=== PATIENT | female | born 1960 | race Caucasian/White ===

== ENCOUNTER 2023-04-23 10:24 | Outpatient (OUT) | payer OTHER, SELFPAY ==
[2023-04-23 10:41] LABS: Hematocrit 42.2 % (36.0-48.0); Hemoglobin 13.1 g/dL (12.0-16.0); Mean Corpuscular Hemoglobin 29.3 pg (26.7-34.0); Mean Corpuscular Volume 94.4 fL (81.0-99.0); Mean Platelet Volume 10.9 fL (9.5-13.5); Platelet Count 209 10^3/uL (150-450); Red Blood Count 4.47 10^6/uL (4.20-5.40); Red Cell Distribution Width 12.4 % (11.0-15.0); White Blood Count 7.4 10^3/uL (4.0-11.0)
[2023-04-23 10:42] LABS: Bilirubin Urine NEGATIVE (NEGATIVE); Blood Urine NEGATIVE (NEGATIVE); Clarity Urine CLEAR (CLEAR); Color Urine YELLOW (YELLOW); Glucose Urine UA NEGATIVE (NEGATIVE); Ketones Urine NEGATIVE (NEGATIVE); Leukocyte Esterase Urine NEGATIVE (NEGATIVE); Nitrite Urine NEGATIVE (NEGATIVE); Protein Urine NEGATIVE (NEG/TRACE); Urobilinogen Urine 0.2 EU/dL (0.2-1.0); pH Urine 5.5 (5.0-9.0)
[2023-04-23 11:08] LABS: Creatinine Urine Random 138.92 mg/dL (20.00-300.00); Total Protein Urine Random 14.2 mg/dL (<=11.9)
[2023-04-23 11:16] LABS: WBC Urine NONE SEEN #/HPF (NONE SEEN)
[2023-04-23 11:17] LABS: Bacteria Urine MODERATE #/HPF (NONE SEEN); Mucus Urine NONE SEEN (NONE SEEN); RBC Urine NONE SEEN #/HPF (0-2); Squamous Epithelial Cell Urine MODERATE #/LPF (NONE/RARE)
[2023-04-23 12:05] LABS: Albumin Level 3.4 g/dL (3.4-5.0); Anion Gap 10.8; BUN Creatinine Ratio 11.2; Carbon Dioxide 27.8 mmol/L (21.0-32.0); Chloride 103 mmol/L (98-107); Estimated GFR (African America 57 (>=60); Estimated GFR (Non-African Ame 47 (>=60); Glucose 136 mg/dL (74-106); Magnesium 2.2 mg/dL (1.8-2.4); Phosphorus 3.2 mg/dL (2.6-4.7); Potassium 3.6 mmol/L (3.5-5.1); Sodium 138 mmol/L (136-145); Uric Acid 5.6 mg/dL (2.6-6.0)
[2023-04-24 12:09] LABS: PTH, Intact 38 pg/mL (15-65)
== END 2023-04-23 10:25 | disposition home or self-care (01) ==
LOC: LAB 10:24
PROVIDERS: Visit Provider Internal Medicine
DX: I12.9 Hypertensive chronic kidney disease with stage 1 through stage 4 chronic kidney disease, or unspecified chronic kidney disease (principal); N18.30 Chronic kidney disease, stage 3 unspecified; E55.9 Vitamin D deficiency, unspecified; N20.0 Calculus of kidney; R31.29 Other microscopic hematuria
CPT/HCPCS: 36415; 80069; 81001; 82306; 82570; 83735; 83970; 84156; 84550; 85027

== ENCOUNTER 2024-03-26 10:03 | Outpatient (OUT) | payer OTHER, SELFPAY ==
[2024-03-26 10:28] LABS: Hematocrit 42.9 % (36.0-48.0); Hemoglobin 13.5 g/dL (12.0-16.0); Mean Corpuscular HGB Conc 31.5 g/dL (29.9-35.2); Mean Corpuscular Hemoglobin 29.1 pg (26.7-34.0); Mean Corpuscular Volume 92.5 fL (81.0-99.0); Mean Platelet Volume 10.9 fL (9.5-13.5); Platelet Count 226 10^3/uL (150-450); Red Blood Count 4.64 10^6/uL (4.20-5.40); Red Cell Distribution Width 12.6 % (11.0-15.0)
--- OUTSIDE RECORDS SUMMARY | 2024-03-26 10:29 | XMS_ITS | CCD ---
Author Organization [facility] Care Team Providers Care [facility] Service Specialist Name Role Phone Canelo Woodard Unavailable Libby Mcclure Unavailable Louis Stanley Unavailable Angus Carl Unavailable ROB, CANELO Consulting Unavailable ROB, CANELO Admitting Unavailable LIBBY MCCLURE Primary Care Unavailable ROB, CANELO Attending Unavailable ROB, CANELO Admitting Unavailable LIBBY MCCLURE Primary Care Unavailable ROB, CANELO Attending Unavailable ROB, CANELO Consulting Unavailable No Pcp, No Pcp Primary Care Provider Unavailabl e KIM COLLIER Attending Unavailable NO PCP, NO PCP Primary Care Unavailable KIM COLLIER Attending Unavailable KIM COLLIER Referring Unavailable NO PCP, NO PCP Primary Care Unavailable JUWAN STRINGER Referring Unavailable NO PCP, NO PCP Primary Care Unavailable JUAN MANUEL CASTELLANO Referring Unavailable NO PCP, NO PCP Primary Care Unavailable Medications Current Medications Medication Drug Class(es) Dates Sig (Normalized) Sig (Original) amLODIPine 5 mg oral tablet (5 sources) Dihydropyridine Calcium Channel [place] take 1 tablet by mouth every twenty-four hours amLODIPine Besylate 5 MG 1 tablet Orally Once a day for 90 day(s) Active aspirin 81 mg chewable tablet (14 sources) Platelet Aggregation Inhibitor, Nonsteroidal Anti-inflammatory Drug Start: 02-01-2024 aspirin 81 mg chewable tablet Chew 1 tablet (81 mg total) and swallow in the morning. 90 tablet 1 02/01/2024 Active Start: 01-30-2023 aspirin 81 mg chewable tablet Chew 1 tablet (81 mg total) and swallow in the morning. 90 tablet 3 01/30/2023 Active take 1 tablet by araon th once daily Aspirin 81 81 MG 1 tablet Orally Once a day Active atorvastatin 40 mg oral tablet (15 sources) HMG-CoA Reductase Inhibitor Start: 01-18-2024 take 1 tablet by mouth once daily atorvastatin (LIPITOR) 40 mg tablet take 1 tablet by mouth nightly 90 tablet 01/18/2024 Active Start: 01-30-2023 End: 05-03-2023 take 1 tablet by mouth once daily atorvastatin (LIPITOR) 40 mg tablet TAKE 1 TABLET BY MOUTH NIGHTLY 90 tablet 2 05/03/2023 Active take 1 tablet by aaron th every twenty-four hours Atorvastatin Calcium 40 MG 1 tablet Orally Once a day for 90 day(s) Active cetirizine hydrochloride 10 mg oral tablet (19 sources) Histamine-1 Receptor Antagonist Start: 09-26-2019 take 1 tablet by mouth every twenty-four hours Cetirizine HCl 10 MG 1 tablet Orally Once a day for 90 days September, Active Dosoquin 5500-200 UNIT-MCG (8 sources) take 1 tablet by mouth once daily at mealtime Dosoquin 5500-200 UNIT-MCG 1 tablet daily with food Orally 3xweek Active Dosoquin 5500-20 0 UNIT-MCG 1 tablet daily with food Orally every other day for 90 days Active Dosoquin 5500-20 0 UNIT-MCG 1 tablet daily with food Orally every other day Active fluticasone propionate 0.05 mg/actuat metered dose nasal spray (1 source) Corticosteroid Start: 10-19-2021 take 2 spray(s) nasal route once daily Fluticasone Propionate 50 MCG/ACT 2 sprays Nasally Once a day for 14 day(s) Oct, Active Folinic-Plus 4-50-2 MG (14 sources) take 1 tablet by mouth once daily Folinic-Plus 4-50-2 MG 1 tablet Orally qd for 30 days Active take 1 tablet by mouth once sue y Folinic-Plus 4-50-2 MG 1 tablet Orally qd for 90 days Active hydrocortisone 10 mg/ml / neomycin 3.5 mg/ml / polymyxin b [id number] unt/ml otic suspension (1 source) Aminoglycoside Antibacterial, Polymyxin-class Antibacterial, Corticosteroid Start: 10-19-2021 Kpoxulqt-Ignjqbxvl-JR 3.5-88341-3 3 drops right ear Three times a day for 7 days Oct, Active lisinopril 2.5 mg oral tablet (20 sources) Angiotensin Converting Enzyme Inhibitor Start: 02-14-2023 End: 08-06-2023 take 1 tablet by mouth once daily in the morning lisinopriL (PRINIVIL,ZESTRIL) 2.5 mg tablet take 1 tablet by mouth every morning 90 tablet 2 08/06/2023 Active take 1 tablet by aaron th every twenty-four hours Lisinopril 2.5 MG 1 Tablet Orally Once a day Active take 1 tablet by aaron th every twenty-four hours Lisinopril 40 MG 1 Tablet Orally Once a day for 90 day(s) Active 24 hr metoprolol succinate 25 mg extended release oral tablet (14 sources) beta-Adrenergic [place] Start: 01-18-2024 take 1 tablet by mouth once daily in the morning metoprolol succinate XL (TOPROL XL) 25 mg 24 hr tablet take 1 tablet by mouth every morning 90 tablet 1 01/18/2024 Active Start: 01-30-2023 take 1 tablet by aaron th once daily in the morning metoprolol succinate XL (TOPROL XL) 25 mg 24 hr tablet TAKE 1 TABLET BY MOUTH EVERY MORNING 90 tablet 3 01/30/2023 Active take 1 tablet by aaron th every twenty-four hours Metoprolol Succinate ER 25 MG 1 tablet Orally Once a day Active Nitro Sublingual 0.4 0.4mg (9 sources) Nitro Sublingual 0.4 0.4mg 1 Sublingual Every 5min x3 Active nitroglycerin 0.4 mg sublingual tablet (5 sources) Nitrate Vasodilator Start: 05-28-19 nitroglycerin (NITROSTAT) 0.[address] 1 tablet (0.4 mg total) under the tongue every 5 (five) minutes as needed for chest pain. 90 tablet 1 05/28/2021 Active pantoprazole 40 mg delayed release oral tablet (19 sources) Proton Pump Inhibitor Start: 11-23-19 21 take 1 tablet by mouth every twenty-four hours Pantoprazole Sodium 40 MG 1 tablet Orally Once a day for 30 day(s) Nov, Active 24 hr propranolol hydrochloride 80 mg extended release oral capsule (5 sources) beta-Adrenergic [place] Start: 11-07-19 20 take 1 capsule by mouth every twenty-four hours Propranolol HCl ER 80 MG 1 capsule Orally Once a day for 90 days Nov, Active Completed/Discontinued Medications Medication Drug Class(es) Dates Sig (Normalized) Sig (Original) prasugrel (8 sources) P2Y12 Platelet Inhibitor Prasugr el Hcl 10 mg Take as directed Not-Taking Prasugrel Hcl 10 mg Take as directed Active Problems Active Problems Problem Classification Problem Date Documented Date Episodic/Chronic Abdominal pain (15 sources) Epigastric pain; Translations: [Epigastric pain] Episodic Acute myocardial infarction (7 sources) Myocardial infarction; Translations: [ST elevation (STEMI) myocardial infarction of unspecified site] Onset: 05-26-2021 05-26-2021 Chronic Calculus of urinary tract (18 sources) Kidney stone; Translations: [Calculus of kidney] Onset: 08-18-2021 Resolved: 08-18-2021 Episodic Chronic kidney disease (17 sources) Chronic kidney disease; Translations: [Chronic kidney disease, stage III (moderate)] Onset: 08-18-2021 Resolved: 08-18-2021 Coronary atherosclerosis and other heart disease (2 sources) Arteriosclerotic vascular disease; Translations: [Atherosclerotic heart disease of [place] coronary artery without angina pectoris] Onset: 07-23-2023 07-23-2023 Chronic Disorders of lipid metabolism (7 sources) Hyperlipidemia; Translations: [Other hyperlipidemia] Onset: 01-10-2022 01-10-2022 Chronic Essential hypertension (20 sources) Essential hypertension; Translations: [Essential (primary) hypertension] Onset: 06-06-2021 Resolved: 11-29-2021 Chronic Gastroduodenal ulcer (except hemorrhage) (15 sources) Peptic ulcer; Translations: [Peptic ulcer, site unspecified, unspecified as acute or chronic, without hemorrhage or perforation] Chronic Genitourinary symptoms and ill-defined conditions (4 sources) Other microscopic hematuria; Translations: [OTHER MICROSCOPIC HEMATURIA] Onset: 08-18-2021 Resolved: 08-18-2021 Episodic Hypertension with complications and secondary hypertension (20 sources) Chronic kidney disease due to hypertension; Translations: [Hypertensive chronic kidney disease with stage 1 through stage 4 chronic kidney disease, or unspecified chronic kidney disease] Onset: 08-18-2021 Resolved: 08-18-2021 Chronic Nutritional deficiencies (19 sources) Vitamin D deficiency; Translations: [Vitamin D deficiency, unspecified] Onset: 04-06-2021 Resolved: 08-18-2021 Chronic Other aftercare (1 source) Encounter for follow-up examination after completed treatment for conditions other than malignant neoplasm Episodic Other aftercare (1 source) Other mcc (current) drug therapy; Translations: [Other mcc (current) drug therapy] Onset: 01-28-2024 Episodic Other screening for suspected conditions (not mental disorders or infectious disease) (1 source) Encounter for screening for malignant neoplasm of colon Episodic Unclassified (1 source) CHRN KIDNEY DISEASE STG 3 UNSP; Translations: [CHRN KIDNEY DISEASE STG 3 UNSP] Onset: 10-04-2022 Past or Other Problems Problem Classification Problem Date Documented Da te Episodic/Chronic Conditions associated with dizziness or vertigo (2 sources) Dizziness; Translations: [Dizziness and giddiness] Onset: 07-23-2023 07-23-2023 Episodic Residual codes; unclassified (6 sources) Tobacco user; Translations: [Tobacco use] Onset: 01-10-2022 01-10-2022 Episodic Residual codes; unclassified (1 source) Tobacco use; Translations: [Tobacco use] Onset: 01-10-2022 Episodic Results Test Name Value Interpretation Reference Range Facility BASIC METABOLIC PANLon 02-19 Anion gap [Moles/Vol] 11 mmol/L Normal 5-15 [facility] Comment on above: Performed By: #### B MP #### [facility] ([id number]) [address] [place] [address], [address] [place] [address] Calcium [Mass/Vol] 9.3 mg/dL Normal 8.5-10.5 [facility] Comment on above: Performed By: #### B MP #### [facility] ([id number]) [address] [place] [address], [address] [place] [address] Chloride [Moles/Vol] 104 mmol/L Normal 98-109 [facility] Comment on above: Performed By: #### B MP #### [facility] ([id number]) [address] [place] [address], [address] [place] [address] CO2 [Moles/Vol] 25 mmol/L Normal 22-32 [facility] Comment on above: Performed By: #### B MP #### [facility] ([id number]) [address] [address] [place] [address] Creatinine [Mass/Vol] 1.09 mg/dL High 0.40-1.00 [facility] Comment on above: Result Comment: METH OD TRACEABLE TO IDMS STANDARD Performed By: #### B MP #### [facility] ([id number]) [address] [address] [place] [address] GFR/1.73 sq M.predicted among non-blacks MDRD (S/P/Bld) [Vol rate/Area] 56 mL/min/{1.73_m2} Low >59 [facility] Comment on above: Result Comment: Reported eGFR is based on the CKD-EPI 2020 equation that does not use a race coefficient. Performed By: #### B MP #### [facility] ([id number]) [address] [address] [place] [address] Glucose [Mass/Vol] 112 mg/dL High 65-99 [facility] Comment on above: Performed By: #### B MP #### [facility] ([id number]) [address] [address] [place] [address] Potassium [Moles/Vol] 4.0 mmol/L Normal 3.5-5.0 [facility] Comment on above: Performed By: #### B MP #### [facility] ([id number]) [address] [address] [place] [address] Sodium [Moles/Vol] 140 mmol/L Normal 134-146 [facility] Comment on above: Performed By: #### B MP #### [facility] ([id number]) [address] [address] [place] [address] Urea nitrogen [Mass/Vol] 15 mg/dL Normal 5-27 [facility] Comment on above: Performed By: #### B MP #### [facility] ([id number]) [address] [place] [address] BASIC METABOLIC PANLon 01-27 Anion gap [Moles/Vol] 7 mmol/L Normal 5-15 [facility] Comment on above: Performed By: #### 2 4331-1, BMP #### [facility] ([id number]) [address], [address] [place] [address] Calcium [Mass/Vol] 9.5 mg/dL Normal 8.5-10.5 [facility] Comment on above: Performed By: #### 2 4331-1, BMP #### [facility] ([id number]) [address], [address] [place] [address] Chloride [Moles/Vol] 103 mmol/L Normal 98-109 [facility] Comment on above: Performed By: #### 2 4331-1, BMP #### [facility] ([id number]) [address], [address] [place] [address] CO2 [Moles/Vol] 28 mmol/L Normal 22-32 [facility] Comment on above: Performed By: #### 2 4331-1, BMP #### [facility] ([id number]) [address], [address] [place] [address] Creatinine [Mass/Vol] 1.26 mg/dL High 0.40-1.00 [facility] Comment on above: Result Comment: METH OD TRACEABLE TO IDMS STANDARD Performed By: #### 2 4331-1, BMP #### [facility] ([id number]) [address], [address] [place] [address] GFR/1.73 sq M.predicted among non-blacks MDRD (S/P/Bld) [Vol rate/Area] 47 mL/min/{1.73_m2} Low >59 [facility] Comment on above: Result Comment: Reported eGFR is based on the CKD-EPI 2020 equation that does not use a race coefficient. Performed By: #### 2 4331-1, BMP #### [facility] ([id number]) [address], [address] [place] [address] Glucose [Mass/Vol] 102 mg/dL High 65-99 [facility] Comment on above: Performed By: #### 2 4331-1, BMP #### [facility] ([id number]) [address], [address] [place] [address] Potassium [Moles/Vol] 4.2 mmol/L Normal 3.5-5.0 [facility] Comment on above: Performed By: #### 2 4331-1, BMP #### [facility] ([id number]) [address], [address] [place] [address] Sodium [Moles/Vol] 138 mmol/L Normal 134-146 [facility] Comment on above: Performed By: #### 2 4331-1, BMP #### [facility] ([id number]) [address], [address] [place] [address] Urea nitrogen [Mass/Vol] 11 mg/dL Normal 5-27 [facility] Comment on above: Performed By: #### 2 4331-1, BMP #### [facility] ([id number]) [address], [address] [place] [address] Lipid 1996 panelon 4 Cholesterol [Mass/Vol] 149 mg/dL Low 150-200 [facility] Comment on above: Performed By: #### 2 4331-1, BMP #### [facility] ([id number]) [address], [address] [place] [address] Cholesterol in HDL [Mass/Vol] 48 mg/dL Normal >39 [facility] Comment on above: Result Comment: HDL <40 mg/dL - High Risk HDL > or = 40mg/dL- Desirable HDL >60 mg/dL - Negative Risk Performed By: #### 2 4331-1, BMP #### [facility] ([id number]) [address], [address] [place] [address] Cholesterol in LDL [Mass/Vol] 76 mg/dL Normal <130 [facility] Comment on above: Result Comment: LDL <100 mg/dL - Desirable LDL >160 mg/dL - High Risk Performed By: #### 2 4331-1, BMP #### [facility] ([id number]) [address], [address] [place] [address] Cholesterol in VLDL [Mass/Vol] 25 mg/dL Normal 0-30 [facility] Comment on above: Performed By: #### 2 4331-1, BMP #### [facility] ([id number]) [address], [address] [place] [address] CHOLESTEROL:HDL 3.1 Normal 1.0-5.0 [facility] Comment on above: Performed By: #### 2 4331-1, BMP #### [facility] ([id number]) [address], [address] [place] [address] Triglyceride [Mass/Vol] 127 mg/dL Normal 27-150 [facility] Comment on above: Performed By: #### 2 4331-1, BMP #### [facility] ([id number]) [address], [address] [place] [address] PTH INTACTon 09-27-2022 PTH, Intact 44 pg/mL Normal 15-65 [facility] Comment on above: Performed By: #### P THINT #### [facility] [address] [address] [address] Abel Mora HEMOGRAM AND PLATELon 2022 Hematocrit (Bld) [Volume fraction] 41.8 % Normal 36.0-48.0 [facility] Comment on above: Performed By: #### H H #### [facility] [address] [place] [address] Dr. Abel Mora Hemoglobin (Bld) [Mass/Vol] 13.0 g/dL Normal 12.0-16.0 [facility] Comment on above: Performed By: #### H H #### [facility] [address] [place] [address] Dr. Abel Mora MCH (RBC) [Entitic mass] 29.2 pg Normal 26.7-34.0 [facility] Comment on above: Performed By: #### H H #### [facility] [address] [place] [address] Dr. Abel Mora MCHC (RBC) [Mass/Vol] 31.1 g/dL Normal 29.9-35.2 [facility] Comment on above: Performed By: #### H H #### [facility] [address] [place] [address] Dr. Abel Mora MCV (RBC) [Entitic vol] 93.9 fL Normal 81.0-99.0 [facility] Comment on above: Performed By: #### H H #### [facility] [address] [place] [address] Dr. Abel Mora PLT 221 103/ul Normal 150-450 [facility] Comment on above: Performed By: #### H H #### [facility] [address] [place] [address] Dr. Abel Mora RBC 4.45 106/ul Normal 4.20-5.40 [facility] Comment on above: Performed By: #### H H #### [facility] [address] [place] [address] Dr. Abel Mora WBC 7.6 103/ul Normal 4.0-11.0 [facility] Comment on above: Performed By: #### H H #### [facility] [address] [place] [address] Dr. Abel Mora MAGNESIUMon 09-26-2022 Magnesium [Mass/Vol] 2.2 mg/dL Normal 1.8-2.4 [facility] Comment on above: Performed By: #### U CAITY, RENAL, MG #### [facility] [address] [address] [address] Abel Mora RENAL FUNCTION PANELon 09-26 Albumin [Mass/Vol] 3.5 g/dL Normal 3.4-5.0 [facility] Comment on above: Performed By: #### U CAITY, RENAL, MG #### [facility] [address] [address] [address] Abel Mora Calcium [Mass/Vol] 9.0 mg/dL Normal 8.5-10.1 [facility] Comment on above: Performed By: #### U CAITY, RENAL, MG #### [facility] [address] [address] [address] Abel Mora Chloride [Moles/Vol] 104 mmol/L Normal 98-107 [facility] Comment on above: Performed By: #### U CAITY, RENAL, MG #### [facility] [address] [address] [address] Abel Mora CO2 [Moles/Vol] 27.4 mmol/L Normal 21.0-32.0 [facility] Comment on above: Performed By: #### U CAITY, RENAL, MG #### [facility] [address] [address] [address] Abel Mora Creatinine [Mass/Vol] 1.16 mg/dL Critically high 0.55-1.02 [facility] Comment on above: Performed By: #### U CAITY, RENAL, MG #### [facility] [address] [address] [address] Abel Mora EGFR-AF PALESTINIAN 57 mL/min/1.73m2 Critically low >=60 [facility] Comment on above: Performed By: #### U CAITY, RENAL, MG #### [facility] [address] [address] [address] Abel Mora EGFR-NON AF PALESTINIAN 47 mL/min/1.73m2 Critically low >=60 [facility] Comment on above: Performed By: #### U CAITY, RENAL, MG #### [facility] [address] [address] [address] Abel Mora Glucose [Mass/Vol] 99 mg/dL Normal 74-106 [facility] Comment on above: Performed By: #### U CAITY, RENAL, MG #### [facility] [address] [address] [address] Abel Mora Phosphate [Mass/Vol] 3.0 mg/dL Normal 2.6-4.7 [facility] Comment on above: Performed By: #### U CAITY, RENAL, MG #### [facility] [address] [place] [address] Dr. Abel Mora Potassium [Moles/Vol] 4.1 mmol/L Normal 3.5-5.1 [facility] Comment on above: Performed By: #### U CAITY, RENAL, MG #### [facility] [address] [place] [address] Dr. Abel Mora Sodium [Moles/Vol] 142 mmol/L Normal 136-145 [facility] Comment on above: Performed By: #### U CAITY, RENAL, MG #### [facility] [address] [place] [address] Dr. Abel Mora Urea nitrogen [Mass/Vol] 11.0 mg/dL Normal 7.0-18.0 [facility] Comment on above: Performed By: #### U CAITY, RENAL, MG #### [facility] [address] [place] [address] Dr. Abel Mora UA RANDOM W/MICROSCOPICon BACTERIA TRACE Abnormal NONE SEEN [facility] Comment on above: Performed By: #### U AMIC #### [facility] [address] [place] [address] Dr. Abel Mora Bilirubin Ql (U) Negative Normal NEGATIVE [facility] Comment on above: Performed By: #### U AMIC #### [facility] [address] [place] [address] Dr. Abel Mora CAST NONE SEEN Normal NONE SEEN [facility] Comment on above: Performed By: #### U AMIC #### [facility] [address] [address] [address] Abel Mora Clarity (U) CLEAR Normal CLEAR [facility] Comment on above: Performed By: #### U AMIC #### [facility] [address] [address] [address] Abel Mora Color (U) LT. YELLOW Normal YELLOW [facility] Comment on above: Performed By: #### U AMIC #### [facility] [address] [address] [address] Abel Mora Crystals LM Nom (Urine sed) NONE SEEN Normal NONE SEEN [facility] Comment on above: Performed By: #### U AMIC #### [facility] [address] [address] [address] Abel Mora Epithelial cells LM Ql (Urine sed) FEW Abnormal NONE SEEN /RARE [facility] Comment on above: Performed By: #### U AMIC #### [facility] [address] [address] [address] Abel Mora Glucose Ql (U) Negative Normal NEGATIVE [facility] Comment on above: Performed By: #### U AMIC #### [facility] [address] [address] [address] Abel Mora Hemoglobin Ql (U) TRACE-INTACT Abnormal NEGATIVE [facility] Comment on above: Performed By: #### U AMIC #### [facility] [address] [address] [address] Abel Mora Ketones Ql (U) Negative Normal NEGATIVE [facility] Comment on above: Performed By: #### U AMIC #### [facility] [address] [address] [address] Abel Mora LEUKOCYTES Negative Normal NEGATIVE [facility] Comment on above: Performed By: #### U AMIC #### [facility] [address] [address] [address] Abel Mora MUCOUS NONE SEEN Normal NONE SEEN [facility] Comment on above: Performed By: #### U AMIC #### [facility] [facility] [address] [address] [address] Abel Mora Nitrite Ql (U) Negative Normal NEGATIVE The [facility] Comment on above: Performed By: #### U AMIC #### [facility] [address] [place] [address] Dr. Abel Mora pH (U) 5.5 [pH] Normal 5-9 [facility] Comment on above: Performed By: #### U AMIC #### [facility] [address] [address] [address] Abel Mora RBC 0-2 Normal 0-2 [facility] Comment on above: Performed By: #### U AMIC #### [facility] [address] [place] [address] Dr. Abel Mora SPEC GRAVITY 1.025 Normal 1.005-<=1.025 [facility] Comment on above: Performed By: #### U AMIC #### [facility] [address] [place] [address] Dr. Abel Mora UA PROTEIN Negative Normal NEGATIVE/ TRACE [facility] Comment on above: Performed By: #### U AMIC #### [facility] [address] [address] [address] Abel Mora Urobilinogen Qn (U) 0.2 {Rolando'U}/dL Normal 0.2 - 1.0 [facility] Comment on above: Performed By: #### U AMIC #### [facility] [address] [place] [address] Dr. Abel Mora WBC 0-2 Abnormal NONE SEEN [facility] Comment on above: Performed By: #### U AMIC #### [facility] [address] [address] [address] Abel Mora URIC ACID SERUMon 09-26-2022 Urate [Mass/Vol] 5.8 mg/dL Normal 2.6-6.0 [facility] Comment on above: Performed By: #### P THINT #### [facility] [address] [place] [address] Dr. Abel Mora URINE T PROTEIN CREAT RATIOo n 09-26-2022 Protein (U) [Mass/Vol] 18.1 mg/dL Critically high <=12.0 [facility] Comment on above: Performed By: #### U RTPCR #### [facility] [address] [place] [address] Dr. Abel Mora UR PROT CREAT RAT 0.09 Normal [facility] Comment on above: Performed By: #### U RTPCR #### [facility] [address] [place] [address] Dr. Abel Mora URINE CREAT 204.29 mg/dL Normal 20.00-300.00 [facility] Comment on above: Performed By: #### U RTPCR #### [facility] [address] [place] [address] Dr. Abel Mora VITAMIN D 25 OHon 09-26-2022 VIT D 25-OH 54.5 ng/mL Normal [facility] Comment on above: Performed By: #### V ITAD #### [facility] [address] [place] [address] Dr. Abel Mora VIT D RANGES SEE BELOW Normal [facility] Comment on above: Result Comment: <20 ng/mL Vit D deficient 20 - <30 ng/mL Vit D insufficient 30 - 100 ng/mL Vit D sufficient >100 ng/mL Potential Toxicity Performed By: #### V ITAD #### [facility] [address] [place] [address] Dr. Abel Mora PTH INTACTon 03-03-2022 PTH, Intact 23 pg/mL Normal 15-65 [facility] Comment on above: Performed By: #### P THINT #### [facility] [address] [place] [address] Dr. Abel Mora HEMOGRAM AND PLATELon 2021 Hematocrit (Bld) [Volume fraction] 39.1 % Normal 36.0-48.0 [facility] Comment on above: Performed By: #### P THINT #### [facility] [address] [place] [address] Dr. Abel Mora Hemoglobin (Bld) [Mass/Vol] 12.6 g/dL Normal 12.0-16.0 [facility] Comment on above: Performed By: #### P THINT #### [facility] [address] [place] [address] Dr. Abel Mora MCH (RBC) [Entitic mass] 29.8 pg Normal 26.7-34.0 [facility] Comment on above: Performed By: #### P THINT #### [facility] [address] [place] [address] Dr. Abel Mora MCHC (RBC) [Mass/Vol] 32.2 g/dL Normal 29.9-35.2 [facility] Comment on above: Performed By: #### P THINT #### [facility] [address] [place] [address] Dr. Abel Mora MCV (RBC) [Entitic vol] 92.4 fL Normal 81.0-99.0 [facility] Comment on above: Performed By: #### P THINT #### [facility] [address] [place] [address] Dr. Abel Mora PLT 223 103/ul Normal 150-450 [facility] Comment on above: Performed By: #### P THINT #### [facility] [address] [place] [address] Dr. Abel Mora RBC 4.23 106/ul Normal 4.20-5.40 [facility] Comment on above: Performed By: #### P THINT #### [facility] [address] [place] [address] Dr. Abel Mora WBC 7.7 103/ul Normal 4.0-11.0 [facility] Comment on above: Performed By: #### P THINT #### [facility] [address] [place] [address] Dr. Abel Mora MAGNESIUMon 03-02-2022 Magnesium [Mass/Vol] 2.2 mg/dL Normal 1.8-2.4 [facility] Comment on above: Performed By: #### P THINT #### [facility] [address] [place] [address] Dr. Abel Mora RENAL FUNCTION PANELon 03-02 Albumin [Mass/Vol] 3.5 g/dL Normal 3.4-5.0 [facility] Comment on above: Performed By: #### P THINT #### [facility] [address] [address] [address] Abel Mora Calcium [Mass/Vol] 9.1 mg/dL Normal 8.5-10.1 [facility] Comment on above: Performed By: #### P THINT #### [facility] [address] [address] [address] Abel Mora Chloride [Moles/Vol] 104 mmol/L Normal 98-107 [facility] Comment on above: Performed By: #### P THINT #### [facility] [address] [place] [address] Dr. Abel Mora CO2 [Moles/Vol] 29.5 mmol/L Normal 21.0-32.0 [facility] Comment on above: Performed By: #### P THINT #### [facility] [address] [place] [address] Dr. Abel Mora Creatinine [Mass/Vol] 1.13 mg/dL Critically high 0.55-1.02 [facility] Comment on above: Performed By: #### P THINT #### [facility] [address] [place] [address] Dr. Abel Mora EGFR-AF PALESTINIAN 59 mL/min/1.73m2 Critically low >=60 [facility] Comment on above: Performed By: #### P THINT #### [facility] [address] [place] [address] Dr. Abel Mora EGFR-NON AF PALESTINIAN 49 mL/min/1.73m2 Critically low >=60 [facility] Comment on above: Performed By: #### P THINT #### [facility] [address] [place] [address] Dr. Abel Mora Glucose [Mass/Vol] 86 mg/dL Normal 74-106 [facility] Comment on above: Performed By: #### P THINT #### [facility] [address] [place] [address] Dr. Abel Mora Phosphate [Mass/Vol] 4.5 mg/dL Normal 2.6-4.7 [facility] Comment on above: Performed By: #### P THINT #### [facility] [address] [place] [address] Dr. Abel Mora Potassium [Moles/Vol] 3.8 mmol/L Normal 3.5-5.1 [facility] Comment on above: Performed By: #### P THINT #### [facility] [address] [place] [address] Dr. Abel Mora Sodium [Moles/Vol] 140 mmol/L Normal 136-145 [facility] Comment on above: Performed By: #### P THINT #### [facility] [address] [place] [address] Dr. Abel Mora Urea nitrogen [Mass/Vol] 12.0 mg/dL Normal 7.0-18.0 [facility] Comment on above: Performed By: #### P THINT #### [facility] [address] [place] [address] Dr. Abel Mora UA RANDOM W/MICROSCOPICon BACTERIA NONE SEEN Normal NONE SEEN [facility] Comment on above: Performed By: #### U AMIC #### [facility] [address] [place] [address] Dr. Abel Mora Bilirubin Ql (U) Negative Normal NEGATIVE The [facility] Comment on above: Performed By: #### U AMIC #### [facility] [address] [place] [address] Dr. Abel Mora CAST NONE SEEN Normal NONE SEEN [facility] Comment on above: Performed By: #### U AMIC #### [facility] [address] [place] [address] Dr. Abel Mora Clarity (U) CLEAR Normal CLEAR [facility] Comment on above: Performed By: #### U AMIC #### [facility] [address] [place] [address] Dr. Abel Mora Color (U) LT. YELLOW Normal YELLOW [facility] Comment on above: Performed By: #### U AMIC #### [facility] [address] [address] [address] Abel Mora Crystals LM Nom (Urine sed) NONE SEEN Normal NONE SEEN [facility] Comment on above: Performed By: #### U AMIC #### [facility] [address] [address] [address] Abel Mora Epithelial cells LM Ql (Urine sed) FEW Abnormal NONE SEEN /RARE [facility] Comment on above: Performed By: #### U AMIC #### [facility] [address] [address] [address] Abel Mora Glucose Ql (U) Negative Normal NEGATIVE [facility] Comment on above: Performed By: #### U AMIC #### [facility] [address] [address] [address] Abel Mora Hemoglobin Ql (U) Negative Normal NEGATIVE The [facility] Comment on above: Performed By: #### U AMIC #### [facility] [address] [address] [address] Abel Mora Ketones Ql (U) Negative Normal NEGATIVE [facility] Comment on above: Performed By: #### U AMIC #### [facility] [address] [address] [address] bAel Mora LEUKOCYTES Negative Normal NEGATIVE [facility] Comment on above: Performed By: #### U AMIC #### [facility] [address] [address] [address] Abel Mora MUCOUS NONE SEEN Normal NONE SEEN [facility] Comment on above: Performed By: #### U AMIC #### [facility] [address] [address] [address] Abel Mora Nitrite Ql (U) Negative Normal NEGATIVE [facility] Comment on above: Performed By: #### U AMIC #### [facility] [address] [place] [address] Dr. Abel Mora pH (U) 6.0 [pH] Normal 5-9 [facility] Comment on above: Performed By: #### U AMIC #### [facility] [address] [address] [address] Abel Mora RBC NONE SEEN Abnormal 0-2 [facility] Comment on above: Performed By: #### U AMIC #### [facility] [address] [place] [address] Dr. Abel Mora SPEC GRAVITY <=1.005 Abnormal 1.005-<=1.025 [facility] Comment on above: Performed By: #### U AMIC #### [facility] [address] [place] [address] Dr. Abel Mora UA PROTEIN Negative Normal NEGATIVE/ TRACE [facility] Comment on above: Performed By: #### U AMIC #### [facility] [address] [place] [address] Dr. Abel Mora Urobilinogen Qn (U) 0.2 {Rolando'U}/dL Normal 0.2 - 1.0 [facility] Comment on above: Performed By: #### U AMIC #### [facility] [address] [place] [address] Dr. Abel Mora WBC NONE SEEN Normal NONE SEEN [facility] Comment on above: Performed By: #### U AMIC #### [facility] [address] [place] [address] Dr. Abel Mora URIC ACID SERUMon 03-02-2022 Urate [Mass/Vol] 5.9 mg/dL Normal 2.6-6.0 [facility] Comment on above: Performed By: #### P THINT #### [facility] [address] [place] [address] Dr. Abel Mora URINE T PROTEIN CREAT RATIOo n 03-02-2022 Protein (U) [Mass/Vol] 0.5 mg/dL Normal <=12.0 [facility] Comment on above: Performed By: #### U RTPCR #### [facility] [address] [place] [address] Dr. Abel Mora UR PROT CREAT RAT 0.02 Normal [facility] Comment on above: Performed By: #### U RTPCR #### [facility] [address] [place] [address] Dr. Abel Mora URINE CREAT 23.17 mg/dL Normal 20.00-300.00 [facility] Comment on above: Performed By: #### U RTPCR #### [facility] [address] [place] [address] Dr. Abel Mora VITAMIN D 25 OHon 03-02-2022 VIT D 25-OH 68.4 ng/mL Normal [facility] Comment on above: Performed By: #### P THINT #### [facility] [address] [place] [address] Dr. Abel Mora VIT D RANGES SEE BELOW Normal [facility] Comment on above: Result Comment: <20 ng/mL Vit D deficient 20 - <30 ng/mL Vit D insufficient 30 - 100 ng/mL Vit D sufficient >100 ng/mL Potential Toxicity Performed By: #### P THINT #### [facility] [address] [place] [address] Dr. Abel Mora Consent for Procedure/Surger yon 11-18-2020 Consent for Procedure/Surgery [id number] #[id number]:127 Normal [facility] Ambulatory Clinical Summaryo n 11-17-2020 Ambulatory Clinical Summary {[id number]}CD:[id number] Normal [facility] Coding Summary.on 11-17-2020 Coding Summary. CD:[id number] Gh0bWw+PGhlYWQ+PE1FV WIiO25whYBjlN9XC2cIG U8MYPWUJRBQTI6BMZ6ss AW0GCagY8MaziVg JkmorJShIT24HZj7IVM1 cPvbZAoafQ2szFGnF9p6 WuNzYK10tK96LMqfCNOz KfJ9OcNqpfhxlMLf L2jnNrLhjUEuWoo+PHRh YmxlIHdpZHRoPScxMDAl SyLuvLlmIZ5lIi1sRCUq LWNvbGxhcHNlOiBj o0czVGAeDSpvTH4evApx E6YuwRX0XMMsn0o6Is05 dHI+KHRhXGT5tPjcXEeo t196HeCem6mlURU4 aKThDVngAPM4T91zv7Y5 RWWaYRAlYHE5hLU9hY6s yVavqhhcC7TquTMkJjX5 JAZ1kPYnaJ0ljZyx vxflfM6dSjg+F57YLY4L BRPEAK2DTvb4O5RwOovt dHI+TM16FZZoZZ71iCCe pDMim3ctnAp8LkFk HLUtOTR9uHzxZTybq5Km ICMgS68hzNCjx7U9BNZd fZckfDCvZxGrzKR2uO0j WAgbhcsoj5adwpzs Dgygz6kpgj45kH51C36t TZgcUKUoJJF6TUMsJFAe oDfmjl3uwO7iJq4+IDxj b9lji1bfzVl2EqHs FNMxxvJtoYteDDP3d8Zw Xy58B3JgyEnxn9KbAmt7 fk06eILim8X3kTJ8REbq DQLcdT8hYLamKvA8 TVBdCgQogR38lARkAVxr Tc1gxBhpjEzwNV2bOBKe evcrMQMucK5xITFvvUEb vMeoPQ6rPDNqdxvr l477DvOhQFV3XSMycVDr G8EjlL3uHwLuMKEyEHNi I0KqqMKoUCxpM891OLfe ByA6VCZgzyRgX8Pd ADOnsMhkCoP1q2V7Jn0K x3MaywcfMOD3ZEntVLW1 JeM8PqQlXwU1O2WlFry3 VVIlqEnzFX9oE7Nq HCWqwvskrmbfgVA8QAUr JFChsB40pTOfRUveXq7g r0J6i519YBFeXFInkA58 Xr3rfRjkJPNzfDZB nE5taqsyw5ezteurObVr IYJlTIj3SUu3NHQeyKmn NnXlHGF7OmN4ONS2pJNc nI9woDevzsacdJ9t Oyc+Z55kqE4tNXC9ILL1 kxzhVLSnyjHaIQ04KB57 L6GxObvvsANxpLP+PGRp evVanFcdVB2zIlTo q8khq0XoONutX0UtFZQz KBcqXfv1YJAsPMV3uYI9 pY4lRPIdLKazz0C1uPL1 H0FogaGhvh9pw9la WRFkSZhbU66vdJYsu8J8 KORkfPP6NQMqjFdeDlDe mG08Wum+ADQfhLxfs7Ej Hedig1rus5ohgFw3 IjMwJSIgdmFsaWduPSJ0 w1WrNl50P22nKYroBLAx CNSbXQCzYNAehQlnnu6k nV6rYy4+PGNvbCB3 oTA1kG4gUQBvMsO7ULka C297IbVasLAeOuucw2uv h6nwpCy0MeEnPQZxwbDh jVynCAB5p1DxWp06 Z64oLEpgKPRiFOSvLPZq HBSulCfktb3brZ5gCp3+ IC2kw3syho81qB73mLM+ HXHgSHQ5eFypOGqq ZOJesU4iDVohHuG6TKOi YoVgzN43yWHwPZnmXs0g mFkcuQpoYH4fCGFauliu i845RhAtz6dvWRTu wBShEZyzJQW7H09ls9N2 UQVlTKLkEUG8wUE7aQ0j bGlnbjogbGVmdDsgdmVy uMazONjxXCumM984 IHRvcDsnPlBhdGllbnQg ZpHnEMe8S1HrNqn5TCEr gLkdYH4uePCnPTsvPf9k jEsqaPhgAF8hAQTi sxhzs824DkXlc3enJZMu lQTdVLvuPIK5K46yn3L7 XLQrZYBlHCM1gNJ7sM6z bGlnbjogbGVmdDsg qcDdlYuhCHayPImvZ788 IHRvcDsnPkJpcnRoIERh pLC8SO82VQ98uQRlo3K9 sIQ2X2UgRDWvrcqq sgratYO4MAGpTSOadJ56 Pc4dvYfzJg9nMKKmOCM8 EPSzrLYgG8NzkM9qCuLl ADYbPKLoP0ItoQSb QArzT250ZOzfPaI2BXIu gfKzV2KkIZKpzRniBtH1 n7U0Fn4IU3W3BV08WB25 sFVod8F1wRK4G3Zx GFPmhpbfacxznZZ8GXAz DHEniK83Xd3wnLteUw9l POPqIFK3TRZwpFNoW7Mn eN0yNdYvCDGoPBJs W1KywHYyKLibK739MTyv SlP9UWUuokNxZ2YjHURh dLmmZkD0h2E0Xc9HPBo7 HU05OG85bTLaw7L2 gGL2T4NeJVBclstgvmeq oUS0SLXjQCFdeC40Da6k dDpjMl5hHNOtNBT7OFJq lQTpQ7WgqK2qKlKa KMLiMUBhE9HysSUbNInc N240JJfmExD6NBBplzMy J0AiSKRkgFqrLfA8y2R4 Dj9SLZBuLU22ANY9 lGJ2MK72WR92V4TkPilb dGFibGU+PHRhYmxlIHdp ZHRoPScxMDAlJyBzdHls KO1gAm9mYKNrOPDa eJsyfVTlEhDrt5dyLWXr QKtxOE2jzAquM2McaHC9 BUYve1r3Hv48Z18pO1El dXA+VNArvEQ6oEC6 cL1lIpQuTlR0RYmmM434 EsNnyCKoRkwaq7jlc0ce bOt4XzA4RRZyasLkzHum DQD8l9AbLn92K05e IHdpZHRoPSIxNSUiIHZh uMenkc3ulX7dYq6+PGNv zMM4cXN5pK1tAiCjMdC4 IMwkM080JvDteGCb Mdufd6brl8lcfLp1JtSm CCPutvNoqCclXSG5c8Gj Br50Z1DskYtxb9LeOuk7 yc59jVEbt1O0dXH9 F5QgAGGxdgpcdCMvvByn AP2oFWRpovotJNPynS7f DGInE8x1HpTtVmX8QVor Y2RparD1HVZuxYDb ZBepOSW9W43ex6E5UZSa UDEjZPO6aWP9rP8jaCln bjogbGVmdDsgdmVydGlj ESfqNEkjA915SSDf wYfsDWQvlO4aJZWqeDTe fTaoSC1vLLEfpgsxJzOV HAORAEGWOz9BUCBUXX22 Y1EuKfo8HCJtuKll DM9kvRXdETeyKm5hzPim oBfmHM0hXGFqrrceFTVm bQ8uCWQljZZqmHuzJU6r TCRaeubfz170JzKq ZYG3UZWxySJaL8FyrG8e IiYbTTJlTAShD3EhiARn GSzeD855KBhlZpR7TGFg roYaZ0NpDNHehPtz YyF5l0G1Wa7nHN4fIm7a GBH7JS81EU67qZExf0S6 pHF7Z0UkCZHonlvahtzs mIJ2RCHdLDOzxW68 fUSfTRgkWy2tv2I0i855 CROlHHOiyG47Cn5pzZej DIIavPVMkM5gzyjtw5os cjogIzAwMDAwMDt0 MJh4OAAtrCrnDfUoCKN4 FsU5RHC2mOZlaZ5enHiu zqygkK8zAqq+NjIgWWVh edY0D8McLwf8ZAKe eSdcZG3ubKCjXCcfEc1d zPbrwAelTP3bFYErvmyp MDHvpD3bXJUmjURmnIpu VJ8xLQQbqyzgy168 KmTcOUH7NESyiCKuS2Su hH9aRaLmIFBbAEPbO7Ud iSIuKRlvF575RNisWbP6 QTBwjdJeF9WdQRPv jWojFwL8k6T8Nu7VEM2w oCN1K6XdAed7XLSeaFnp UA5rhQCzERvmZe1naLpv gJtgDP4tIKLmhzsi UXPeoV7aBWThjQRidRrh JZ7xMEOpqgcmu968CyRi KKC9PSSihJCgH6YkwR4e VaEtIGFzMDQzG6Vx gYDhKUjvF073ISpjJwT3 ZOUitqYfZ5YtNOMkrWqm CrV4i4U1Tn2MORUpGSAn oNCdJmA7M3WbKmro dHI+DM62LWEuAZ94wVEa eOKar7mlwCu6ExDbVLTf ITY3xUeaDJyez3EeUDWw Y56duXGhl8L8BEMn oHdiuPIgIfXpaYW0iE2f XXgfkiopt2bfcqanAjzk l5qepg87uQ81R67eKXan ZHRoPSIzMCUiIHZh aTelyc8bnP6kRu7+PGNv hEO0zDQ3oN2sOtIgQuO1 JTrbO764QeOwxLGiSiqw m7qgs8vyuQd8FoMo GESopzBmsAwsIQV7a2Gc Yc22F34aMFwrOUTiWXTp FBScVFUxzIsmrx0nnO7b Ii8+LH3cn0wiel77 kP48nLJ+FYHlCEW4fHam LNokMYIhuE1zNUszJeB9 FSKgNgQwlI52iYTuNQre Hz4emZvdyYrjFP0d PJDzslsce609LeZdf1ok RQVbcIAoYKcdZNJ3P10j d8S5MCQkPPBlKII2aYC4 bJ6uxMurtzlqcCXi dDsgdmVydGljYWwtYWxp F191TTZnjRxqCbDdiUBt P6jfswGSNB5xGbvxiEQ+ YVVcBMG1aXvzYGfd GFCptD2uZHChW5j8NyQh MbQ9XFsoI6BacqI1AGDc bJIpZMGifARVpE7sdawk i4lexpvyXbMoEYCh SNw7HWc0FNZtvCylFmZb CYF9ZsL1DGR4xDHrxD5h vHlxubcffD4vNkl+RklO OjwvdGQ+PHRkIHN0 qLtjCFqvLDJnvL2qUXFp G5f3SfPxZuK5JJayK3Lx tyM9KNSwtXZwGVEvnXUV bT0oopnzy7lnqzbx HiCzAEFqEGr6PTl5OTOi hImeEqPuPGA0VeH4KJP2 yZJxtM7iiYctckjjdL4c Oyc+TVJOOjwvdGQ+ EXDuBMH1oVioONjtLXXz lK6hTRQhY3s4SwMeZgL2 ZQrdS2TsygK5GLTzxSZz OCOhjASWgP8kdabp m5rmhavtAnSmXCRfGDk0 JGz0KVLttDowUbDzWFP3 TjO3GAV2iMDsjG3axKvg yllbqL6fBmh+UGF5 HRV5AU40TK39T6OpZmhw dGFibGU+PHRhYmxlIHdp ZHRoPScxMDAlJyBzdHls JH4cDb9oQBTqLWXq bGxh (more content not included)... Normal [facility] Pathology Noteon 11-17-2020 Pathology Note [id number]#[id number]:127 Normal [facility] Reference Lab Reporton 11-17 Reference Lab Report [id number] 7#[id number]:127 Normal [facility] Patient Educationon 11-17-19 Patient Education Urology Hematuria, Adult Hematuria is blood in the urine. Blood may be visible in the urine, or it may be identified with a test. This condition can be caused by infections of the bladder, urethra, kidney, or prostate. Other possible causes include: ? Kidney stones. ? Cancer of the urinary tract. ? Too much calcium in the urine. ? Conditions that are passed from parent to child (inherited conditions). ? Exercise that requires a lot of energy. Infections can usually be treated with medicine, and a kidney stone usually will pass through your urine. If neither of these is the cause of your hematuria, more tests may be needed to identify the cause of your symptoms. It is very important to tell your health care provider about any blood in your urine, even if it is painless or the blood stops without treatment. Blood in the urine, when it happens and then stops and then happens again, can be a symptom of a very serious condition, including cancer. There is no pain in the initial stages of many urinary cancers. Follow these instructions at home: Medicines ? Take xooq-cdm-erryqqc and prescription medicines only as told by your health care provider. ? If you were prescribed an antibiotic medicine, take it as told by your health care provider. Do not stop taking the antibiotic even if you start to feel better. Eating and drinking ? Drink enough fluid to keep your urine clear or pale yellow. It is recommended that you drink 3?4 quarts (2.8?3.8 L) a day. If you have been diagnosed with an infection, it is recommended that you drink cranberry juice in addition to large amounts of water. ? Avoid caffeine, tea, and carbonated beverages. These tend to irritate the bladder. ? Avoid alcohol because it may irritate the prostate (men). General instructions ? If you have been diagnosed with a kidney stone, follow your health care provider's instructions about straining your urine to catch the stone. ? Empty your bladder often. Avoid holding urine for long periods of time. ? If you are female: ? After a bowel movement, wipe from front to back and use each piece of toilet paper only once. ? Empty your bladder before and after sex. ? Pay attention to any changes in your symptoms. Tell your health care provider about any changes or any new symptoms. ? It is your responsibility to get your test results. Ask your health care provider, or the department performing the test, when your results will be ready. ? Keep all follow-up visits as told by your health care provider. This is important. Contact a health care provider if: ? You develop back pain. ? You have a fever. ? You have nausea or vomiting. ? Your symptoms do not improve after 3 days. ? Your symptoms get worse. Get help right away if: ? You develop severe vomiting and are unable take medicine without vomiting. ? You develop severe pain in your back or abdomen even though you are taking medicine. ? You pass a large amount of blood in your urine. ? You pass blood clots in your urine. ? You feel very weak or like you might faint. ? You faint. Summary ? Hematuria is blood in the urine. It has many possible causes. ? It is very important that you tell your health care provider about any blood in your urine, even if it is painless or the blood stops without treatment. ? Take [id number] and prescription medicines only as told by your health care provider. ? Drink enough fluid to keep your urine clear or pale yellow. This information is not intended to replace advice given to you by your health care provider. Make sure you discuss any questions you have with your health care provider. Document Released: 04/23/2006 Document Revised: 09/17/2019 Document Reviewed: 05/26/2017 [employer] Patient Education ? 2019 [employer]. [facility]rology Office/Clinic Noteon 11-16-2020 Urology Office/Clinic Note Chief Complaint This is a 60 year old female here for a Cysto/cytology done HPI Staff Scope # ABX started. History of Present Illness I have reviewed and verified the staff HPI to be accurate for this encounter. Review of Systems ROS - Provider Constitutional: denies weight loss, denies hot flashes. Eyes: denies eye problems. Gastrointestinal: denies nausea, denies vomiting. Cardiovascular: denies chest pain or angina. Integumentary: no dryness Musculoskeletal: denies musculoskeletal symptoms. ENMT: denies otolaryngeal symptoms. Respiratory: no shortness of breath. Heme/Lymph: denies easy bleeding tendency, denies easy bruising tendency. Psychiatric: no confusion, no anxiety. Genitourinary: denies vaginal discharge, denies incontinence, denies dysuria, denies hematuria, denies urinary frequency, denies amenorrhea, denies menorrhagia, denies abnormal bleeding, denies pelvic pain, denies genital sores, and denies decreased libido. Physical Exam Vitals & Measurements HT: 163.0 cm HT: 163 cm WT: 65.0 kg WT: 65 kg BMI: 24.46 General Appearance: alert , no acute distress, well nourished, well developed female. Genitourinary: bladder nonpalpable, no flank pain. Procedure Operative Information Anesthesia Type: Local Procedure: Local Cystoscopy Complications: None Surgical risks, benefits, details of the procedure have been explained to the patient. Full informed consent has been obtained. Intraoperative Information Prepped: Patient is brought back to the endoscopy suite. Patient is placed in modified dorso/lithotomy position. Patient prepped in the usual fashion with Betadine solution. 2% Xylocaine Jelly is placed per Urethra. After waiting several minutes, the Cystoscope is introduced. The Urethra is: Normal The Bladder: no tumors or stones, no dolly, no prolapse, mild a.v. The Ureteral orifices: Show efflux of clear urine Removal: Cystoscope is removed. The patient tolerated it well. Postoperative Information Patient is discharged home with antibiotic coverage. Follow up arranged. Assessment/Plan 1. Microscopic hematuria (R31.29: Other microscopic hematuria) Cysto done IO today w/ no complications. Negative UroVysion done 10/26/20. No concerns on CT done 10/30/20 or renal us 11/12/20. All questions/concerns were discussed. Pt. to call the office if sheencounters any issues prior. Pt. acknowledges understanding. 2. History of kidney stones (Z87.442: Personal history of urinary calculi) Lithotripsy done in the past. 3. CKD (chronic kidney disease), stage III (N18.30: Chronic kidney disease, stage 3 unspecified) Managed by Dr. Woodard. I have reviewed the previous health record information and history for this pt. from Dr. Fu. Follow-up With When Contact Information ERIK BLAKE, Ilya Chance, [address] [place] [address]- [phone] Additional Instructions: f/u prn Patient Education Hematuria, Adult I, Allie Casey , personally scribed for Dr. Fu on 11/16/2020 16:10:35. . Documentation recorded by the scribe, Allie Casey, accurately reflects the services(s) I performed and decisions made by me. Authenticated by Dr. Fu on 11/16/2020 16:16:29. Problem List/Past Medical History Ongoing CKD (chronic kidney disease) Epigastric pain Essential hypertension GERD (gastroesophageal reflux disease) Hypertension Kidney stone Peptic ulcer disease Smoker Vitamin D deficiency Historical No qualifying data Procedure/Surgical History Cystoscope (11/16/2020), CE - Cataract extraction, Colonoscopy, Lumpectomy of left breast. Medications amLODIPine 5 mg Tab, Oral, Daily cetirizine 10 mg oral capsule, 10 mg= 1 cap(s), Oral, Daily, PRN Dosoquin Folinic-Plus, Oral, Daily lisinopril 40 mg Tab, Oral, Daily melatonin 3 mg oral tablet, extended release, 3 mg= 1 tab(s), Oral, Once a day (at bedtime), PRN Pantoprazole [address] Tab, Oral, Daily propranolol 80 mg Cap-ER, Oral, Daily Allergies No Known Allergies Social History Alcohol - Low Risk, 10/22/2020 Tobacco Smoker, current status unknown Tobacco Use:. Cigarettes, Yes, 11/16/2020 Family History Diabetes clinic: Father. Emphysema: Father. Heart disease: Father. Immunizations Vaccine Date Status SARS-CoV-2 (COVID-19) mRNA-1273 vaccine 09/01/2020 Recorded SARS-CoV-2 (COVID-19) mRNA-1273 vaccine 08/04/2020 Recorded influenza virus vaccine, inactivated 02/23/2020 Recorded Normal [facility] Comment on above: Result Comment: Elec tronically Signed By: Ilya FU MD\.br\Date and Time Signed: 11/16/20 16:16 EDT\.br\Electronically Co-Signed By: Allie Casey MA\.br\Date and Time Co-Signed: 11/16/20 16:11 EDT RAD - Ultrasound Reporton RAD - Ultrasound Report [id number] #1.00CD:127 Normal [facility] Lab Reportson 11-09-2020 Lab Reports [id number] #1.00CD:127 Normal [facility] Reminderson 11-05-2020 Reminders - From: Jessi Jones To: EU - Clinical; Sent: 10/22/2020 11:37:30 EDT Show up: 11/05/2020 11:37:00 EDT Subject: urine cytology Reminder/Recall urine cytology The first urine specimen was taken by the wood and hardware outfitter on Sunday the and left in a bag so it was no good for Cytology. Pt is resubmitting a specimen today the and it will be sent for FISH and Cytology. fish and cytology were negative. Normal [facility] Lab Miscellaneous-LCon 11-04 Lab Miscellaneous COMMENT Invalid Interpretation Code [facility] Comment on above: Result Comment: Test Ordered: [id number] Bladder Cancer FISH, Review Bladder Cancer FISH Findings: Comment 4_ Negative UroVysion Result Fluorescence in situ hybridization (FISH) of cells recovered from urine was performed using the [employer] UroVysion Kit. A minimum of twenty-five cells was examined, and an abnormal signal pattern was not detected, indicating a NEGATIVE result. The performance characteristics of this test have been validated by [employer]. A positive result is the detection of four or more cells with greater than two signals for at least two chromosomes (3, and/or 7, and/or 17) and/or twelve or more cells with no signal for chromosome 9. Probes: 3cen(D3Z1), 7cen(D7Z1), 9p21(p16), 17cen(D17Z1) Specimen Type: Comment 4_ Unspecified Collection Method Specimen Description: Comment 4_ Received is 75ml of yellow, cloudy, preserved urine. Electronically signed: Comment 4_ Luis Eduardo Claudio M.D. Clinical Data: Comment 4_ No clinical data specified CPT Codes: Comment 4_ 35000 Performed at: [address], [place] [id number] PhD Pranav Hall Performed By: #### 1 [id number] ####[facility] [address] [facility]fl[facility] [place] [address] RAD - CT Reporton 11-03-[address] RAD - CT Report [id number] #1.00CD:127 Normal [facility] RAD - CT Report [id number] #1.00CD:127 Normal [facility] Coding Summary.on 11-02-2020 Coding Summary. CD:[id number] Gh0bWw+PGhlYWQ+PE1FV RObL21yoADwmX6ZL8cQW B6QNGJMKVLQSP8CCW4is EV8VWukJ4UnddPi WajbaYQuPB50GOu5ORV7 qSzdFRieaL1slAPwV2p2 SqHrIW62yK90YAfaQOGs LpJ9CaEgxigfuIUy B2rtCgXnrHEcUmf+PHRh YmxlIHdpZHRoPScxMDAl JcTmaKdrGW0aDm1cIIHm LWNvbGxhcHNlOiBj t8wvAXDlZTdiBY3ihFqk B4GhaHI5KVDnd2u7Mq94 dHI+OYGuODS5nOlwOJbr t526RsTdk1juBHK8 tUVpCKjqGWK8D71az4O2 IQKwSRJaMYW8uAO0vW3h mXdeodqiT9XluQSsNmI8 NIA1rHOmgC1bbQdf dxainC1eScd+X99LEN9V GTSNBE7SBrb8D0FcBkzl dHI+NV76AMPnEK34oCKi aTIya8pwuDw0RiWy OORpTEB3dXorKRovz8Ep CSUtN64eyAYrb9I9YEZc aXxeaFHoVjQttCO6hD9i WAdubzjhx3bghxeh Kgatp5hdtg51iB22Q31p QRvnKGUaZFN4ZLJoOCMy uAveyy9fcA0yYm8+IDxj s6slv9ivaZe4SdWf FQPgnyAxhVblUNG3p4Yc Lx91A9UjvNnkw6UgRuq4 ic57yMAkk2D2cFJ0XFxa WMKalW3hHMagVxN8 LLTwOpAgtR29gICnLBoy Up2yvBmzlVzzZT2hZLDz nqugBWXlqB5wWOYgbYTg rRppNS2fKWAtnulv h702IwGaQMA2PUGhzMZg P0LxkY5yCdLpTGIhBLJs I1YleHUfGYkwK347VBdy SvA1LQMybdAiM7Cl AQYtdYsoFzC6p6X5Sq5V i6FzjhqaNJL7NYztFYD6 MbH2FfFjAbZ6U7HvDvs0 SMAhkIgxUP0cE2Sv RPIidhfwmcxotEJ1EJUn WWHrdA72oHWuXBghZv0l f6M9r078UHRmJGJzaP05 Bd6ycUweLTEjoEYV mO9eushhr3tcplvsCpPx HXZeWZb8PEr7IUZlnTzw WnCpVLM0QrH1YTU6zQJl rZ6jaNvxpqqgoJ3q Oyc+F59giB4nKHF5LXW1 otcqUIGltyTkNB08SQ07 I1NxMxvljIEglAC+PGRp qkVxuZbrNO8tFlSd y9slv4UrIZlfV6SaHOMs SEucCrm8VSVlRVK0nCP7 fN9hAIVmIVnby4J1yPX9 D6KjsuXzki1wd4ca OGNfXAygV32cqSUco9Q2 OVQcxIY1FRFcqUhdKnQn xZ54Fsg+IWUxaXyvm7Tk Rssxd1woy2xptRd9 IjMwJSIgdmFsaWduPSJ0 b0VrHv57Q35uCBtaEXIh HMSaORDaYKHiiZucaf0z zE3tBl5+PGNvbCB3 nGR2fF1eUUAsGtE5MBdo C883IzJlyKJsVvlph3tz i8pwdXe7ClJhEHEwavEw oLxlJFK9r8SnVf75 M96eDDvwIZOxGFLaIPZc JALhgSemsp4pnB8nSt2+ DA9qd7yshj57lL82qEW+ KWInBKV5dFbvAErm BERxcN6qSIbgSnE2ZIOy EkLxiA48oIZsVNipLt6b kCpxdWycYW4dNWVbsvhz u896CrZjq4goFOQm kGUpUUovDWU3A06lu4T0 EPUsWHZkROL1aWH3dD4h bGlnbjogbGVmdDsgdmVy jBtaPVigMAgaJ863 IHRvcDsnPlBhdGllbnQg AaBoFVs9S0RaBdc4BINg kWjrKD4arQSySKnxRw6a nVuoxXavBB1oQKKf nuepq696WlZte2bkOXUg kUXiCFgoDSE5B68cz7R6 AZEcPMCsHVA4sJG5dJ2k bGlnbjogbGVmdDsg ecCimMrnRMbdVNtnZ578 IHRvcDsnPkJpcnRoIERh wWB4AS97RV87sCVyl5B4 tST9O0AeVBBlysua onlktTA7ZRDoWEXntX13 Wz2dyAhkAr5gRCVqBEE3 BFXzjNFxZ3MvnZ1mVwRd JEPwMMVkL9IkdCCw DFneP318FAhkAuE2ASSg tcTeK4PxCJJccRxsQnT8 u3K7Ej0JL9F2GV28DL54 pTOrj4N3lWY0J8Wn QTRolsboxsqmwKO7PHMj JEAmaU24Bc2cvGtgYn8e HELoVQI2YMSelQAoC3Mx nT2nWpSrYIAmHUIw B2EjjDCfBFolN601QIvz DuR5YXGrpuZlN6UjWOVj zUfeEvQ1u5V5Up2DPDx9 MA64FS32tCEhb2T3 yTG4B1IvKYLaaphjkqmh sCC4UJVxIZXycC08Ad5g uOjgGm0hASRhANF1MVTs tKCeR4XxqH9jNsHi HXFtKNUkO8BmxALzNYbi G855GHwwPeG2CYQvbcEf A5VlLNPvbEdwIoG8c0K2 Um1NJENsUE94JZC6 qOK8FH97JP18Y6XeUprd dGFibGU+PHRhYmxlIHdp ZHRoPScxMDAlJyBzdHls BX7eZl2iKPEgBDJi jPwijZVpAkLnx5rcBAIv ZQkzQP1jaHnfH9QxlAQ1 VRCfd5w0Gc39M54yO0Zx dXA+RMCenWV9wRZ9 rG9qAzYlYbQ3OCklB090 YnUamDOqQbzjy5dlw2zx aQm8RzI2YZTwmjArnVbm HFW7w6NlTc37G37z IHdpZHRoPSIxNSUiIHZh aArhtx1faX3yVx1+PGNv eSR4aIY1lR8cOaIpGcE1 AYwmX547SsQslRQo Xxloj7yoz5dcyKp0SoJe CQRcdvPhoNarCZN8b3Su Zh29N9FsrRtyj5QjKle7 mo25aLTrk1J2iSW9 Q5ScMAMievjtjSNunBih WC4sSFOflojyWZFbfP8i OGVfG7m6MpPyFbS0CYkm J1VvdrV1CQPmzDOo OIbfZCT5C77aw3Z6EHRd JNVhTDT8dYK4bZ4jpQkj bjogbGVmdDsgdmVydGlj HJltSCbmL259QAYo lHamSRYfsL1aPFWttOIr bXrqYT8hWTVfzyypSdPC CULADQNRRl5KAJMEAQ73 Q8JrGgo9KKMkpNwq AS3cbHAeIGfgUv1doNun tUhuSO6lEHHlictvEVQp rA0kBJGkkGOyqFuzSA9c CPFovljio610ZeIb YIA4IMTcuJEiX7EvtK6p LfRqWBBmDEXrW2EgdBDo CJcwP930MLzuAaG8DRHe wiDyU7EaKVPdhVgv FjU5s2I2Wa6cCD0eOs7r CSQ4BH30BY24hWGcr6Q7 dUR5F6CwFBCligdgguvh aXL9RCAgKBTsmT38 hOFqPOezIh8wi3E4u901 ZMQiFBZnuD98Dt7geBzz XQGfkFRWiD2wgkukl8jz cjogIzAwMDAwMDt0 CIk1EATkhTjwNnStNNN8 WnB1TGO1iNZizP0orZpo eobfsC9uFet+NjIgWWVh xzA0J7KdKou3HCNj nOvaFC2pbZQsJSzjYs9n eGcfdPaiFQ7sSSMflhiv OQXpdY6qSAGqgMFkqVho YB1eESBkoeasi973 MrNoQGE6AEUxgDHuL3Hn nL8eBgUkEDBjWEVhJ4Me fHMkXVodH626FBfoYyS4 LOVqpeWfF8NyODEd xCsjMzB2j6L1Kz9JMS5x gDO5G8HrFwi6PMLgjLme YN8aiMTeZMfuYq3duZgu pVuzKD4yDBAkwprd MHYzmY4lEUCyzHDxkXmm AI9zFQYhkdzuu700TcSb RTO1ADGdmQSvA7LwpO9u EvJtPADkWRHfN3Lj eVScKRayC651NVmtFqO9 GZKepsVoX8RjOLEhaGyq OcI9r3B5Hj9KMYYmXVNw fTDpIgK7S0BcMnxh dHI+CV78ZDZrGR96tBMd zOTar3eheBw4IlUdGTRb RWY8vCbbXRwjk9UiVZKh O19jkTHdu8F2JCGc gWbkvNQdUiRtpXO1hF0k PBmoguuke6oekwnyPfsw v7qrbm34yO62A21zMJja ZHRoPSIzMCUiIHZh yVwabm6arM6dCs0+PGNv uXH8mWV7vB5cFeDfXiS4 JEpeK587IsLgvSNnWwep e1ifp3kvsMt2ExWd CWZabtYegQzuCSL4k0Gg Wm46P37sKGlaBKLdKFOh DXQaFFVgrLsclt9goQ1y Ii8+CM1gv4kxcb30 tO75hYY+WRJnDRF5gZka ETcbYCJvxI2pKMefVaB6 WKNdXvHszY94uKBrKMfq Rf8dtGfdoSjvQQ2p VQNkskrbz744ThCbt9ey OYEycIVmJNfoWGO4L10b n1L6QTIfBDOfWBB2wEX8 gO7lwIucssziiGZd dDsgdmVydGljYWwtYWxp G495BACoaCqeWhGrkGEm E4weidRLZV4rCghqiXW+ GUWbVWT8oIlbGUua KZUilD9iKGGtB2b9XeWb BeJ4OEgoR2YqjjW6PXEz oXBtQHNwgHKZiU7jvslx d7wvcvryPaRqYXQu DFd2AFn9LKIawRpmAxNo NEB3KfJ7BNQ2tPUrmQ3n jIzstfggyG8dEoy+RklO OjwvdGQ+PHRkIHN0 mTdwYZshSZFcgQ0oFBVg R2n5PpVwEgZ9UPgvU3Gl ldQ6ZPNgaFHgNVSvcSTS pG2aazrpn4sfcqiz YdLcFDOkAEq2DHo9KGMm fUqfAaOsOKN2SiB2BQG9 qSEnkW9dvKgolwhlcH5p Oyc+TVJOOjwvdGQ+ IJQsANL7iEztKNqpXBNv mZ8zJUSbW9r5ZxRfVvA4 MMdxM7XthzF7RETptPXk LPEfgRCCgC5udskn e6gdhvjyWjSiXCDlHSn1 PVk1NGPnkSniNuKpKCQ9 FzR7CTY1gFBqfA3oiRqf fzgnxZ0vNmo+UGF5 JRE0QL56EC76L5RkHihi dGFibGU+PHRhYmxlIHdp ZHRoPScxMDAlJyBzdHls GI1lUz2yIBCnFCZu bGxh (more content not included)... Normal [facility] Reminderson 11-01-2020 Reminders - From: Andreea Prado To: EU - Clinical; Sent: 10/22/2020 11:41:48 EDT Show up: 10/29/2020 11:41:00 EDT Subject: ct scan Due Date/Time: 11/09/2020 11:41:00 EDT Reminder/Recall Order faxed to Vangie Bullock for Ct scan to be scheduled after auth approval Pt sched for 11/16/20 for Cysto, will review results at this appt Pt scheduled for CT @ [facility] on 10/30/20. CT [facility] and scanned into patient's chart. Normal [facility] Reminderson 10-28-2020 Reminders - From: Jessi Jones To: EU - Clinical; Sent: 10/22/2020 11:43:37 EDT Show up: 10/25/2020 11:43:00 EDT Subject: Urine culture Reminder/Recall Urine culture C&S is not finalized, still in prelims. Will check at the end of the day today. Urine culture positive. Message sent to PRW to review [facility] C Urineon 10-27-2020 Bacteria identified Cx Nom (U) Microbiology PROCEDURE: Urine Culture [R1] SOURCE: U Random BODY SITE: COLLECTED DATE/TIME: 10/22/2020 11:40 EDT RECEIVED DATE/TIME: 10/25/2020 14:20 EDT START DATE/TIME: 10/25/2020 14:20 EDT FREE TEXT SOURCE: ERIK BLAKE, Ilya FU MD, Ilya Chance FINAL REPORTS Final Report [] Verified Date/Time: 10/27/2020 13:22 EDT >100,000 cfu/ml Enterococcus faecalis SUSCEPTIBILITY RESULTS LEGEND: S=Susceptible, N/R=Not Reported, Blank=Data not available, or drug not advisable or tested, I=Intermediate, ESBL=Extended spectrum beta-lactamase, R=Resistant, TFG=Thymidine-depend ent strain, MARC=Beta-lactamase positive, JUN=mcg/m;(mg/L), S*=Predicted susceptible interp, R*=Predicted resistant interp [employer] Antibiotic JUN Dilutn JUN Interp Ampicillin <=2 S Ciprofloxacin <=1 S Daptomycin 4 S Levofloxacin <=1 S Linezolid <=2 S Nitrofurantoin <=32 S Penicillin 2 S Rifampin <=1 S Tetracycline >8 R Vancomycin 2 S Performing Locations R1: This test was performed at: [facility], [address] [place] [address], [address] , [place], Normal [facility] Comment on above: Performed By: #### 2 [id number] ####[address] [address] Ambulatory Clinical Summaryo 10-26-2020 Ambulatory Clinical Summary {[id number]}CD:[id number] Normal [facility] Lab Miscellaneous-LCon 10-26 Test Code 039300 Invalid Interpretation Code [facility] Comment on above: Performed By: #### 1 [id number] ####[address] [address] Test Name Fish Invalid Interpretation Code [facility] Comment on above: Performed By: #### 1 [id number] ####[address] [address] Reminderson 10-26-2020 Reminders - From: Amina Gifford MA To: EU - Clinical; Sent: 10/26/2020 11:32:36 EDT Show up: 11/05/2020 11:32:00 EDT Subject: FISH/CYtology Reminder/Recall FISH/CYTOLOGY Normal [facility] Ambulatory Clinical Summaryo n 10-22-2020 Ambulatory Clinical Summary {[id number]}CD:[id number] Normal [facility] Patient Educationon 10-23-19 21 Patient Education Urology Hematuria, Adult Hematuria is blood in the urine. Blood may be visible in the urine, or it may be identified with a test. This condition can be caused by infections of the bladder, urethra, kidney, or prostate. Other possible causes include: ? Kidney stones. ? Cancer of the urinary tract. ? Too much calcium in the urine. ? Conditions that are passed from parent to child (inherited conditions). ? Exercise that requires a lot of energy. Infections can usually be treated with medicine, and a kidney stone usually will pass through your urine. If neither of these is the cause of your hematuria, more tests may be needed to identify the cause of your symptoms. It is very important to tell your health care provider about any blood in your urine, even if it is painless or the blood stops without treatment. Blood in the urine, when it happens and then stops and then happens again, can be a symptom of a very serious condition, including cancer. There is no pain in the initial stages of many urinary cancers. Follow these instructions at home: Medicines ? Take wqxo-bng-djhfmul and prescription medicines only as told by your health care provider. ? If you were prescribed an antibiotic medicine, take it as told by your health care provider. Do not stop taking the antibiotic even if you start to feel better. Eating and drinking ? Drink enough fluid to keep your urine clear or pale yellow. It is recommended that you drink 3?4 quarts (2.8?3.8 L) a day. If you have been diagnosed with an infection, it is recommended that you drink cranberry juice in addition to large amounts of water. ? Avoid caffeine, tea, and carbonated beverages. These tend to irritate the bladder. ? Avoid alcohol because it may irritate the prostate (men). General instructions ? If you have been diagnosed with a kidney stone, follow your health care provider's instructions about straining your urine to catch the stone. ? Empty your bladder often. Avoid holding urine for long periods of time. ? If you are female: ? After a bowel movement, wipe from front to back and use each piece of toilet paper only once. ? Empty your bladder before and after sex. ? Pay attention to any changes in your symptoms. Tell your health care provider about any changes or any new symptoms. ? It is your responsibility to get your test results. Ask your health care provider, or the department performing the test, when your results will be ready. ? Keep all follow-up visits as told by your health care provider. This is important. Contact a health care provider if: ? You develop back pain. ? You have a fever. ? You have nausea or vomiting. ? Your symptoms do not improve after 3 days. ? Your symptoms get worse. Get help right away if: ? You develop severe vomiting and are unable take medicine without vomiting. ? You develop severe pain in your back or abdomen even though you are taking medicine. ? You pass a large amount of blood in your urine. ? You pass blood clots in your urine. ? You feel very weak or like you might faint. ? You faint. Summary ? Hematuria is blood in the urine. It has many possible causes. ? It is very important that you tell your health care provider about any blood in your urine, even if it is painless or the blood stops without treatment. ? Take dmzr-cfl-uggjgng and prescription medicines only as told by your health care provider. ? Drink enough fluid to keep your urine clear or pale yellow. This information is not intended to replace advice given to you by your health care provider. Make sure you discuss any questions you have with your health care provider. Document Released: 04/23/2006 Document Revised: 09/17/2019 Document Reviewed: 05/26/2017 [employer] Patient Education ? 2019 [employer]. Normal [facility] Physician Referralon 021 Physician Referral [id number]# 1.00CD:127 Normal [facility] US renal BIon 07-28-2020 US renal BI [place] [address] Ultrasound Report Signed Patient: Sury Shoemaker MR#: [id number] : 1960 Acct:[id number] Age/Sex: 59 / F ADM Date: 07/28/20 Loc: [facility] Room: Type: [facility] Attending Dr: Canelo Woodard MD Ordering Provider: Canelo Woodard MD Date of Service: 07/28/20 US/US renal BI: Chronic kidney disease, stage III (moderate);Christian teixeira w cr Copies to: Canelo Woodard MD Bilateral renal ultrasound HISTORY: Chronic kidney disease COMPARISON:None RIGHT kidney measures 8.2 x 4.2 x 5.2 cm. LEFT kidney measures 8.6 x 5.3 x 4.9 cm. No hydronephrosis identified. No shadowing renal calculus is seen. No renal lesion identified. The volume of urinary bladder is 311 cc. Post residual is 5 mL. US/US renal BI IMPRESSION: No hydronephrosis. Impression dictated by: Kaushal Clemente M.D.07/28/2020 2:00 PM Dictation Location: [place] [address] Tech: Eveilna Jose Alfredo Transcribed By: [facility] 07/28/20 1400 Dictated By: Kaushal Clemente DO 07/28/20 1359 Signed By: 07/28/20 1400 [facility] Vital Signs Date Time Vital Sign Value Performing Clinician Facility 07-23-2023 10:48-0400 Body height 162.6 cm Kim LOPEZ Work Phone: [facility] [employer] 07-23-2023 10:48-0400 Body mass index (BMI) [Ratio] 26.78 kg/m2 Kim LOPEZ Work Phone: [facility] [employer] 07-23-2023 10:48-0400 Body weight 70.76 kg [facility] 07-23-2023 10:48-0400 Diastolic blood pressure 64 mm[Hg] Kim LOPEZ Work Phone: [facility] [employer] 07-23-2023 10:48-0400 Heart rate 78 /min Kim LOPEZ Work Phone: [facility] [employer] 07-23-2023 10:48-0400 SaO2% (BldA) [Mass fraction] 97 % [facility] 07-23-2023 10:48-0400 Systolic blood pressure 120 mm[Hg] [facility]Z [facility] 10-05-2022 11:00-0400 Body height 162.56 cm Canelo Rob Other [employer] Other 10-05-2022 11:00-0400 Body mass index (BMI) [Ratio] 27.39 kg/m2 Canelo Rob Other [employer] Other 10-05-2022 11:00-0400 Body temperature 98 [degF] Canelo Rob Other [employer] Other 10-05-2022 11:00-0400 Body weight 72.39 kg Canelo Rob Other [employer] Other 10-05-2022 11:00-0400 Diastolic blood pressure 80 mm[Hg] Canelo Rob Other [employer] Other 10-05-2022 11:00-0400 Respiratory rate 18 /min Canelo Rob Other [employer] Other 10-05-2022 11:00-0400 SaO2% (BldA) [Mass fraction] 97 % Canelo Rob Other [facility] Other 10-05-2022 11:00-0400 Systolic blood pressure 137 mm[Hg] Canelo Rob Other [facility] Other 08-22-2022 15:15-0400 Body height 162.56 cm Angus Carl Other [facility] Other 08-22-2022 15:15-0400 Body mass index (BMI) [Ratio] 27.29 kg/m2 Angus Carl Other [facility] Other 08-22-2022 15:15-0400 Body weight 72.12 kg Angus Carl Other [facility] Other 08-22-2022 15:15-0400 Diastolic blood pressure 83 mm[Hg] Angus Siddhartha Other [facility] Other 08-22-2022 15:15-0400 Systolic blood pressure 130 mm[Hg] Angus Ambrosioormack Other [facility] Other 06-08-2022 14:00-0500 Body height 162.56 cm Libby Highault Other [facility] Other 06-08-2022 14:00-0500 Body mass index (BMI) [Ratio] 27.46 kg/m2 Libby Jose Other [facility] Other 06-08-2022 14:00-0500 Body temperature 98.3 [degF] Libby Jose Other [facility] Other 06-08-2022 14:00-0500 Body weight 72.58 kg Libby Highault Other [facility] Other 06-08-2022 14:00-0500 Diastolic blood pressure 77 mm[Hg] Libby Jose Other [facility] Other 06-08-2022 14:00-0500 Respiratory rate 18 /min Libby Jose Other [facility] Other 06-08-2022 14:00-0500 SaO2% (BldA) [Mass fraction] 98 % Libby Jose Other [facility] Other 06-08-2022 14:00-0500 Systolic blood pressure 147 mm[Hg] Libby Mcclure Other [facility] Other 03-16-2022 14:20-0500 Body height 162.56 cm Canelo Rob Other [facility] Other 03-16-2022 14:20-0500 Body mass index (BMI) [Ratio] 27.63 kg/m2 Canelo Rob Other [facility] Other 03-16-2022 14:20-0500 Body temperature 96.8 [degF] Canelo Rob Other [facility] Other 03-16-2022 14:20-0500 Body weight 73.03 kg Canelo Rob Other [facility] Other 03-16-2022 14:20-0500 Diastolic blood pressure 72 mm[Hg] Canelo Rob Other [facility] Other 03-16-2022 14:20-0500 Respiratory rate 16 /min Canelo Rob Other [facility] Other 03-16-2022 14:20-0500 SaO2% (BldA) [Mass fraction] 97 % Canelo Rbo Other [facility] Other 03-16-2022 14:20-0500 Systolic blood pressure 138 mm[Hg] Canelo Rob Other [facility] Other 08-18-2021 14:20-0400 Body height 162.56 cm Canelo Rob Other [facility] Other 08-18-2021 14:20-0400 Body mass index (BMI) [Ratio] 25.81 kg/m2 Canelo Rob Other [facility] Other 08-18-2021 14:20-0400 Body temperature 97.7 [degF] Canelo Rob Other [facility] Other 08-18-2021 14:20-0400 Body weight 68.22 kg Canelo Rob Other [facility] Other 08-18-2021 14:20-0400 Diastolic blood pressure 80 mm[Hg] Canelo Rob Other [facility] Other 08-18-2021 14:20-0400 Respiratory rate 18 /min Canelo Rob Other [facility] Other 08-18-2021 14:20-0400 SaO2% (BldA) [Mass fraction] 98 % Canelo Rob Other [facility] Other 08-18-2021 14:20-0400 Systolic blood pressure 139 mm[Hg] Canelo Rob Other [facility] Other Encounters Encounter Date Encounter Type Care Provider Facility Start: 03-11-2024 End: 03-11-2024 Orders Only Jovita Castillo MD Work Phone: [facility] Start: 02-20-2024 End: 02-20-2024 ambulatory JUAN MANUEL CASTELLANO [facility] Start: 01-28-2024 End: 01-28-2024 ambulatory JUWAN STRINGER [facility] Start: 08-02-2023 End: 08-06-2023 ambulatory KIM COLLIER [facility] Start: 08-01-2023 Refill Mischell Schlo sser OUTCOMES ANALYST-SHALLOT CLEANER [facility] Comment on above: Med Refill Start: 07-23-2023 End: 07-23-2023 Office outpatient visit 15 minutes Kim Collier OUTCOMES ANALYST-SHALLOT CLEANER Work Phone: [facility] Comment on above: Essential hypertensi on (Primary Dx); ST elevation myocardial infarction involving right coronary artery (CMS-HCC); Other hyperlipidemia; Tobacco abuse; ASCVD (arteriosclerotic cardiovascular disease); Dizziness Start: 07-23-2023 End: 07-23-2023 ambulatory [facility] Start: 07-20-2023 Telephone encounter Jessi Huffman CMA [facility] Start: 05-02-2023 Refill Mischell Schlo sser OUTCOMES ANALYST-SHALLOT CLEANER Work Phone: [facility] Comment on above: Med Refill Start: 10-05-2022 End: 10-05-2022 ambulatory Canelo Rob Other [facility] Other Start: 10-05-2022 Office outpatient vi sit 25 minutes Canelo Rob [facility] Start: 09-26-2022 End: 09-27-2022 ambulatory CANELO ROB Facility: Start: 08-22-2022 End: 08-22-2022 ambulatory Angus Carl Other [facility] Other Start: 08-22-2022 Office outpatient vi sit 25 minutes Angus Carl [facility] Start: 06-26-2022 End: 06-26-2022 ambulatory Libby Mcclure Other [facility] Other Start: 06-26-2022 Telephone encounter Libby paul [facility] Start: 06-08-2022 End: 06-08-2022 ambulatory Libby Mcclure Other [facility] Other Start: 06-08-2022 Office outpatient vi sit 25 minutes Libby Jose [facility] Start: 06-02-2022 End: 06-02-2022 ambulatory Libby Jose Other [facility] Other Start: 06-02-2022 Telephone encounter Libby Brenikky t [facility] Start: 05-17-2022 End: 05-17-2022 ambulatory Angus Siddhartha Other [facility] Other Start: 05-17-2022 Telephone encounter Angus Canas ck [facility] Start: 03-16-2022 End: 03-16-2022 ambulatory Canelo Rob Other [facility] Other Start: 03-16-2022 Office outpatient vi sit 15 minutes Canelo Rob [facility] Start: 03-02-2022 End: 03-03-2022 ambulatory CANELO ROB Facility: Start: 11-29-2021 End: 11-29-2021 ambulatory Libby Highault Other [facility] Other Start: 11-29-2021 Telephone encounter Libbyramona Burrelll t [facility] Start: 08-18-2021 End: 08-18-2021 ambulatory Canelo Rob Other [facility] Other Start: 08-18-2021 Office outpatient vi sit 25 minutes Canelo Rob [facility] Start: 06-06-2021 End: 06-06-2021 ambulatory Libby Jose Other [facility] Other Start: 06-06-2021 Telephone encounter Libby Bremohitl t [facility] Start: 05-20-2021 End: 05-20-2021 ambulatory Louis Hykes Other [facility] Other Start: 05-20-2021 Telephone encounter Louis Stanley [facility] Start: 04-06-2021 End: 04-06-2021 ambulatory Libby Mcclure Other [facility] Other Start: 04-06-2021 Telephone encounter Libby paul [facility] Start: 02-22-2021 Telephone encounter Libby paul [facility] Start: 02-13-2021 Telephone encounter Canelo Woodard [facility] Procedures Date Procedure Procedure Detail Performing Clinician Start: 07-23-2023 Follow-up visit Follow-up KIM COLLIER Plan of Treatment Date Care Activity Detail Author Start: 07-22-2024 Adult [facility] Start: 07-22-2024 Tobacco Screening Tobacco Screening [facility] [employer] [facility] Start: 01-25-2024 Adult BMI Screening [facility] Start: 01-25-2024 Tobacco Screening [facility]ening [facility] Start: 01-06-2024 Influenza vaccination [facility]e [facility] Start: 08-08-2023 Fall Risk Screening Fall [facility] Start: 08-02-2023 End: 08-02-2023 Patient encounter procedure [facility] Start: 07-23-2023 End: 07-22-2024 NM Heart Perfusion W adenosine and W radionuclide IV Nuc stress Lexiscan/Exercise Cardiac Services Routine ST elevation myocardial infarction involving right coronary artery ([facility]) ASCVD (arteriosclerotic cardiovascular disease) Dizziness Expected: 07/23/2023, Expires: 07/22/2024 [employer] Work Phone: Comment on above: Expected: 07/23/2023 , Expires: 07/22/2024 Start: 07-23-2023 End: 07-23-2023 Patient encounter procedure 07/23/2023 11:00 AM EDT Office Visit [facility] [address] [place] [address] Kim Collier, OUTCOMES ANALYST-SHALLOT CLEANER [address] [place] [address] [facility] Start: 01-05-2023 COVID-19 Vaccine ( season) COVID-19 Vaccine ( season) [facility] Start: 2008 Administration of varicella zoster vaccine Zoster (Shingles) Vaccine (1 of 2) [facility] Start: 08-08-1979 Screening for malign ant neoplasm of cervix Pap Smear [facility] Start: 1977 DTaP,Tdap and Td Vaccines (1 - Tdap) DTaP,Tdap and Td Vaccines (1 - Tdap) [facility] Start: 1976 Adult BMI Follow Up Plan Adult BMI F ollow Up Plan [facility] Start: 1970 Depression Screening Depression Scre ening [facility] Immunizations Immunization Date Immunization Notes Care Provider Fa cility 02-06-2023 influenza virus vaccine, unspecified formulation Mischell Lety OUTCOMES ANALYST-SHALLOT CLEANER Work Phone: [facility] 02-11-2021 influenza, injectabl e, quadrivalent, preservative free Mischell Lety OUTCOMES ANALYST-SHALLOT CLEANER Work Phone: [facility] 01-23-2020 influenza, seasonal, injectable Canelo Rob Other [facility] Other 02-04-2019 influenza, injectabl e, quadrivalent, preservative free Canelo Rob Other [facility] Other Payers Date Payer Category Payer Medicare MEDICARE [id number] 2023 Medicare [id number] 2023 () FOR [facility] [id number] 2017 [employer] ( and others) [facility] [id number] 2017-Present [phone] [address] [place] [address] [id number] 2017 [employer] ( and others) [id number] 1959 [employer] ( and others) [id number] 1960 Unknown [id number] 1958 Unknown [id number] 1958 Unknown [id number] 1958 Unknown [id number] 1958 Unknown [id number] 1958 Unknown [id number] 1958 Unknown [id number] 1960 Unknown [id number] 1960 Unknown [id number] [employer] ( and others) [id number] Social History Date Type Detail Facility Unknown if ever smoked [facility] Other Start: 06-10-2020 End: 01-24-2023 Sex Assigned At [employer] Other Start: 01-24-2023 Tobacco smoking stat [facility]sm[facility] Start: 05-29-1991 End: 05-29-2021 History of tobacco use Current smoker [facility] Start: 05-29-1991 End: 05-29-2021 History of tobacco use Cigarette Smoker [facility] Start: 06-10-2020 End: 01-24-2023 Cigarettes smoked current (pack per day) - Reported 1 [facility] Start: 01-24-2023 Tobacco use and exposure Smokeless tobacco non-user [facility] Start: 01-24-2023 End: 07-23-2023 Alcohol intake Current drinker of alcohol (finding) [facility] Housing Instability Unknown [facility] Start: 06-21-2021 Alcohol Comment once in a while [facility] Start: 1960 Sex Assigned At Not on file P [facility] Start: 12-10-2014 Sex Female (finding) [facility] Medical Equipment Procedure Code Equipment Code Equipment Origin al Text Equipment Identifier Dates System Cor Stnt 3.5mm X 23mm 145cm Xience [employer] Luis A - [id number] [facility] Start: 05-26-2021 Clinical Notes 10-22-2020 to 07-23-2023 Kim K , OUTCOMES ANALYST-SHALLOT CLEANER - 07/23/2023 11:00 AM EDTPatient InstructionsTelephone Encounter - Jessi Armida, LAMP MECHANIC - 07/20/2023 12:47 PM EDT Note Date & Type Note Facility 07-23-2023 History of Presen t illness Narrative Sury Shoemaker Date of visit: 07/23/2023 Date of : 1960 Age: 62 y.o. Patient Active Problem List Diagnosis ST elevation myocardial infarction (STEMI) ([facility]) Other hyperlipidemia Essential hypertension Tobacco abuse No Known Allergies Current Outpatient Medications Medication Sig Dispense Refill aspirin 81 mg chewable tablet Chew 1 tablet (81 mg total) and swallow in the morning. 90 tablet 3 atorvastatin (LIPITOR) 40 mg tablet TAKE 1 TABLET BY MOUTH NIGHTLY 90 tablet 2 cetirizine (ZyrTEC) 10 mg tablet Take 1 tablet (10 mg total) by mouth in the morning. lisinopriL (PRINIVIL,ZESTRIL) 2.5 mg tablet TAKE 1 TABLET BY MOUTH EVERY MORNING 90 tablet 0 metoprolol succinate XL (TOPROL XL) 25 mg 24 hr tablet TAKE 1 TABLET BY MOUTH EVERY MORNING 90 tablet 3 nitroglycerin (NITROSTAT) 0.[address] 1 tablet (0.4 mg total) under the tongue every 5 (five) minutes as needed for chest pain. 90 tablet 1 pantoprazole (PROTONIX) 40 mg EC tablet Take 1 tablet (40 mg total) by mouth in the morning. No current facility-administered medications for this visit. Chief Complaint Patient presents with Follow-up EST PT F/U 6 MS L/S MAS LABS Junior T GARY History of Present Illness is a 62 yo F who presents to the office today for her 6 month follow up. She has a hx of CAD s/p stenting, HTN, HLD, and former tobacco use. In 2021, share presented as an acute inferior STEMI, resulting in RCA stenting. Her TTE in 2021 showed preserved LV function. She has been successful in smoking cessation. Lipid panel from 5 months prior has LDL 78, HDL 42. Today, she denies syncope, shortness of breath, chest pain. She has been having episodes of dizziness/vertigo the past few weeks. She had similar symptoms prior to her STEMI in 2021. Patient was seen when Dr. Hamilton was readily available in office. Past Medical History: Diagnosis Date Atherosclerotic heart disease of [place] coronary artery without angina pectoris Bradycardia Breast cancer ([facility]) Chronic kidney disease Chronic kidney disease, stage 3 ([facility]) Hypertension Other cardiomyopathies ([facility]) Other hyperlipidemia SOB (shortness of breath) STEMI (ST elevation myocardial infarction) ([facility]) 05/26/2021 STEMI (ST elevation myocardial infarction) ([facility]) Ventricular premature depolarization No data recorded No data recorded No data recorded Past Surgical History: Procedure Laterality Date . N/A 05/26/2021 Performed by Gustavo Sanchez MD at [facility] CARDIAC CATH LABS CARDIAC CATHETERIZATION 05/26/2021 Coronary angiogram and left ventricular gram/pressure N/A 05/26/2021 Performed by Gustavo Sanchez MD at [facility] CARDIAC CATH LABS ELBOW SURGERY LAMINECTOMY Revascularization occlusion with myocardial infarction drug eluting stent right coronary artery N/A 05/26/2021 Performed by Gustavo Sanchez MD at [facility] CARDIAC CATH LABS SHOULDER SURGERY TUBAL LIGATION Family History Problem Relation Age of Onset Cancer Mother Heart disease Father Social History Socioeconomic History Marital status: Spouse name: Not on file Number of children: Not on file Years of education: Not on file Highest education level: Not on file Occupational History Not on file Tobacco Use Smoking status: Former Packs/day: 1.00 Years: 30.00 Additional pack years: 0.00 Total pack years: 30.00 Types: Cigarettes Quit date: 05/29/2021 Years since quittin.1 Smokeless tobacco: Never Vaping Use Vaping Use: Never used Substance and Sexual Activity Alcohol use: Yes Comment: once in a while Drug use: Never Sexual activity: Defer Other Topics Concern Caffeine Use Yes Social History Narrative Not on file Social Determinants of Health Financial Resource Strain: Not on file Food Insecurity: No Food Insecurity (01/24/2023) Hunger Screening Food Insecurity - Worry: Never True Food Insecurity - Inability: Never True Transportation Needs: Not on file Physical Activity: Not on file Stress: Not on file Social Connections: Not on file Interpersonal Safety: Not on file Housing Instability: Not on file Review of Systems Review of Systems Constitutional: Positive for malaise/fatigue. Respiratory: Negative for cough, shortness of breath and wheezing. Hematologic/Lymphatic: Does not bruise/bleed easily. Musculoskeletal: Negative for joint pain, joint swelling, muscle cramps and muscle weakness. Gastrointestinal: Positive for heartburn. Negative for nausea and vomiting. Genitourinary: Negative for hematuria. Neurological: Positive for dizziness. Negative for headaches and light-headedness. Psychiatric/Behavioral: Negative for depression. The patient is not nervous/anxious. CARDIOVASCULAR: Please review HPI. Physical Examination General appearance: Alert, oriented and cooperative. In no acute distress. Skin: Warm and dry to touch. Head: Normocephalic, without obvious abnormality, atraumatic. Ears, Nose, Mouth, Throat: Throat clear without erythema or exudate. Dentition intact. Eyes: Conjunctivae unremarkable, EOM intact. Neck: No JVD, No carotid bruit. Neck supple, trachea midline. Respiratory: Clear to auscultation bilaterally, no use of accessory muscles. Cardiovascular: RRR with normal S1 and S2 with no murmurs. Gastrointestinal: Soft, non-tender. Bowel sounds normal. Musculoskeletal: No peripheral edema. Neurologic: Oriented to time, person and place, affect appropriate. No focal/major motor defects noted. Psychiatric: Appropriate mood, memory and judgement. VITAL SIGNS: BP 120/64 Pulse 78 Ht 162.6 cm (5' 4 ) Wt 70.8 kg (156 lb) SpO2 97% BMI 26.78 kg/m No orders of the defined types were placed in this encounter. There are no discontinued medications. IMPRESSIONS/PLAN 1. Essential hypertension 2. ST elevation myocardial infarction involving right coronary artery (CMS-HCC) - Nuc stress Lexiscan/Exercise; Future 3. Other hyperlipidemia 4. Tobacco abuse 5. ASCVD (arteriosclerotic cardiovascular disease) - Nuc stress Lexiscan/Exercise; Future 6. Dizziness - Nuc stress Lexiscan/Exercise; Future PLAN Complete stress test. She has done a great job controlling her risk factors and remains tobacco free. BP and HR are well controlled. Lipid panel is in great range. She appears euvolemic. Continue cardiac medications. Recommend follow-up in 1 year. TODAYS ORDERS Orders Placed This Encounter Procedures Nuc stress Lexiscan/Exercise FOLLOW UP Return in about 1 year (around 07/22/2024). PCP: NO PCP, NO PCP Referring Physician: No referring provider defined for this encounter. JOHN Robles 07/23/23 [id number] documented in this encounter [employer] 07-23-2023 Instructions JOHN Robles - 07/23/2023 11:00 AM EDT PLAN Complete stress test. BP and HR are well controlled. Lipid panel is in great range. Continue cardiac medications. Recommend follow-up in 1 year. Please call the office if you develop new or worsening symptoms and we will see you sooner. documented in this encounter [facility] 07-20-2023 Miscellaneous Notes Called patient to remind them to bring their most current copy of their medication list with them to their appt. Patient verbalizes understanding. documented in this encounter [facility] 07-20-2023 Telephone encounter Note Called patient to remind them to bring their most current copy of their medication list with them to their appt. Patient verbalizes understanding. [facility] 05-02-2023 Miscellaneous Notes Last ov 01/24/23 Lipid 02/01/23 documented in this encounter [facility] 05-02-2023 Telephone encounter Note Last ov 01/24/23 Lipid 02/01/23 [facility] 10-05-2022 Evaluation note Encounter Date Diagnosis Assessment Notes Oct, Chronic kidney disease, stage III (moderate) (ICD-10 - N18.30) She has CKD due to HTN with baseline serum creatinine 1.1 mg/dL. Her renal US showed unremarkable kidneys. I discussed with the importance of good HTN control to slow down the progression of CKD. Oct, Christian hy kid w cr kid I-IV (ICD-10 - I12.9) Her blood pressure is Controlled . She appears to be euvolemic. Continue current dose of the metoprolol and lisinopril Oct, Vitamin D deficiency (ICD-10 - E55.9) Calcium is within normal limit. Continue oral vitamin D Oct, Kidney stone (ICD-10 - N20.0) She has a history of kidney stones but denies any recent passage of it. I have advised her adequately hydrate herself. Oct, Microscopic hematuria (ICD-10 - R31.29) She has microscopic hematuria and was seen by Urologist . She had Cystoscopy which she reported that was unremarkable [facility] Other 04-18-2023 Evaluation note* Encounter Date Diagnosis Assessment Notes Treatment Notes Treatment Clinical Notes Aug, Peptic ulcer disease (ICD-10 - K27.9) DOING WELL ON PANTOPRAZOLE Aug, Epigastric pain (ICD-10 - R10.13) Aug, Screen for colon cancer (ICD-10 - Z12.11) [facility] Other 02-20-2023 Evaluation note* Encounter Date Diagnosis Assessment Notes Treatment Notes Treatment Clinical Notes Jun, Essential hypertension (ICD-10 - I10) [facility] Other 02-02-2023 Evaluation note* Encounter Date Diagnosis Assessment Notes Treatment Notes Treatment Clinical Notes Jun, Follow-up exam (ICD-10 - Z09) Discussed all test results in office today and what further steps are needed. Patient states understanding. Jun, Essential hypertension (ICD-10 - I10) Medications refills [facility] Other 01-27-2023 Evaluation note* Encounter Date Diagnosis Assessment Notes Treatment Notes Treatment Clinical Notes May, Essential hypertension (ICD-10 - I10) [facility] Other 11-10-2022 Evaluation note* Encounter Date Diagnosis Assessment Notes Treatment Notes Treatment Clinical Notes Mar, Chronic kidney disease, stage III (moderate) (ICD-10 - N18.30) She has CKD due to HTN with baseline serum creatinine 1.1 mg/dL. Her renal US showed unremarkable kidneys. I discussed with the importance of good HTN control to slow down the progression of CKD. Mar, Christian teixeira w cr kid I-IV (ICD-10 - I12.9) Her blood pressure is Controlled . She appears to be euvolemic. Continue current dose of the metoprolol and lisinopril Mar, Vitamin D deficiency (ICD-10 - E55.9) Calcium is within normal limit. Continue oral vitamin D Mar, Kidney stone (ICD-10 - N20.0) She has a history of kidney stones but denies any recent passage of it. I have advised her adequately hydrate herself. Mar, Microscopic hematuria (ICD-10 - R31.29) She has microscopic hematuria and was seen by Urologist . She had Cystoscopy which she reported that was unremarkable [facility] Other 07-26-2022 Evaluation note* Encounter Date Diagnosis Assessment Notes Treatment Notes Treatment Clinical Notes Nov, Essential hypertension (ICD-10 - I10) [facility] Other 04-14-2022 Evaluation note* Encounter Date Diagnosis Assessment Notes Treatment Notes Treatment Clinical Notes Aug, Chronic kidney disease, stage III (moderate) (ICD-10 - N18.30) She has CKD due to HTN with baseline serum creatinine 1.1 mg/dL. Her renal US showed unremarkable kidneys. I discussed with the importance of good HTN control to slow down the progression of CKD. Aug, Christian teixeira w cr kid I-IV (ICD-10 - I12.9) Her blood pressure is Controlled . She appears to be euvolemic. Continue current dose of the metoprolol and lisinopril Aug, Vitamin D deficiency (ICD-10 - E55.9) Calcium is within normal limit. I have advised her to change the dosoquin 3x week due to the high normal vitamin D Aug, Kidney stone (ICD-10 - N20.0) She has a history of kidney stones but denies any recent passage of it. I have advised her adequately hydrate herself. Aug, Microscopic hematuria (ICD-10 - R31.29) She has microscopic hematuria and was seen by Urologist . She had Cystoscopy which she reported that was unremarkable [facility] Other 01-31-2022 Evaluation note* Encounter Date Diagnosis Assessment Notes Treatment Notes Treatment Clinical Notes May, Essential hypertension (ICD-10 - I10) [facility] Other 01-20-2022 History general Narrative - Reported* Type Description Date Medical History Kidney stones Medical History HTN Medical History GERD (gastroesophageal reflux di sease) Medical History Anxiety Medical History HEART ATTACK 05/26/2021 Surgical History lumpectomy, left breast x2 Surgical History colonoscopy Surgical History HEART STENT 05/2021 Hospitalization History HEART ATTACK 05/2021 [facility] Other 01-20-2022 History general Narrative - Reported* Type Description Date Medical History Kidney stones Medical History HTN Medical History GERD (gastroesophageal reflux di sease) Medical History Anxiety Medical History HEART ATTACK 05/26/2021 Surgical History lumpectomy, left breast x2 Surgical History colonoscopy Surgical History HEART STENT 05/2021 Hospitalization History HEART ATTACK 05/2021 Hospitalization History NO [facility] IN THE LAST YEAR (SINCE HEART ATTACK IN 2021) 08/2022 [facility] Other 12-01-2021 Evaluation note* Encounter Date Diagnosis Assessment Notes Treatment Notes Treatment Clinical Notes Apr, Vitamin D deficiency (ICD-10 - E55.9) [facility] Other 06-18-2021 NoteChief Complaint Referral for hematuria HPI Staff Referral by Dr. Woodard for microhematuria. Pt only states that she has a slight burning when she voids sometimes but no other symptoms at this time. Dysuria: pt states that she is having a slight burn when she voids Incomplete bladder emptying: no Hematuria: no gross hematuria but UA today is trace intact Frequency: no Urgency: no Nocturia: pt does not always have to get up but states it is only 1x if at all Stream: pt states strong without hesitancy or straining Leaking: no Post void dripping: no Wearing pads/ Depends: no Urge incontinence: no Stress incontinence: no Incontinence without Sensory Awareness: no Abdominal pain: not at this time Flank pain: pt states a few days ago she was having some lower back pain but is unsure if it was muscular Sexual complaints: no History of Present Illness Reviewed UA, referral, and new pt. forms. There have been no associated fever or chills. Review of Systems PHQ Score Initial Depression Screen Score: 0 ROS - Provider Constitutional: denies weight loss, denies hot flashes. Eyes: denies eye problems. Gastrointestinal: denies nausea, denies vomiting. Cardiovascular: denies chest pain or angina. Integumentary: no dryness Musculoskeletal: denies musculoskeletal symptoms. ENMT: denies otolaryngeal symptoms. Respiratory: no shortness of breath. Heme/Lymph: denies easy bleeding tendency, denies easy bruising tendency. Psychiatric: no confusion, no anxiety. Genitourinary: denies vaginal discharge, denies incontinence, denies dysuria, mild hematuria, denies urinary frequency, denies amenorrhea, denies menorrhagia, denies abnormal bleeding, denies pelvic pain, denies genital sores, and denies decreased libido. Physical Exam Vitals & Measurements HR: 82(Peripheral) RR: 16 BP: 109/75 HT: 163.0 cm HT: 163 cm WT: 65.0 kg WT: 65 kg BMI: 24.46 General Appearance: alert , no acute distress, well nourished, well developed female. Head: normocephalic . Eyes: normal orbit and globe. ENMT: normal examination of external ears. Chest: Lungs CTA, respirations non labored . Cardiovascular: regular rate and rhythm. Abdomen: soft, non distended, no tenderness, no mass or organomegaly, no hernia. Genitourinary: bladder nonpalpable, no flank tenderness. Lymph Nodes: unremarkable palpation of the cervical area. Skin: warm, dry, no bruising. Psychiatric: cooperative, affect appropriate for age, normal judgement, euthymic mood. Assessment/Plan 1. Microscopic hematuria (R31.29: Other microscopic hematuria) UA today - trace. Pt. denies gross hematuria. Will send UA for culture and cytology. Ordering CT w/o contrast and will schedule Cystoscopy. The risks and benefits for this procedure have been discussed. The risks include bleeding, infection, and irritation of the bladder and urinary channel, among others. The patient, after being informed of procedural details and after questions have been answered, wishes to proceed. Full informed consent has been obtained. Will order Local anesthesia. ABX sent to [facility] in [place]. 2. Dysuria (R30.0: Dysuria) Intermittent. 3. History of kidney stones (Z87.442: Personal history of urinary calculi) Lithotripsy done in the past. Ordering CT. 4. CKD (chronic kidney disease), stage III (N18.30: Chronic kidney disease, stage 3 unspecified) Managed by Dr. Woodard. I have reviewed the previous health record information and history for this pt. from Dr. Fu. Follow-up With When Contact Information ERIK BLAKE, Ilya Chance, URL [address] [place] [address]- [phone] Additional Instructions: Patient Education Hematuria, Adult I, Allie Casey , personally scribed for Dr. Fu on 10/22/2020 11:25:14. . Documentation recorded by the scribe, Allie Casey, accurately reflects the services(s) I performed and decisions made by me. Authenticated by Dr. Fu on 10/22/2020 11:26:23. Problem List/Past Medical History Ongoing CKD (chronic kidney disease) Epigastric pain Essential hypertension GERD (gastroesophageal reflux disease) Hypertension Kidney stone Peptic ulcer disease Smoker Vitamin D deficiency Historical No qualifying data Procedure/Surgical History CE - Cataract extraction, Colonoscopy, Lumpectomy of left breast. Medications amLODIPine 5 mg Tab, Oral, Daily cetirizine 10 mg oral capsule, 10 mg= 1 cap(s), Oral, Daily, PRN Dosoquin Folinic-Plus, Oral, Daily lisinopril 40 mg Tab, Oral, Daily melatonin 3 mg oral tablet, extended release, 3 mg= 1 tab(s), Oral, Once a day (at bedtime), PRN Pantoprazole [address] Tab, Oral, Daily propranolol 80 mg Cap-ER, Oral, Daily Allergies No Known Allergies Social History Alcohol - Low Risk, 10/22/2020 Tobacco Smoker, current status unknown Tobacco Use:. Cigarettes, Yes, 10/22/2020 Family History Diabetes (more content not included)...[facility]:Result Comment: Electronically Signed By: Ilya FU MD\.br\Date and Time Signed: 10/22/20 11:26 EDT\.br\Electronically Co-Signed By: Allie Casey MA\.br\Date and Time Co-Signed: 10/22/2110:25 EDTEvaluation noteNo [facility] Other Evaluation note* Diagnosis Essential hypertension- Primary Unspecified essential hypertension ST elevation myocardial infarction involving right coronary artery (CMS-HCC) Other hyperlipidemia Tobacco abuse Tobacco use disorder ASCVD (arteriosclerotic cardiovascular disease) Unspecified cardiovascular disease Dizziness Dizziness and giddiness documented in this encounter [facility] N[facility]ative - Reported* Type Description Date Medical History Kidney stones Medical History HTN Medical History GERD (gastroesophageal reflux di sease) Medical History Anxiety Surgical History lumpectomy, left breast x2 Surgical History colonoscopy Hospitalization History No Hospitalization histo ry information [facility] Other InstructionsNot on filedocumented in this encounter [facility] SystemInstructionsNot on filedocumented in this encounter [facility] [employer] SystemInstructionsNot on filedocumented in this encounter [facility] [employer] SystemInstructionsNot on filedocumented in this encounter [facility] Summary Purpose Family History No Family History Records FoundNo Family History Records FoundNo Family History Records FoundNo Family History Records Found Advance Directives No Advanced Directives Records FoundNo Advanced Directives Records FoundNo Advanced Directives Records FoundNo Advanced Directives Records Found Reason for Referral Specialty Diagnoses / Procedures Referred By Contac t Referred To Contact Diagnoses ST elevation myocardial infarction involving right coronary artery (CMS-HCC) ASCVD (arteriosclerotic cardiovascular disease) Dizziness Procedures Nuc stress Lexiscan/Exercise Kim Collier, OUTCOMES ANALYST-SHALLOT CLEANER [address] [place] [address] [facility] [address] [place] [address] Phone: [phone] Referral ID Status Reason Start Date Expiration Date V isits Requested Visits Authorized [id number] Pending Review 07/23/2023 07/22/2024 5 5 Additional Source Comments INFORMATION SOURCE (unrecogn ized section and content) DATE CREATED AUTHOR 11/19/2020 Fermin Ryan [facility] DATE CREATED AUTHOR AUTHOR'S ORGANIZ ATION 06/24/[address] [facility] DATE CREATED AUTHOR AUTHOR'S ORGANIZ ATION 10/13/2022 [facility] DATE CREATED AUTHOR AUTHOR'S ORGANIZ ATION 02/22/2024 [facility] REASON FOR VISIT (unrecogniz ed section and content) Reason Comments Follow-up EST PT F/U 6 MS L/S [facility] A T [facility] Reason Comments Med Refill PATIENT HERE FOR 1 YEAR FOLLOW UPFOLLOW UP HTN, MED REFILLS, Simone Lab/Test Follow upClinical AcuteMedicineCKD and HTNCKDREFILL Care Teams (unrecognized sec tion and content) [employer] Extension Service Specialist Relationship Specialty Start Date End Date No Pcp, [place] [address] PCP - General Family Medicine 01/24/23 Regional Extension Service Specialist Relationship Specialty Start Date End Date No Pcp, [place] [address] PCP - General Family Medicine 01/24/23 Regional Extension Service Specialist Relationship Specialty Start Date End Date No Pcp, [place] [address] PCP - General Family Medicine 01/24/23 Regional Extension Service Specialist Relationship Specialty Start Date End Date No Pcp, [place] [address] PCP - General Family Medicine 01/24/23 Regional Extension Service Specialist Relationship Specialty Start Date End Date No Pcp, [place] [address] PCP - General Family Medicine 01/24/23 FOR RECORDS PERTAINING TO PATIENTS WHO ARE OR HAVE BEEN ENROLLED IN A CHEMICAL DEPENDENCY/SUBSTANCEABUSE PROGRAM, SOME INFORMATION MAY BE OMITTED. This clinical summary was aggregated from multiple sources. Caution should be exercised in using it in the provision of clinical care. This summary normalizes information from multiple sources, and as a consequence, information in this document may materially change the coding, format and clinical context of patient data. In addition, data may be omitted in some cases. CLINICAL DECISIONS SHOULD BE BASED ON THE PRIMARY CLINICAL RECORDS. [employer] MD. provides no warranty or guarantee of the accuracy or completeness of information in this document.
[2024-03-26 10:37] LABS: Bilirubin Urine NEGATIVE (NEGATIVE); Blood Urine NEGATIVE (NEGATIVE); Clarity Urine CLEAR (CLEAR); Color Urine YELLOW (YELLOW); Glucose Urine UA NEGATIVE (NEGATIVE); Ketones Urine NEGATIVE (NEGATIVE); Leukocyte Esterase Urine NEGATIVE (NEGATIVE); Nitrite Urine NEGATIVE (NEGATIVE); Protein Urine TRACE mg/dL (NEG/TRACE); Specific Gravity Urine 1.025 (1.005-1.025)
[2024-03-26 10:44] LABS: Creatinine Urine Random 318.29 mg/dL (20.00-300.00); Protein Creatinine Ratio Urine 0.08; Total Protein Urine Random 25.1 mg/dL (<=11.9)
[2024-03-26 10:46] LABS: Bacteria Urine TRACE #/HPF (NONE SEEN); Cast Seen? NONE SEEN #/LPF (NONE SEEN); Crystals Seen? None Seen #/HPF (None Seen); Mucus Urine SMALL (NONE SEEN); RBC Urine 0-2 #/HPF (0-2); Squamous Epithelial Cell Urine MANY #/LPF (NONE/RARE); WBC Urine NONE SEEN #/HPF (NONE SEEN)
[2024-03-26 10:50] LABS: Albumin Level 3.6 g/dL (3.4-5.0); Anion Gap 16.2; BUN Creatinine Ratio 8.5; Calcium 9.1 mg/dL (8.5-10.1); Carbon Dioxide 25.7 mmol/L (21.0-32.0); Chloride 106 mmol/L (98-107); Estimated GFR (African America 50 (>=60 mL/min/1.73m^2); Estimated GFR (Non-African Ame 41 (>=60 mL/min/1.73m^2); Glucose 100 mg/dL (74-106); Magnesium 2.4 mg/dL (1.8-2.4); Phosphorus 3.3 mg/dL (2.6-4.7); Potassium 3.9 mmol/L (3.5-5.1); Sodium 144 mmol/L (136-145); Uric Acid 6.7 mg/dL (2.6-6.0)
[2024-03-27 10:09] LABS: PTH, Intact 48 pg/mL (15-65)
== END 2024-03-26 10:04 | disposition home or self-care (01) ==
LOC: LAB 10:09
PROVIDERS: Visit Provider Internal Medicine
DX: I12.9 Hypertensive chronic kidney disease with stage 1 through stage 4 chronic kidney disease, or unspecified chronic kidney disease (principal); N18.30 Chronic kidney disease, stage 3 unspecified; E55.9 Vitamin D deficiency, unspecified; N20.0 Calculus of kidney; R31.29 Other microscopic hematuria
CPT/HCPCS: 36415; 80069; 81001; 82306; 82570; 83735; 83970; 84156; 84550; 85027

== ENCOUNTER 2025-03-02 09:58 | Outpatient (OUT) | payer MEDICARE, OTHER, SELFPAY ==
--- OUTSIDE RECORDS SUMMARY | 2025-03-02 10:07 | XMS_ITS | Clinical Summary ---
Author Organization [email or web address] tem Address [id number] [address] [place] [address] Care Team Providers Care Pairer Substandard Name Role Phone Monika Lyosn MD Primary Care Provider [phone] Allergies No known active allergies Medications MedicationSigDispense QuantityRefillsLast FilledStart DateEnd DateStatus cetirizine (ZyrTEC) 10 mg tablet Take 1 tablet (10 mg total) by mouth in the morning.Active pantoprazole (PROTONIX) 40 mg EC tablet Take 1 tablet (40 mg total) by mouth in the morning.Active nitroglycerin (NITROSTAT) 0.[address] 1 tablet (0.4 mg total) under the tongue every 5 (five) minutes as needed for chest pain. 90 tablet 2Active aspirin 81 mg chewable tablet Chew 1 tablet (81 mg total) and swallow in the morning. 90 tablet 4Active fluticasone propionate (FLONASE) 50 mcg/actuation nasal spray Administer 1 spray into each nostril in the morning. 16 g 5Active Additional Information Patient not taking.Reported on 08/22/2024 metoprolol succinate XL (TOPROL XL) 50 mg 24 hr tablet Indications:Essential hypertensionTake 1 tablet (50 mg total) by mouth in the morning. 90 tablet 5Active atorvastatin (LIPITOR) 40 mg tablet TAKE 1 TABLET BY MOUTH NIGHTLY 90 tablet 5Active lisinopriL (PRINIVIL,ZESTRIL) 5 mg tablet Indications:Essential hypertensionTake 1 tablet (5 mg total) by mouth in the morning. 90 tablet 5Active Active Problems ProblemNoted DateDiagnosed DateOther hpaujvpsidsnzh41/06/2022Essential xzagjyyshebd06/06/2022Tobacco abuse01/10/2022T elevation myocardial infarction (STEMI)05/26/2021 Encounters DateTypeDepartmentCare NpjgHwsljzblupt94/15/2025Refill [facility] [address] [place] [address] Humera Calvin LPN Med Refillfrom Last 3 Months Immunizations ImmunizationAdministration DatesNext DueInfluenza, Injectable, quadrivalent (PF) 02/11/2021 Family History Medical HistoryRelationNameCommentsHeart diseaseFatherCancerMotherBreast cancer Neg HxRelationNameStatusCommentsFatherDeceasedMotherDeceased Social History Tobacco UseTypesPacks/DayYears UsedDateSmoking Tobacco: QewudeKyrrtemvil876 05/29/1991 - 05/29/2021mokeless Tobacco: Never Tobacco Cessation:Counseling Given: Not Answered Alcohol UseStandard Drinks/WeekCommentsYes0 (1 standard drink = 0.6 oz pure alcohol)once in a whileChildcareAnswerDate ZawexqlcXfvqheqpiUqckdjb41/04/2021 EmploymentAnswerDate RhfflaisRlbfnzgtiuUusrtyr94/04/2021Hunger ScreeningAnswer Date RecordedWithin the past 12 months we worried whether our food would run out before we got money to buy more.Never True08/22/2024Within the past 12 months the food we bought just didn't last and we didn't have money to get more.Never True08/22/2024Purpose - LifeAnswerDate RecordedPurpose and direction in life Rjifxtm6106/10/2020CommentsNoSex and Gender InformationValueDate Recorded Sex Assigned at BirthNot on fileLegal QhlGwalpt73/06/2015 11:31 AM EDTGender IdentityNot on fileSexual OrientationNot on file Last Filed Vital Signs Vital SignReadingTime TakenCommentsBlood Utsekulc101/8604 10:44 AM EDT Wyrto7954 10:44 AM UXZChbumgguhlz71.3 ??C (99.1 ??F)06/04/2024 10:08 AM ESTRespiratory Ahgl216106/04/2024 10:08 AM ESTOxygen Hwctjushhi46%08/22/2024 10:44 AM EDTInhaled Oxygen Concentration--Dotobx56.1 kg (159 lb)09/24/2024 1:28 PM EDT Fjwvhw887.6 cm (5' 4 )09/24/2024 1:28 PM EDTBody Mass Index27.29009/24/2024 1:28 PM EDT Plan of Treatment DateTypeDepartmentCare Team (Latest Contact Info)Dxfzvxckccj02/11/2025 12:00 PM ESTOffice Visit [facility] [address] [place] [address] Sivan Ortega MD [address] [place] [address] Romelia Weeks, PACampbellC [address] [place], [place] [id number] Health MaintenanceDue DateLast DoneCommentsDepression Nhgfedxgn50/03/1971Adult BMI Follow Up Plan1976Zoster (Shingles) Vaccine (1 of 2)2008Fall Risk Kwqiacksy45/03/2024OVID-19 Vaccine ( season)2025 02/17/2024, 03/16/2021, 09/01/2020, Additional history existsInfluenza Vaccine /05/2023, 02/06/2023, 02/08/2022, Additional history existsTobacco Sqwyhtoad41dult BMI Zscarpoih81Statin Use: Bhxnxkylskjtny82DTaP,Tdap and Td Vaccines (2 - Td or Tdap) Medical Devices ImplantedTypeAreaManufacturerDevice IdentifierShelf Expiration DateModel / Serial / LotSystem Cor Stnt 3.5mm X 23mm 145cm [employer] Mtlnk Luis A - [id number] Implanted:Qty: 1 on 05/26/2021 by [facility]: ArterialABBOTT [id number] / / [id number] Insurance Care Teams Team MemberRelationshipSpecialtyStart DateEnd Date Monika Lyons MD [address] [place] [address] PCP - GeneralInternal Medicine08/22/24
[2025-03-02 10:27] LABS: Hematocrit 43.9 % (36.0-48.0); Hemoglobin 14.2 g/dL (12.0-16.0); Mean Corpuscular HGB Conc 32.3 g/dL (29.9-35.2); Mean Corpuscular Hemoglobin 29.8 pg (26.7-34.0); Mean Corpuscular Volume 92.2 fL (81.0-99.0); Platelet Count 233 10^3/uL (150-450); Red Blood Count 4.76 10^6/uL (4.20-5.40); White Blood Count 9.5 10^3/uL (4.0-11.0)
--- OUTSIDE RECORDS SUMMARY | 2025-03-02 10:30 | XMS_ITS | CCD ---
Author Organization [facility] Care Team Providers Care Market Gardener Name Role Phone Mauricio Woodardul Unavailable Libby Garcia Unavailable Louis Stanley Unavailable Angus Carl Unavailable ROB, CANELO Consulting Unavailable ROB, CANELO Admitting Unavailable JOSE, LIBBY Primary Care Unavailable ROB, CANELO Attending Unavailable ROB, CANELO Admitting Unavailable JOSE, LIBBY Primary Care Unavailable ROB, CANELO Attending Unavailable ROB, CANELO Consulting Unavailable No Pcp, No Pcp Primary Care Provider Unavailabl e No Pcp, No Pcp Primary Care Provider Unavailabl e No Pcp, No Pcp Primary Care Provider Unavailabl e Monika Lyons MD Primary Care Provider JUWAN STRINGER Referring Unavailable NO PCP, NO PCP Primary Care Unavailable JUAN MANUEL CASTELLANO Referring Unavailable NO PCP, NO PCP Primary Care Unavailable NO PCP, NO PCP Primary Care Unavailable BESSY GARDUNO Attending Unavailable BOUMEGOUAS, MANEL Attending Unavailable RACHEL, MONIKA Primary Care Unavailable BOUMEGOUAS, MANEL Referring Unavailable RACHEL, MONIKA Primary Care Unavailable BOUMEGOUAS, MANEL Attending Unavailable BOUMEGOUAS, MANEL Referring Unavailable RACHEL, MONIKA Primary Care Unavailable ROSEY, COLLETTE C Referring Unavailable RACHEL, MONIKA Primary Care Unavailable ROSEY, COLLETTE C Referring Unavailable RACHEL, MONIKA Primary Care Unavailable Medications Current Medications MedicationDrug Class(es)DatesSig (Normalized)Sig (Original)amLODIPine 5 mg oral tablet (5 sources)Dihydropyridine Calcium Channel Blockertake 1 tablet by mouth every twenty-four hoursamLODIPine Besylate 5 MG 1 tablet Orally Once a day for 90 day(s) Activeaspirin 81 mg chewable tablet (20 sources)Platelet Aggregation Inhibitor, Nonsteroidal Anti-inflammatory Drug Start: 01-30-2023 End: 74-53-6043bqdzfwn 81 mg chewable tablet Chew 1 tablet (81 mg total) and swallow in the morning. 90 tablet 1 04/28/2024 Activetake 1 tablet by mouth once dailyAspirin 81 81 MG 1 tablet Orally Once a day Activeatorvastatin 40 mg oral tablet (20 sources)HMG-CoA Reductase InhibitorStart: 01-30-2023 End: 51-02-2958mvdd 1 tablet by mouth once dailyatorvastatin (LIPITOR) 40 mg tablet TAKE 1 TABLET BY MOUTH NIGHTLY 90 tablet 2 10/23/2024 Activetake 1 tablet by mouth every twenty-four hoursAtorvastatin Calcium 40 MG 1 tablet Orally Once a day for 90 day(s) Activecetirizine hydrochloride 10 mg oral tablet (20 sources)Histamine-1 Receptor AntagonistStart: 03-74-8459sigr 1 tablet by mouth every twenty-four hoursCetirizine HCl 10 MG 1 tablet Orally Once a day for 90 days September, ActiveDosoquin 5500-200 UNIT-MCG (8 sources)take 1 tablet by mouth once daily at mealtimeDosoquin 5500-200 UNIT- MCG 1 tablet daily with food Orally 3xweek ActiveDosoquin 5500-200 UNIT-MCG 1 tablet daily with food Orally every other day for 90 days ActiveDosoquin 5500- 200 UNIT-MCG 1 tablet daily with food Orally every other day Activefluticasone propionate 0.05 mg/actuat metered dose nasal spray (7 sources)CorticosteroidStart: 54-59-7070pacs 1 spray(s) nasal route in the morningfluticasone propionate (FLONASE) 50 mcg/actuation nasal spray Administer 1 spray into each nostril in the morning. 16 g 06/04/2024 ActiveStart: 74-19-8375wjtl 2 spray(s) nasal route once dailyFluticasone Propionate 50 MCG/ACT 2 sprays Nasally Once a day for 14 day(s) Oct, ActiveFolinic- Plus 4-50-2 MG (14 sources)take 1 tablet by mouth once dailyFolinic-Plus 4-50-2 MG 1 tablet Orally qd for 30 days Activetake 1 tablet by mouth once dailyFolinic-Plus 4-50-2 MG 1 tablet Orally qd for 90 days Activehydrocortisone 10 mg/ml / neomycin 3.5 mg/ml / polymyxin b 36342 unt/ml otic suspension (1 source)Aminoglycoside Antibacterial, Polymyxin-class Antibacterial, CorticosteroidStart: 93-06-3897Mfnuujym-Polymyxin-HC 3.5-27410-5 3 drops right ear Three times a day for 7 days Oct, Activelisinopril 5 mg oral tablet (20 sources)Angiotensin Converting Enzyme InhibitorStart: 08-22-2024 End: 79-43-5534uocl 1 tablet by mouth in the morninglisinopriL (PRINIVIL,ZESTRIL) 5 mg tablet Indications: Essential hypertension Take 1 tablet (5 mg total) by mouth in the morning. 90 tablet 2 01/19/2025 ActiveStart: 04-22-2024 End: 23-63-4609aohf 1 tablet by mouth once daily in the morninglisinopriL (PRINIVIL,ZESTRIL) 2.5 mg tablet TAKE 1 TABLET BY MOUTH EVERY MORNING 90 tablet 1 04/22/2024 08/22/2024 Discontinued (Reorder)Start: 02-14-2023 End: 80-38-7571gaqo 1 tablet by mouth once daily in the morninglisinopriL (PRINIVIL,ZESTRIL) 2.5 mg tablet take 1 tablet by mouth every morning 90 tablet 2 08/06/2023 Activetake 1 tablet by mouth every twenty-four hoursLisinopril 2.5 MG 1 Tablet Orally Once a day Activetake 1 tablet by mouth every twenty-four hoursLisinopril 40 MG 1 Tablet Orally Once a day for 90 day(s) Wgnffz96 hr metoprolol succinate 50 mg extended release oral tablet (20 sources)beta-Adrenergic BlockerStart: 08-22-2024 End: 46-86-3337jdmj 1 tablet by mouth every twenty-four hours in the morning metoprolol succinate XL (TOPROL XL) 50 mg 24 hr tablet Indications: Essential hypertension Take 1 tablet (50 mg total) by mouth in the morning. 90 tablet 2 10/01/2024 ActiveStart: 07-28-2024 End: 06-81-3642xjla 1 tablet by mouth every twenty-four hours in the morning metoprolol succinate XL (TOPROL XL) 25 mg 24 hr tablet TAKE 1 TABLET BY MOUTH IN THE MORNING 90 tablet 07/28/2024 08/22/2024 Discontinued (Reorder)Start: 01-30-2023 End: 37-57-0931zifj 1 tablet by mouth once daily in the morningmetoprolol succinate XL (TOPROL XL) 25 mg 24 hr tablet take 1 tablet by mouth every morning 90 tablet 1 01/18/2024 07/28/2024 Discontinuedtake 1 tablet by mouth every twenty-four hoursMetoprolol Succinate ER 25 MG 1 tablet Orally Once a day Active Nitro Sublingual 0.4 0.4mg (9 sources)Nitro Sublingual 0.4 0.4mg 1 Sublingual Every 5min x3 Active nitroglycerin 0.4 mg sublingual tablet (16 sources)Nitrate VasodilatorStart: 41-61-8884tsmdgwuhzfioi (NITROSTAT) 0.[address] 1 tablet (0.4 mg total) under the tongue every 5 (five) minutes as needed for chest pain. 90 tablet 1 05/28/2021 Activepantoprazole 40 mg delayed release oral tablet (20 sources)Proton Pump InhibitorStart: 98-04-4884bikw 1 tablet by mouth every twenty-four hoursPantoprazole Sodium 40 MG 1 tablet Orally Once a day for 30 day(s) Nov, Hvbaem53 hr propranolol hydrochloride 80 mg extended release oral capsule (5 sources)beta-Adrenergic BlockerStart: 92-76-4219qlmo 1 capsule by mouth every twenty-four hoursPropranolol HCl ER 80 MG 1 capsule Orally Once a day for 90 days Nov, Active Completed/Discontinued Medications MedicationDrug Class(es)DatesSig (Normalized)Sig (Original)prasugrel (8 sources)P2Y12 Platelet InhibitorPrasugrel Hcl 10 mg Take as directed Not-TakingPrasugrel Hcl 10 mg Take as directed Active Problems Active Problems Problem ClassificationProblemDateDocumented DateEpisodic/ChronicAbdominal pain (16 sources)Epigastric pain; Translations: [Epigastric pain]Onset: 09-08-2024 EpisodicAcute myocardial infarction (19 sources)Myocardial infarction; Translations: [ST elevation (STEMI) myocardial infarction of unspecified site]Onset: 172920-43-7881Vqgsvkj Calculus of urinary tract (18 sources)Kidney stone; Translations: [Calculus of kidney]Onset: 08-18-2021 Resolved: 33-38-1116IfofuxsoViexuui dysrhythmias (3 sources)Palpitations; Translations: [Palpitations]Onset: 470265-91-9672 EpisodicChronic kidney disease (1 source)Chronic kidney disease stage 3A ; Translations: [Stage 3a chronic kidney disease (CMS-HCC)]45-26-2617TdmweixFaaeino kidney disease (18 sources)Chronic kidney disease; Translations: [Chronic kidney disease, stage III (moderate)]Onset: 08-18-2021 Resolved: 75-27-4899Ycnzlsac atherosclerosis and other heart disease (3 sources)Arteriosclerotic vascular disease; Translations: [Atherosclerotic heart disease of chicken [place] coronary artery without angina pectoris]Onset: 378163-57-1768XnauywvQzjqgiagd of lipid metabolism (19 sources)Hyperlipidemia; Translations: [Other hyperlipidemia]Onset: 638834-42-6082CpamojyMkglbbubg hypertension (20 sources)Essential hypertension; Translations: [Essential (primary) hypertension]Onset: 06-06-2021 Resolved: 92-46-4913CcrunlsVjfvjbeblxseqe ulcer (except hemorrhage) (15 sources)Peptic ulcer; Translations: [Peptic ulcer, site unspecified, unspecified as acute or chronic, without hemorrhage or perforation]Chronic Genitourinary symptoms and ill-defined conditions (4 sources)Other microscopic hematuria; Translations: [OTHER MICROSCOPIC HEMATURIA]Onset: 08-18-2021 Resolved: 86-35-6210JhlolarhEwfpdakvbwbz with complications and secondary hypertension (20 sources)Chronic kidney disease due to hypertension; Translations: [Hypertensive chronic kidney disease withstage 1 through stage 4 chronic kidney disease, or unspecified chronic kidney disease]Onset: 08-18-2021 Resolved: 60-30-4614XuyincqKljewpetmvosw and screening for infectious disease (1 source)Encounter for screening for human immunodeficiency virus [HIV]; Translations: [Encounter for screening for human immunodeficiency virus (HIV)] Onset: 64-95-6078MsvrcfgoInoqnvpsa (1 source)InfluenzaOnset: 99-97-4436Njntrhknwdt deficiencies (19 sources)Vitamin D deficiency; Translations: [Vitamin D deficiency, unspecified]Onset: 04-06-2021 Resolved: 89-88-7323XyiusgySzftqbkqbczi (1 source)Age-related osteoporosis without current pathological fracture; Translations: [Age-related osteoporosis without current pathological fracture] Onset: 51-11-0090MlqevjsVwqus aftercare (1 source)Encounter for follow-up examination after completed treatment for conditions other than malignant neoplasmEpisodicOther screening for suspected conditions (not mental disorders or infectious disease) (3 sources)Encounter for screening for malignant neoplasm of colon; Translations: [Encounter for screening mammogram for malignant neoplasm of breast]Onset: 33-32-4727BbesswcxLjawwfosrxsb (1 source)CHRN KIDNEY DISEASE STG 3 UNSP; Translations: [CHRN KIDNEY DISEASE STG 3 UNSP]Onset: 73-85-8968Czebqylijnvg (1 source)Cough; FatigueOnset: 06-04-2024 Past or Other Problems Problem ClassificationProblemDateDocumented DateEpisodic/ChronicConditions associated with dizziness or vertigo (1 source)Dizziness; Translations: [Dizziness and giddiness]97-52-0682Jkivbwes Other aftercare (1 source)Patient encounter status; Translations: [Other fci (current) drug therapy]79-02-0490AthjohoaGuhda aftercare (1 source)Other intermediate designer (current) drug therapy; Translations: [Other fci (current) drug therapy]Onset: 16-43-0628DetprhefZsbmr upper respiratory infections (1 source)Acute upper respiratory infection, unspecified; Translations: [Acute upper respiratory infection, unspecified]Onset: 05-50-2150UpyzubwcKzjvktej codes; unclassified (18 sources)Tobacco user; Translations: [Tobacco use]Onset: 583595-50-9013 EpisodicResidual codes; unclassified (1 source)Tobacco use; Translations: [Tobacco use]Onset: 36-99-4578Wxbtpnym Results Test NameValueInterpretationReference RangeFacilityDEXA SCAN CENTRAL SKELETALon 23-06-4403IGCN SCAN CENTRAL SKELETALDEXA SCAN CENTRAL SKELETAL DEXA SCAN CENTRAL SKELETAL: 09/24/2024 1:24 PM CLINICAL: Post menopausal. Exam/Technique: DEXA Scan (Dual Energy X-ray Absorptiometry) Findings: PA Lumbar Spine: BMD: 1.149 g/cm2. T-score: -0.4 Left Femoral neck: BMD 0.717 g/cm2. T-score: -2.3 Right Femoral neck: BMD 0.773 g/cm2. T-score: -1.9 Fracture Risk: According to FRAX, 10 year probability of any major osteoporosis-related fracture is 12.5%, 10 yearprobability of hip fracture is 2.4 % IMPRESSION: * Osteopenia. PLEASE NOTE * T-score compares patient BMD to a reference of young normal controls. World Health Organization Classification: Osteoporosis: T-score=-2.5 or below. Osteopenia (low bone mass): T-score between -1.0 and -2.5. Normal: T-score -1.0 or above. Secondary causes of bone loss should be evaluated if clinically indicated since the etiology of lowBMD cannot be determined by BMD measurement alone. The current national osteoporosis Foundation guide recommends treating patient's with FRAX10 year risk score of greater than or equal to 3% for hip fracture or greater than or equal to 20% for major osteoporotic fracture, to reduce their fracture risk. Finalized by Lg Matthews MD on 09/25/2024 6:24 [facility] SCREENING BILATERAL W CADon 84-98-7744NROG SCREENING BILATERAL W CAD[facility] W CAD [employer]OEMAKER 1960 [id number] EXAM: MAMM SCREENING BILATERAL W CAD, 09/24/2024 1:24 PM CLINICAL INDICATIONS: Screening, Encounter for screening mammogram for breast cancer COMPARISON: No prior studies currently available for comparison. TECHNIQUE: Bilateral digital tomosynthesis MLO and CC views of the breasts were obtained, with creation of synthetic 2D views. Computer aided detection was utilized. FINDINGS: There are scattered areas of fibroglandular density. There are no suspicious masses, calcifications, or areas of architectural distortion. IMPRESSION: No mammographic evidence of malignancy. BI-RADS: BI-RADS 1 - Negative RECOMMENDATION: Routine screening mammogram in 1 year. RISK ASSESSMENT: Unavailable due to history of breast cancer Finalized by Louis Garcia MD on 09/25/2024 9:15 AM 1 b [facility] WITH AUTO DIFFERENTIALon 09-08-2024 BASOPHILS ABSOLUTE COUNT (10*3/UL) BY AUTOMATED COUNT0.0 10*3/uLMercy Health St. Rita's Medical CenterComment on above:Performed By: #### CBCA #### [facility] ([facility]) [address] [place] [address] VIRBASOPHILS RELATIVE PERCENT BY AUTOMATED COUNT0.4 %Normal [facility] Medical CenterComment on above:Performed By: #### CBCA #### [facility] ([facility]) [address] [place] [address] VIRCELLAVISION DIFFERENTIAL TYPEAUTOMATED DIFFERENTIALSaint John'S Saint Francis Hospitalal [facility]ike Medical CenterComment on above:Performed By: #### CBCA #### [facility] ([facility]) [address] [place] [address] VIREosinophils (Bld) [#/Vol]0.2 10*3/uLMercy Health St. Rita's Medical CenterComment on above:Performed By: #### CBCA #### [facility] ([facility]) [address] [place] [address] VIREOSINOPHILS RELATIVE PERCENT BY AUTOMATED COUNT3.2 %Normal [facility] Medical CenterComment on above:Performed By: #### CBCA #### [facility] ([facility]) [address] [place] [address] VIRErythrocyte distribution width (RBC) [Ratio]13.4 %Normal 11.5-15A[facility] Medical CenterComment on above:Performed By: #### CBCA #### [facility] ([facility]) [address] [place] [address] VIRHematocrit (Bld) [Volume fraction]39.3 %Vdngdb48-67QgpKylrtzAdena Pike Medical CenterComment on above:Performed By: #### CBCA #### [facility] ([facility]) [address] [place] [address] VIRHemoglobin (Bld) [Mass/Vol]13.0 g/vQEtjnyn81.7-15.5ProMedCottage Children's HospitalComment on above:Performed By: #### CBCA #### [facility] ([facility]) [address] [place] [address] VIRLYMPHOCYTES ABSOLUTE COUNT (10*3/UL) BY AUTOMATED COUNT1.5 10*3/uLNoBarberton Citizens HospitalComment on above:Performed By: #### CBCA #### [facility] ([facility]) [address] [place] [address] VIRLYMPHOCYTES RELATIVE PERCENT BY AUTOMATED COUNT27.3 %Normal [facility] Medical CenterComment on above:Performed By: #### CBCA #### [facility] ([facility]) [address] [place] [address] VIRMCH (RBC) [Entitic mass]29.1 lzSolrpz73-57XajThoroeHarlingen Medical CenterComment on above:Performed By: #### CBCA #### [facility] ([facility]) [address] [place] [address] VIRMCHC (RBC) [Mass/Vol]33.1 g/uWQiovrx53-29YydQzoiomAdena Pike Medical CenterComment on above:Performed By: #### CBCA #### [facility] ([facility]) [address] [place] [address] VIRMCV (RBC) [Entitic vol]88 jOIrjxpd35-131MxjSicuhw [facility] HospitalComment on above:Performed By: #### CBCA #### [facility] ([facility]) [address] [place] [address] VIRMONOCYTES ABSOLUTE COUNT (10*3/UL) BY AUTOMATED COUNT0.4 10*3/uLNormalProCleveland Clinic Fairview Hospital HospitalComment on above:Performed By: #### CBCA #### [facility] ([facility]) [address] [place] [address] VIRMONOCYTES RELATIVE PERCENT BY AUTOMATED COUNT6.8 %Normal [facility] Medical CenterComment on above:Performed By: #### CBCA #### [facility] ([facility]) [address] [place] [address] VIRNEUTROPHILS ABSOLUTE COUNT BY AUTOMATED COUNT3.5 10*3/uL NormalAdena Pike Medical CenterComment on above:Performed By: #### CBCA #### [facility] ([facility]) [address] [place] [address] VIRNEUTROPHILS RELATIVE PERCENT BY AUTOMATED COUNT62.3 %Normal [facility] Medical CenterComment on above:Performed By: #### CBCA #### [facility] ([facility]) [address] [place] [address] VIRPlatelet mean volume (Bld) [Entitic vol]10.2 fLNormal7-12 [facility] Medical CenterComment on above:Performed By: #### CBCA #### [facility] ([facility]) [address] [place] [address] VIRPlatelets (Bld) [#/Vol]195 10*3/uKVpmgke668-072TetWjvxde [facility] HospitalComment on above:Performed By: #### CBCA #### [facility] ([facility]) [address] [place] [address] VIRRBC COUNT4.47 X10E12/LNormal3.8-5.2ProMedica [facility] Tracy Community HospitalComment on above:Performed By: #### CBCA #### [facility] ([facility]) [address] [place] [address] VIRWBC (Bld) [#/Vol]5.6 10*3/uLNormal4-11A[facility]ike Medical CenterComment on above:Performed By: #### CBCA #### [facility] ([facility]) [address] [place] [address] VIRCOMPREHENSIVE METABOLIC PANELon 86-30-6816Ossxtdf [Mass/Vol] 4.1 g/dLNormal3.2-5.3PWilson Memorial HospitalComment on above:Performed By: #### CMP #### [facility] ([facility]) [address] [place] [address] VIRALP [Catalytic activity/Vol]92 U/RVxrvyo42-118UxpJgruwoHarlingen Medical CenterComment on above:Performed By: #### CMP #### [facility] ([facility]) [address] [place] [address] VIRALT [Catalytic activity/Vol]16 U/LNormal<=31PWilson Memorial HospitalComment on above:Performed By: #### CMP #### [facility] ([facility]) [address] [place] [address] VIRAnion gap [Moles/Vol]11 mmol/LNormal5-15ProHarlingen Medical CenterComment on above:Performed By: #### CMP #### [facility] ([facility]) [address] [place] [address] VIRAST [Catalytic activity/Vol]14 U/LNormal<=41ProHarlingen Medical CenterComment on above:Performed By: #### CMP #### [facility] ([facility]) [address] [place] [address] VIRBilirubin [Mass/Vol]0.6 mg/dLNormal0.3-1.2PWilson Memorial HospitalComment on above:Performed By: #### CMP #### [facility] ([facility]) [address] [place] [address] VIRCalcium [Mass/Vol]9.3 mg/dLNormal8.5-10.5PWilson Memorial HospitalComment on above:Performed By: #### CMP #### [facility] ([facility]) [address] [place] [address] VIRChloride [Moles/Vol]107 mmol/AEdivli10-738PlpJglmppHarlingen Medical CenterComment on above:Performed By: #### CMP #### [facility] ([facility]) [address] [place] [address] VIRCO2 [Moles/Vol]26 mmol/QLrbrfi95-21NpeVgloipWilson Memorial HospitalComment on above:Performed By: #### CMP #### [facility] ([facility]) [address] [place] [address] VIRCreatinine [Mass/Vol]0.94 mg/dLNormal0.40-1.00ProHarlingen Medical CenterComment on above:Result Comment: METHOD TRACEABLE TO IDMS STANDARDPerformed By: #### CMP #### [facility] ([facility]) [address] [place] [address] VIRGFR/1.73 sq M.predicted among non-blacks MDRD (S/P/Bld) [Vol rate/Area]67 mL/min/{1.73_m2}Normal>=60ProHarlingen Medical CenterComment on above:Result Comment: Reported eGFR is based on the CKD-EPI 2020 equation that does not use a race coefficient.Performed By: #### CMP #### [facility] ([facility]) [address] [place] [address] VIRGlucose [Mass/Vol]94 mg/iNPvlbut40-59AivKamqowHarlingen Medical CenterComment on above:Performed By: #### CMP #### [facility] ([facility]) [address] [place] [address] VIRPotassium [Moles/Vol]4.2 mmol/LNormal3.5-5.0ProHarlingen Medical CenterComment on above:Performed By: #### CMP #### [facility] ([facility]) [address] [place] [address] VIRProtein [Mass/Vol]6.9 g/dLNormal6.0-8.0Adena Pike Medical CenterComment on above:Performed By: #### CMP #### [facility] ([facility]) [address] [place] [address] VIRSodium [Moles/Vol]144 mmol/NAmwspv063-295AucUdkzmq [facility] HospitalComment on above:Performed By: #### CMP #### [facility] ([facility]) [address] [place] [address] VIRUrea nitrogen [Mass/Vol]15 mg/dLNormal5-27ProHarlingen Medical CenterComment on above:Performed By: #### CMP #### [facility] ([facility]) [address] [place] [address] VIRHEPATITIS C(HCV) ANTIBODY W/REFLEX TO PCRon 41-10-0884EDXC HCV W/PCR MAWCSHnu-QdglwgpcFtppdqDte-YdwvyxruRaeSryime [facility] HospitalComment on above:Result Comment: If recent infection suspected, recommend repeat testing (>2 months). Zpucnr-qq-cshxkh ratio is <1.0.Performed By: #### HCV #### [facility] ([facility]) [address] [place] [address] VIRHIV 1 AND 2 AB/AG SCREEN (P24 AG)on 77-81-9847PFR 1 AND 2 AB/AG DPYFVSUnh-XpskbkxzFlvfnkNog-MiveqgkdTzlKjbuok [facility] HospitalComdetroit receiving hospital on above:Order Comment: This information has been disclosed to you from confidential records protected from disclosure by state law. You shall make no further disclosure of this information without the specific, written and informed release of the individual to whom it pertains, or as otherwise permitted bystate law. A general authorization for the release of medical or other information is not sufficient for the purpose of the release of HIV test results or diagnoses.Performed By: #### HIV4 #### [facility] [facility]) [address] [place] [address] VIRLIPID PROFILEon 67-65-1115Untjoiovqat [Mass/Vol]144 mg/dLLow 150-200ProHarlingen Medical CenterComment on above:Performed By: #### LIPR #### [facility] ([facility]) [address] [place] [address] VIRCholesterol in HDL [Mass/Vol]42 mg/dLNormal>39ProHarlingen Medical CenterComment on above:Result Comment: HDL <40 mg/dL - High Risk HDL > or = 40mg/dL- Desirable HDL >60 mg/dL - Negative RiskPerformed By: #### LIPR #### [facility] ([facility]) [address] [place] [address] VIRCholesterol in LDL [Mass/Vol]73 mg/dLNormal<130ProHarlingen Medical CenterComment on above:Result Comment: LDL <100 mg/dL - Desirable LDL >160 mg/dL - High RiskPerformed By: #### LIPR #### [facility] ([facility]) [address] [place] [address] VIRCHOLESTEROL:HDL3.6Wdgman9.0-5.0[facility] Comment on above:Performed By: #### LIPR #### [facility] ([facility]) [address] [place] [address] VIRTriglyceride [Mass/Vol]147 mg/sPPensok08-853FpuCdrwpw [facility]ont HospitalComment on above:Performed By: #### LIPR #### [facility] ([facility]) [address] [place] [address] VIRVERY LOW VTHHOZAVDBK96 mg/dLNormal0-30ProHarlingen Medical CenterComment on above:Performed By: #### LIPR #### [facility] ([facility]) [address] [place] [address] VIRBASIC METABOLIC PANLon 53-39-6735Zifch gap [Moles/Vol]10 mmol/LNormal5-15A[facility]ike Medical CenterComment on above:Performed By: #### BMP #### [facility] ([id number]) [address] [address] [place], [place] [address]Dnmbdvp [Mass/Vol]9.3 mg/dLNormal8.5-10.5PWilson Memorial HospitalComment on above:Performed By: #### BMP #### [facility] ([id number]) [address] [place], [place] [address]Naadmfvn [Moles/Vol]107 mmol/KXwyffw92-061KraVzunuxHarlingen Medical CenterComment on above:Performed By: #### BMP #### [facility] ([id number]) [address] [address] [place], [place] [address]UV5 [Moles/Vol]26 mmol/CPjebon27-58DdbLympxnWilson Memorial Hospital Comment on above:Performed By: #### BMP #### [facility] ([id number]) [address] [place], [place] [address]Kdnfuwidmm [Mass/Vol]0.95 mg/dLNormal0.40-1.00ProHarlingen Medical CenterComment on above:Result Comment: METHOD TRACEABLE TO IDMS STANDARD Performed By: #### BMP #### [facility] ([id number]) [address] [address] [place], [place] [address]MMX/1.73 sq M.predicted among non-blacks MDRD (S/P/Bld) [Vol rate/Area]66 mL/min/{1.73_m2}Normal>59ProHarlingen Medical CenterComment on above:Result Comment: Reported eGFR is based on the CKD-EPI 2020 equation that does not use a race coefficient.Performed By: #### BMP #### [facility] ([id number]) [address] [place], [place] [address]Fedjcpv [Mass/Vol]95 mg/bUXxciip43-80HgsXyvfdtAdena Pike Medical Center Comment on above:Performed By: #### BMP #### [facility] ([id number]) [address], [address] [place], [place] [address]Qsmzuctev [Moles/Vol]4.0 mmol/LNormal3.5-5.0ProHarlingen Medical CenterComment on above:Performed By: #### BMP #### [facility] ([id number]) [address] [place], [place] [address]Mxqdhm [Moles/Vol]143 mmol/MQclrdq947-515XlbZpzvca [facility]ont HospitalComment on above:Performed By: #### BMP #### [facility] ([id number]) [address], [address] [place], [place] [address]Uaqh nitrogen [Mass/Vol]13 mg/dLNormal5-27ProHarlingen Medical CenterComment on above:Performed By: #### BMP #### [facility] ([id number]) [address], [address] [place] [address]YDQY EKGon 50-53-5272LmzNmjzyzFirstHealthARS/FLU A+B/RSV by NAAT/Molecularon 81-78-7522TSZD/FLU A+B/RSV by NAAT/MolecularFLU A PCR Positive (qualifier value) FLU B PCR Negative (qualifier value) RSV by PCR Negative (qualifier value) SARS CoV 2 Not detected (qualifier value) NOTE The Xpert Xpress SARS-CoV-2/Flu/RSV Plus test is a rapid, multiplexed real-time RT-PCR test intended for the simultaneous qualitative detection and differentiation of SARS-CoV-2, influenza A, influenza B and respiratory syncytial virus (RSV) viral RNA from individuals suspected of respiratory viral infection consistent with COVID-19 by their healthcare provider. This test has not been validated in asymptomatic patients. The Xpert Xpress SARS-CoV-2 test is intended for use by qualified and trained operators who are performing tests using either GeneXpert DX or GeneXpert Grabhouse systems and is limited to laboratories that meet the CLIA requirements to perform high and moderate complexity tests. The Xpert Xpress SARS-CoV-2/Flu/RSV Plus is only for use under the Food and Drug Administration's Emergency Use Authorization. Results are for the simultaneous detection and differentiation of SARS-CoV-2, influenza A, influenza B and RSV nucleic acids in clinical specimens. SARS-CoV-2, influenza A, influenza B and RSV RNA identified by this test are generally detectable in upper respiratory samples during the acute phase of infection. Positive results are indicative of the presence of the identified virus, but do not rule out bacterial infection or co-infection with other pathogens not detected by this test. Clinical correlation with patient history and other diagnostic information is necessary to determine patient infection status. The agent detected may not be the definite cause of disease. Negative results do not preclude SARS-CoV-2, influenza A, influenza B and RSV infection and should not be used as the sole basis for treatment or other patient management decisions. Negative results must be combined with clinical observations, patient history and epidemiological information. An Invalid result may occur with specimen-associated inhibition unable to be resolved with specimen repeat. Fact Sheet for Healthcare Providers: https://www.fda.gov/media/509545/download Fact Sheet for Patients: https://www.fda.gov/media/337238/downloadNormalProHarlingen Medical CenterComment on above:Performed By: #### COVFLR #### [facility] ([id number]) [address] [place] [address], FIRST FLOOR [place], [place] [address]BOCDK METABOLIC PANLon 99-42-9960Qewyd gap [Moles/Vol]11 mmol/L Normal5-15ProHarlingen Medical CenterComment on above:Performed By: #### BMP #### [facility] ([id number]) [address] [place] [address], [address] [place], [place] [address]Phvcqch [Mass/Vol]9.3 mg/dLNormal8.5-10.5ProMedica Sutter Tracy Community HospitalComment on above:Performed By: #### BMP #### [facility] ([id number]) [address], [address] [place], [place] [address]Aaakspkl [Moles/Vol]104 mmol/UNjpfab31-737FwcXnrczeHarlingen Medical CenterComment on above:Performed By: #### BMP #### [facility] ([id number]) [address], [address] [place], [place] [address]CY8 [Moles/Vol]25 mmol/VIkpkgl18-60DomTcnttoWilson Memorial Hospital Comment on above:Performed By: #### BMP #### [facility] ([id number]) [address] [place], [place] [address]Eotaapmphz [Mass/Vol]1.09 mg/dLHigh0.40-1.00A[facility]ike Medical CenterComment on above:Result Comment: METHOD TRACEABLE TO IDMS STANDARD Performed By: #### BMP #### [facility] ([id number]) [address] [place], [place] [address]KCF/1.73 sq M.predicted among non-blacks MDRD (S/P/Bld) [Vol rate/Area]56 mL/min/{1.73_m2}Low>59ProHarlingen Medical CenterComment on above: Result Comment: Reported eGFR is based on the CKD-EPI 1 equation that does not use a race coefficient.Performed By: #### BMP #### [facility] ([id number]) [address] [place], [place] [address]Khnrdzd [Mass/Vol]112 mg/fTJybl48-08CpsPkrhndAdena Pike Medical Center Comment on above:Performed By: #### BMP #### [facility] ([id number]) [address] [address] [place], [place] [address]Wwndswztn [Moles/Vol]4.0 mmol/LNormal3.5-5.0A[facility]ike Medical CenterComment on above:Performed By: #### BMP #### [facility] ([id number]) [address] [place], [place] [address]Zwwjnu [Moles/Vol]140 mmol/JGjrtmt167-620IluJzbxwl [facility] HospitalComment on above:Performed By: #### BMP #### [facility] ([id number]) [address] [place], [place] [address]Tdlk nitrogen [Mass/Vol]15 mg/dLNormal5-27ProHarlingen Medical CenterComment on above:Performed By: #### BMP #### [facility] ([id number]) [address] [place], [place] [address]CWKGU METABOLIC PANLon 10-14-3524Bcxwe gap [Moles/Vol]7 mmol/L Normal5-15ProHarlingen Medical CenterComment on above:Performed By: #### 00906-9, BMP #### [facility] ([id number]) [address] [place], [place] [address]Hdinbhb [Mass/Vol]9.5 mg/dLNormal8.5-10.5PWilson Memorial HospitalComment on above:Performed By: #### 68563-5, BMP #### [facility] ([id number]) [address] [place], [place] [address]Xchwvpjp [Moles/Vol]103 mmol/LIhcktp49-351GcvUrsdqzHarlingen Medical CenterComment on above:Performed By: #### 58509-4, BMP #### [facility] ([id number]) [address] [place], [place] [address]EM0 [Moles/Vol]28 mmol/WMvytxe88-84XzlDsozqlWilson Memorial Hospital Comment on above:Performed By: #### 88391-2, BMP #### [facility] ([id number]) [address] [place], [place] [address]Zaptmqrkap [Mass/Vol]1.26 mg/dLHigh0.40-1.00A[facility] Pike Medical CenterComment on above:Result Comment: METHOD TRACEABLE TO IDMS STANDARD Performed By: #### 30868-6, BMP #### [facility] ([id number]) [address] [place], [place] [address]XHJ/1.73 sq M.predicted among non-blacks MDRD (S/P/Bld) [Vol rate/Area]47 mL/min/{1.73_m2}Low>59ProHarlingen Medical CenterComment on above: Result Comment: Reported eGFR is based on the CKD-EPI 2020 equation that does not use a race coefficient.Performed By: #### 30095-7, BMP #### [facility] ([id number]) [address] [place], [place] [address]Hrwlxxp [Mass/Vol]102 mg/eFYegr55-02RjhVbibylHarlingen Medical Center Comment on above:Performed By: #### 27469-3, BMP #### [facility] ([id number]) [address] [place], [place] [address]Mejmmvfbs [Moles/Vol]4.2 mmol/LNormal3.5-5.0ProHarlingen Medical CenterComment on above:Performed By: #### 60788-6, BMP #### [facility] ([id number]) [address] [place], [place] [address]Riakkp [Moles/Vol]138 mmol/HLhpzsa286-213UfnXbwqsy [facility] HospitalComment on above:Performed By: #### 12258-3, BMP #### [facility] ([id number]) [address] [place], [place] [address]Ckwt nitrogen [Mass/Vol]11 mg/dLNormal5-27ProHarlingen Medical CenterComment on above:Performed By: #### 69084-6, BMP #### [facility] ([id number]) [address] [place], [place] [address]Vdquv 1996 panelon 20-53-0513Onndbzzjzux [Mass/Vol]149 mg/dLLow 150-200ProHarlingen Medical CenterComment on above:Performed By: #### 79260-6, BMP #### [facility] ([id number]) [address], [address] [place] [address]Zkkufwulena in HDL [Mass/Vol]48 mg/dLNormal>39ProHarlingen Medical CenterComment on above:Result Comment: HDL <40 mg/dL - High Risk HDL > or = 40mg/dL- Desirable HDL >60 mg/dL - Negative Risk Performed By: #### 28465-0, BMP #### [facility] ([id number]) [address] [place], [place] [address]Mndwarngakf in LDL [Mass/Vol]76 mg/dLNormal<130ProHarlingen Medical CenterComment on above:Result Comment: LDL <100 mg/dL - Desirable LDL >160 mg/dL - High Risk Performed By: #### 47972-9, BMP #### [facility] ([id number]) [address] [place], [place] [address]Ifdrxzwspzh in VLDL [Mass/Vol]25 mg/dLNormal0-30ProHarlingen Medical CenterComment on above:Performed By: #### 55728-9, BMP #### [facility] ([id number]) [address] [place], [place] [address]ATHSNOZEQAT:HDL3.0Lqazzb2.0-5.0ProHarlingen Medical CenterComment on above:Performed By: #### 18003-0, BMP #### [facility] ([id number]) [address] [place], [place] [address]Zamcbvsjvgca [Mass/Vol]127 mg/jHXvarcw25-447LvtSfvdpg [facility] HospitalComment on above:Performed By: #### 47947-7, BMP #### [facility] ([id number]) [address] [facility] [place], [place] [address]HSM INTACTon 71-73-7734PWD, Oryodp75 pg/cSZkihvo78-18Zae [facility] HospitalComment on above:Performed By: #### PTHINT #### [facility] [address] [place] [address] Dr. Abel MoraHEMOGRAM AND PLATELon 20-77-3698Kdeddqvnbe (Bld) [Volume fraction]41.8 %Vcecrj73.0-48.0The [facility] HospitalComment on above:Performed By: #### HH #### [facility] [address] [place] [address] Dr. Abel MoraHemoglobin (Bld) [Mass/Vol]13.0 g/yEIilhmu85.0-16.0The [facility] HospitalComment on above:Performed By: #### HH #### [facility] [address] [place] [address] Dr. Abel Reed (RBC) [Entitic mass]29.2 ryDapjch76.7-34.0The [facility] HospitalComment on above:Performed By: #### HH #### [facility] [address] [place] [address] Dr. [facility] (RBC) [Mass/Vol]31.1 g/nBJbozrw24.9-35.2The [facility] HospitalComment on above:Performed By: #### HH #### [facility] [address] [place] [address] Dr. Abel ReedV (RBC) [Entitic vol]93.9 fGQkevns76.0-99.0The [facility] HospitalComment on above:Performed By: #### HH #### [facility] [address] [place] [address] Dr. Abel MoraPLT221 103/pbHptwhk734-547Omv [facility] HospitalComment on above: Performed By: #### HH #### [facility] [address] [place] [address] Dr. Abel MoraRBC4.45 106/ulNormal4.20-5.40The [facility] HospitalComment on above:Performed By: #### HH #### [facility] [address] [place] [address] Dr. Abel MoraWBC7.6 103/ulNormal4.0-11.0The [facility] HospitalComment on above: Performed By: #### HH #### [facility] [address] [place] [address] Dr. Abel MoraMAGNESIUMon 13-99-7585Xkcjmsefj [Mass/Vol]2.2 mg/dLNormal1.8-2.4 The [facility] HospitalComment on above:Performed By: #### URIC, RENAL, MG #### [facility] [address] [place] [address] Dr. Abel KruegerAL FUNCTION PANELon 85-90-8904Azbyvkv [Mass/Vol]3.5 g/dLNormal 3.4-5.0The [facility] HospitalComment on above:Performed By: #### URIC, RENAL, MG #### [facility] [address] [place] [address] Dr. Abel MoraCalcium [Mass/Vol]9.0 mg/dLNormal8.5-10.1The [facility] Comment on above:Performed By: #### URIC, RENAL, MG #### [facility] [address] [place] [address] Dr. Abel MoraChloride [Moles/Vol]104 mmol/KMrkldk31-506TfwLakehealth Tripoint Medical Center Comment on above:Performed By: #### URIC, RENAL, MG #### [facility] [address] [place] [address] Dr. Abel MoraCO2 [Moles/Vol]27.4 mmol/VPklksb73.0-32.0[facility] Comment on above:Performed By: #### URIC, RENAL, MG #### [facility] [address] [address] [address] Abel MoarCreatinine [Mass/Vol]1.16 mg/dLCritically high0.55-1.02L[facility] Medical CenterComment on above:Performed By: #### URIC, RENAL, MG #### [facility] [address] [place] [address] Dr. Roman ChangEGFR-AF UQIAAEKH91 mL/min/1.11t4Prtywckccv low>=60The [facility] HospitalComment on above:Performed By: #### URIC, RENAL, MG #### [facility] [address] [place] [address] Dr. Abel GutierrezGFR-NON AF EHXFLGGZ91 mL/min/1.34f7Ckrwwvsgsy low>=60The [facility] HospitalComment on above:Performed By: #### URIC, RENAL, MG #### [facility] [address] [place] [address] Dr. Abel MoraGlucose [Mass/Vol]99 mg/tDMypdez52-853YapLakehealth Tripoint Medical Center Comment on above:Performed By: #### URIC, RENAL, MG #### [facility] [address] [place] [address] Dr. Abel MoraPhosphate [Mass/Vol]3.0 mg/dLNormal2.6-4.7The [facility] Comment on above:Performed By: #### URIC, RENAL, MG #### [facility] [address] [place] [address] Dr. Abel MoraPotassium [Moles/Vol]4.1 mmol/LNormal3.5-5.1The [facility] Comment on above:Performed By: #### URIC, RENAL, MG #### [facility] [address] [address] [address] Abel MoraSodium [Moles/Vol]142 mmol/RXnepis960-154Qve [facility] Comment on above:Performed By: #### URIC, RENAL, MG #### [facility] [address] [address] [address] Abel Stacy nitrogen [Mass/Vol]11.0 mg/dLNormal7.0-18.0The [facility] Hospitalment on above:Performed By: #### URIC, RENAL, MG #### [facility] [address] [address] [address] Abel Mbary RANDOM W/MICROSCOPICon 15-27-9788NEJELKIVFZUXXUenrhyouJGXG SEENThe [facility] HospitalComment on above:Performed By: #### UAMIC #### [facility] [address] [address] [address] Abel Sheth Ql (U)NegativeNormalNEGATIVEThe [facility] Comment on above:Performed By: #### UAMIC #### [facility] [address] [place] [address] Dr. Abel ElizabethE SEENNormalNONE SEENThe [facility] on above:Performed By: #### UAMIC #### [facility] [address] [address] [address] Abel Kuarity (U)CLEARNormalCLEARThe [facility] HospitalComdetroit receiving hospital on above: Performed By: #### UAMIC #### [facility] [address] [address] [address] Abel Bojorquez (U)LT. YELLOWNormalYELLOWThe [facility] HospitalComment on above:Performed By: #### UAMIC #### [facility] [address] [address] [address] Abel Goodwinystals LM Nom (Urine sed)NONE SEENNormalNONE SEENProMedica Memorial Hospital on above:Performed By: #### UAMIC #### [facility] [address] [address] [address] Roman ChangEpithelial cells LM Ql (Urine sed)FEWAbnormalNONE SEEN /RAREThe [facility] HospitalComdetroit receiving hospital on above:Performed By: #### UAMIC #### [facility] [address] [address] [address] Abel MoraGlucose Ql (U)NegativeNormalNEGATIVETrihealth Bethesda Butler Hospital HospitalComment on above:Performed By: #### UAMIC #### [facility] [address] [place] [address] Dr. Abel MoraHemoglobin Ql (U)TRACE-INTACTAbnormalNEGATIVETrihealth Bethesda [facility] Hospital HospitalComment on above:Performed By: #### UAMIC #### [facility] [address] [place] [address] Dr. Abel MoraKetones Ql (U)NegativeNormalNEGATIVETrihealth Bethesda [facility] Hospital HospitalComment on above:Performed By: #### UAMIC #### [facility] [address] [place] [address] Dr. Abel MoraLEUKOCYTESNegativeNormalNEGATIVELakehealth Tripoint Medical CenterComment on above:Performed By: #### UAMIC #### [facility] [address] [place] [address] Dr. Abel MoraMUCOUSNONE SEENNormalNONE SEENLakehealth Tripoint Medical CenterComment on above:Performed By: #### UAMIC #### [facility] [address] [place] [address] Dr. Abel MoraNitrite Ql (U)NegativeNormalNEGATIVETrihealth Bethes[facility] Hospital HospitalComment on above:Performed By: #### UAMIC #### [facility] [address] [place] [address] Dr. Abel MorapH (U)5.5 [pH]Normal5-9The [facility] HospitalComment on above: Performed By: #### UAMIC #### [facility] [address] [place] [address] Dr. Abel MoraQbpejOPV6-4Pruhwo6-2The [facility] HospitalComment on above:Performed By: #### UAMIC #### [facility] [address] [place] [address] Dr. Abel MoraSPEC GRAVITY1.668Ctdqec6.005-<=1.025The [facility] HospitalComment on above:Performed By: #### UAMIC #### [facility] [address] [place] [address] Dr. Abel Mabry PROTEINNegativeNormalNEGATIVE/ TRACEThe [facility] Comment on above:Performed By: #### UAMIC #### [facility] [address] [place] [address] Dr. Abel Monroebilmarlingen Qn (U)0.2 {Rolando'U}/dLNormal0.2 - 1.0The [facility] HospitalComment on above:Performed By: #### UAMIC #### [facility] [address] [place] [address] Dr. Abel MoraWBC0-2AbnormalNONE SEENThe [facility] HospitalComment on above: Performed By: #### UAMIC #### [facility] [address] [place] [address] Dr. Abel MoraURIC ACID SERUMon 75-76-7071Xnthe [Mass/Vol]5.8 mg/dLNormal 2.6-6.0The [facility] HospitalComment on above:Performed By: #### PTHINT #### [facility] [address] [place] [address] Dr. Abel Mckeon T PROTEIN CREAT RATIOon 23-90-4614Unjozsq (U) [Mass/Vol] 18.1 mg/dLCritically high<=12.0The [facility] HospitalComment on above:Performed By: #### URTPCR #### [facility] [address] [place] [address] Dr. Abel Wilkins PROT CREAT RAT0.09NormalThe [facility] HospitalComment on above: Performed By: #### URTPCR #### [facility] [address] [place] [address] Dr. Abel Mckeon EWIHE407.29 mg/pWBcqcvy59.00-300.00The [facility] Comment on above:Performed By: #### URTPCR #### [facility] [address] [place] [address] Dr. Abel MoraVITAMIN D 25 OHon 64-23-8108DUG D 25-OH54.5 ng/mLNormalThe [facility] HospitalComment on above:Performed By: #### VITAD #### [facility] [address] [place] [address] Dr. Abel JAQUEZ [facility]Comdet[facility] receiving [facility] on above: Result Comment: <20 ng/mL Vit D deficient 20 - <30 ng/mL Vit D insufficient 30 - 100 ng/mL Vit D sufficient >100 ng/mL Potential ToxicityPerformed By: #### VITAD #### [facility] [address] [place] [address] Dr. Abel Cavanaugh INTACTon 90-70-4840KVF, Dpjhjs26 pg/yRQkfqmn09-30Xrb [facility] HospitalComment on above:Performed By: #### PTHINT #### [facility] [address] [place] [address] Dr. Abel MoraHEMOGRAM AND PLATELon 75-75-9802Yffxhhpgjg (Bld) [Volume fraction]39.1 %Kaugpr38.0-48.0The [facility] HospitalComment on above:Performed By: #### PTHINT #### [facility] [address] [place] [address] Dr. Abel MoraHemoglobin (Bld) [Mass/Vol]12.6 g/pPZydjgi57.0-16.0The [facility] on above:Performed By: #### PTHINT #### [facility] [address] [place] [address] Dr. Abel Reed (RBC) [Entitic mass]29.8 yyYtvohe97.7-34.0The [facility] on above:Performed By: #### PTHINT #### [facility] [address] [place] [address] Dr. Abel Reed (RBC) [Mass/Vol]32.2 g/pAGwqtaf14.9-35.2[facility] on above:Performed By: #### PTHINT #### [facility] [address] [place] [address] Dr. Abel Reed (RBC) [Entitic vol]92.4 bCYkwney02.0-99.0The [facility] HospitalComment on above:Performed By: #### PTHINT #### [facility] [address] [place] [address] Dr. Abel MoraPLT223 103/raHocbqz491-426Lul [facility] HospitalComment on above: Performed By: #### PTHINT #### [facility] [address] [place] [address] Dr. Abel MoraRBC4.23 106/ulNormal4.20-5.40The [facility] HospitalComment on above:Performed By: #### PTHINT #### [facility] [address] [place] [address] Dr. Abel MoraWBC7.7 103/ulNormal4.0-11.0The [facility] HospitalComment on above: Performed By: #### PTHINT #### [facility] [address] [place] [address] Dr. Abel MoraMAGNESIUMon 87-25-1925Vqsqctqcd [Mass/Vol]2.2 mg/dLNormal1.8-2.4 The [facility] HospitalComment on above:Performed By: #### PTHINT #### [facility] [address] [place] [address] Dr. Abel MoraRENAL FUNCTION PANELon 56-95-5116Guvogvs [Mass/Vol]3.5 g/dLNormal 3.4-5.0The [facility] HospitalComment on above:Performed By: #### PTHINT #### [facility] [address] [place] [address] Dr. Abel MoraCalcium [Mass/Vol]9.1 mg/dLNormal8.5-10.1The [facility] Comment on above:Performed By: #### PTHINT #### [facility] [address] [place] [address] Dr. Abel MoraChloride [Moles/Vol]104 mmol/HBorqdi89-069RfrLakehealth Tripoint Medical Center Comment on above:Performed By: #### PTHINT #### [facility] [address] [address] [address] Abel MoraCO2 [Moles/Vol]29.5 mmol/OAnkvyr82.0-32.0The [facility] Comment on above:Performed By: #### PTHINT #### [facility] [address] [address] [address] Abel MoraCreatinine [Mass/Vol]1.13 mg/dLCritically high0.55-1.02The [facility] HospitalComment on above:Performed By: #### PTHINT #### [facility] [address] [address] [address] Roman ChangEGFR-AF FBEILWRT18 mL/min/1.21z2Peeecbzocp low>=60The [facility] HospitalComment on above:Performed By: #### PTHINT #### [facility] [address] [address] [address] Abel GutierrezGFR-NON AF BWKUOAAN03 mL/min/1.40x3Vgrdntppvr low>=60The [facility] HospitalComment on above:Performed By: #### PTHINT #### [facility] [address] [address] [address] Abel MoraGlucose [Mass/Vol]86 mg/cLBwaoyr07-738FqoLakehealth Tripoint Medical Center Comment on above:Performed By: #### PTHINT #### [facility] [address] [address] [address] Abel MroaPhosphate [Mass/Vol]4.5 mg/dLNormal2.6-4.7The [facility] Comment on above:Performed By: #### PTHINT #### [facility] [address] [address] [address] Abel MoraPotassium [Moles/Vol]3.8 mmol/LNormal3.5-5.1The [facility] Comment on above:Performed By: #### PTHINT #### [facility] [address] [address] [address] Abel MoraSodium [Moles/Vol]140 mmol/LDrbbvy008-985QnhLakehealth Tripoint Medical Center Comment on above:Performed By: #### PTHINT #### [facility] [address] [address] [address] Abel Stacy nitrogen [Mass/Vol]12.0 mg/dLNormal7.0-18.0The [facility] HospitalComment on above:Performed By: #### PTHINT #### [facility] [address] [address] [address] Abel Mabry RANDOM W/MICROSCOPICon 91-90-8960JLOKTEBXBRZX SEENNormalNONE SEENLakehealth Tripoint Medical CenterComment on above:Performed By: #### UAMIC #### [facility] [address] [place] [address] Dr. Abel Negreteirubin Ql (U)NegativeNormalNEGATIVEThe [facility] Comment on above:Performed By: #### UAMIC #### [facility] [address] [place] [address] Dr. Abel SinghNONE SEENNormalNONE SEENLakehealth Tripoint Medical CenterComment on above:Performed By: #### UAMIC #### [facility] [address] [address] [address] Abel Kuarity (U)CLEARNormalCLEARThe [facility] HospitalComment on above: Performed By: #### UAMIC #### [facility] [address] [address] [address] Abel Bojorquez (U)LT. YELLOWNormalYELLOWLakehealth Tripoint Medical CenterComment on above:Performed By: #### UAMIC #### [facility] [address] [address] [address] Abel MoraCrystals LM Nom (Urine sed)NONE SEENNormalNONE SEENLakehealth Tripoint Medical CenterComment on above:Performed By: #### UAMIC #### [facility] [address] [place] [address] Dr. Roman ChangEpithelial cells LM Ql (Urine sed)FEWAbnormalNONE SEEN /RAREThe [facility] HospitalComment on above:Performed By: #### UAMIC #### [facility] [address] [address] [address] Yilan ChangGlucose Ql (U)NegativeNormalNEGATIVELakehealth Tripoint Medical CenterComment on above:Performed By: #### UAMIC #### [facility] [address] [place] [address] Dr. Abel MoraHemoglobin Ql (U)NegativeNormalNEGMercy Hospital Comment on above:Performed By: #### UAMIC #### [facility] [address] [address] [address] Abel MoraKetones Ql (U)NegativeNormalNEGATIVELakehealth Tripoint Medical CenterComment on above:Performed By: #### UAMIC #### [facility] [address] [place] [address] Dr. Abel MoraLEUKOCYTESNegativeNormalNEGATIVELakehealth Tripoint Medical CenterComment on above:Performed By: #### UAMIC #### [facility] [address] [place] [address] Dr. Abel MoraMUCOUSNONE SEENNormalNONE SEENLakehealth Tripoint Medical CenterComment on above:Performed By: #### UAMIC #### [facility] [address] [place] [address] Dr. Abel MoraNitrite Ql (U)NegativeNormalNEGMercy HospitalComment on above:Performed By: #### UAMIC #### [facility] [address] [place] [address] Dr. Abel MorapH (U)6.0 [pH]Normal5-9The [facility] HospitalComment on above: Performed By: #### UAMIC #### [facility] [address] [place] [address] Dr. Abel MoraRBCNONE SEENAbnormal0-2The [facility] HospitalComment on above: Performed By: #### UAMIC #### [facility] [address] [place] [address] Dr. Abel MoraSPEC GRAVITY<=1.766Maatwpyd4.005-<=1.025L[facility] Comment on above:Performed By: #### UAMIC #### [facility] [address] [address] [address] Abel Mabry PROTEINNegativeNormalNEGATIVE/ TRACEThe [facility] Comment on above:Performed By: #### UAMIC #### [facility] [address] [place] [address] Dr. Abel Monroebilaleks Qn (U)0.2 {Rolando'U}/dLNormal0.2 - 1.0The [facility] HospitalComment on above:Performed By: #### UAMIC #### [facility] [address] [place] [address] Dr. Abel MoraWBCNONYasmine SEENNoalNONE SEENLakehealth Tripoint Medical CenterComment on above: Performed By: #### UAMIC #### [facility] [address] [place] [address] Dr. Abel MoraURIC ACID SERUMon 63-28-5062Hsion [Mass/Vol]5.9 mg/dLNormal 2.6-6.0The [facility] HospitalComment on above:Performed By: #### PTHINT #### [facility] [address] [place] [address] Dr. Abel Mckeon T PROTEIN CREAT RATIOon 11-61-6433Pinjgdl (U) [Mass/Vol]0.5 mg/dLNormal<=12.0The [facility] HospitalComment on above:Performed By: #### URTPCR #### [facility] [address] [place] [address] Dr. Abel Wilkins PROT CREAT RAT0.02NormalThe [facility] HospitalComment on above: Performed By: #### URTPCR #### [facility] [address] [place] [address] Dr. Abel Mckeon CREAT23.17 mg/bSBpiigp90.00-300.00The [facility] Comment on above:Performed By: #### URTPCR #### [facility] [address] [place] [address] Dr. Abel Marie D 25 OHon 48-76-6461ODB D 25-OH68.4 ng/mLNormalThe [facility] HospitalComment on above:Performed By: #### PTHINT #### [facility] [address] [place] [address] Dr. Abel JAQUEZ [facility] HospitalComment on above: Result Comment: <20 ng/mL Vit D deficient 20 - <30 ng/mL Vit D insufficient 30 - 100 ng/mL Vit D sufficient >100 ng/mL Potential ToxicityPerformed By: #### PTHINT #### [facility] [address] [place] [address] Dr. Abel Roper for Procedure/Surgeryon 27-01-8720Ujinjmw for Procedure/[id number]#1.00CD:127[facility] HospitalAmbulatory Clinical Summaryon 02-39-8781Uelkbpvfih Clinical Summary{88-pr-e7-c6-42-40-2s-z6-74-09-m3-69-de-03-a1-9e}CD:[id number] Health System East CampusCoding Summary.on 72-65-9895Fjnebn Summary. CD:[id number]:[id number]+PGhlYWQ+JL7HHYKtP59uwCPbrH6CG7mDXK2ILGOLWRJPIF1IAI7qd RK3VPloO1IjrrOf [file] bGxh (more content not included)...NormalOhiohealth Hardin Memorial HospitalPathology Noteon 59-37-6103Lrehiylmj Note [id number]:127NoTrinity Health System East CampusReference Lab Reporton 49-22-5949Aqqsmzrcq Lab Report [id number]#1.00CD:127NoTrinity Health System East CampusPatient Educationon 73-12-3800Nmfocpc EducationUrology Hematuria, Adult Hematuria is blood in the urine. Blood may be visible in the urine, or it may be identified with a test. This condition can be caused by infections of the bladder, urethra, kidney, or prostate. Otherpossible causes include: ? Kidney stones. ? Cancer [...] blood in your urine, even if it ispainless or the blood stops without treatment. Blood in the urine, when it happens and then stops and then happens again, can be a symptom of a very serious condition, including cancer. There is no pain in the initial stages of many urinary cancers. Follow these instructions at home: Medicines ? Take zdms-ggz-ovvaopn and prescription medicines only as told by [...] the blood stops without treatment. ? Take jwaf-cno-oyptnro and prescription medicines only as told by your health care provider. ? Drink enough fluid to keep your urine clear or pale yellow. This information is not intended to replace advice given to you by your health care provider. Make sure you discuss any questions you have with your health care provider. Document Released: 04/23/2006 Document Revised: 09/17/2019 Document Reviewed: 05/26/2017 RMDMgroup Patient Education ? 2019 [employer].[facility] Urology Office/Clinic Noteon 55-95-7648Vgyzqnt Office/Clinic NoteChief Complaint This is a 60 year old [...] and history for this pt. from Dr. Valencia. Follow-up With When Contact Information ERIK BLAKE, Ilya Chance, URL [address] [place] [address]- [phone] Additional Instructions: f/u prn Patient Education Hematuria, Adult I, Allie Casey , personally scribed for Dr. Valencia on 11/16/2020 16:10:35. . Documentation recorded by the scribe, Allie Casey, accurately reflects the services(s) I performed and decisions made by me. Authenticated by Dr. Valencia on 11/16/2020 16:16:29. Problem List/Past Medical History [...] 08/04/2020 Recorded influenza virus vaccine, inactivated 02/23/2020 RecordedCleveland Clinic Mentor HospitalComment on above:Result Comment: Electronically Signed By: Ilya VALENCIA MD\.br\Date and Time Signed: 11/16/20 16:16 EDT\.br\Electronically Co-Signed By: Allie Casey MA\.br\Date and Time Co-Signed: 11/17/2115:11 EDTRAD - Ultrasound Reporton 51-84-2231QPR - Ultrasound Report [id number]#1.00CD:127NoTrinity Health System East CampusLab Reportson 07-55-0088Rxz Reports [id number]#1.00CD:127NormalOhiohealth Hardin Memorial HospitalReminderson 37-89-5620Lxvtbrbli From: Jessi Jones To: EU - Clinical; Sent: 10/22/2020 11:37:30 EDT Show up: 11/05/2020 11:37:00 EDT Subject: urine cytology Reminder/Recall urine cytology The first urine specimen was taken by the deputy sheriff k9 handler on Sunday the and left in a bag so it was nogood for Cytology. Pt is resubmitting a specimen today the and it will be sent for FISH and Cytology. fish and cytology were negative.NormalOhiohealth Hardin Memorial HospitalLab Miscellaneous-LCon 05-74-9345Rag MiscellaneousCOMMENTInvalid Interpretation Code [facility] HospitalComment on above:Result Comment: Test Ordered: [id number] Bladder Cancer FISH, Review Bladder Cancer FISH Findings: Comment 4_ Negative UroVysion Result Fluorescence in situ hybridization (FISH) of cells recovered from urine was performed using the [employer] UroVysion Kit. A minimum of twenty-five cells was examined, and an abnormal signal pattern was not detected, indicating a NEGATIVE result. The performance characteristics of this test have been validated by [employer]. A positive result is the detection of [...] clinical data specified CPT Codes: Comment 4_ 93162 Performed at: [facility] [id number] PhD Pranav Samuelsformed By: #### [id number] ####[facility] Agjkaiwqae319 Hemant Del Angel, [id number] - CT Reporton 70-49-3964HGG - CT [id number]#1.00CD:127 [facility] HospitalRAD - CT Report [id number]#1.00CD:127NormKindred Hospital DaytonCoding Summary.on 79-01-6855Uycnfm Summary. CD:[id number]:[id number]+PGhlYWQ+YF5MBMQvH54qgNZodY8GX1iYZR3PEFNRKGBIFT4HZP5fk WT1CUrcX7ZtsbAy [file] bGxh (more content not included)...[facility] 36-04-8264Mdljgyzzd From: Andreea Prado To: EU - Clinical; Sent: 10/22/2020 11:41:48 EDT Show up: 10/29/2020 11:41:00 EDT Subject: ct scan Due Date/Time: 11/09/2020 11:41:00 EDT Reminder/Recall Order faxed to Vangie Bullock for Ct scan to be scheduled after auth approval Pt sched for 11/16/20 for Cysto, will review results at this appt Pt scheduled for CT @ [facility] on 10/30/20. CT obtained from [employer] and scanned into patient's chart.[facility] 28-09-0046Fzkambvzy From: Jessi Jones To: EU - Clinical; Sent: 10/22/2020 11:43:37 EDT Show up: 10/25/2020 11:43:00 EDT Subject: Urine culture Reminder/Recall Urine culture C&S is not finalized, still in prelims. Will check at the end of the day today. Urine culture positive. Message sent to PRW to reviewNoGlen Cove Hospitalus Medical CenterC Urineon 54-56-6862Gguxbwre identified Cx Nom (U)Microbiology PROCEDURE: Urine Culture [R1] SOURCE: U Random BODY SITE: COLLECTED DATE/TIME: 10/22/2020 11:40 EDT RECEIVED DATE/TIME: 10/25/2020 14:20 EDT START DATE/TIME: 10/25/2020 14:20 EDT FREE TEXT SOURCE: ERIK BLAKE, Ilya VALENCIA MD, Ilya Chance FINAL REPORTS Final Report [] Verified Date/Time: 10/27/2020 13:22 EDT >100,000 cfu/ml Enterococcus faecalis SUSCEPTIBILITY RESULTS LEGEND: S=Susceptible, N/R=Not Reported, Blank=Data not available, or drug not advisable or tested, I=Intermediate, ESBL=Extended spectrum beta-lactamase, R=Resistant, TFG=Thymidine-dependent strain, MARC=Beta-lactamase positive, JUN=mcg/m;(mg/L), S*=Predicted susceptible interp, R*=Predicted resistant interp Entfa[employer] Antibiotic JUN Dilutn JUN Interp Ampicillin <=2 S Ciprofloxacin <=1 S Daptomycin 4 S Levofloxacin <=1 S Linezolid <=2 S Nitrofurantoin <=32 S Penicillin 2 S Rifampin <=1 S Tetracycline >8 R Vancomycin 2 S Performing Locations R1: This test was performed at: [facility], [address] [place] [address], [address] , [place], TklmwhFqiitiTrinity Health System East CampusComment on above:Performed By: #### [id number] ####[address] [address]Rtbxckyipw Clinical Summaryon 49-05-3472Wxoufkacox Clinical Summary {81-11-o2-56-24-0d-0v-o1-61-91-5v-m7-f9-6a-64-fd}CD:528131HrikcnLqttwfCleveland Clinic Mentor HospitalLab Miscellaneous-LCon 78-62-3064Wwcl Jsyb896487Zhtwatu Interpretation [facility] CenterComment on above:Performed By: #### [id number] ####[address] [id number] NameFishInvalid Interpretation [facility] Medical CenterComment on above:Performed By: #### [id number] ####[address]Reminderson 28-54-0204Rmlpmzueg From: Amina Gifford MA To: EU - Clinical; Sent: 10/26/2020 11:32:36 EDT Show up: 11/05/2020 11:32:00 EDT Subject: FISH/CYtology Reminder/Recall FISH/CYTOLOGYNormKindred Hospital DaytonAmbulatory Clinical Summaryon 95-08-7406Kdiqzjetbw Clinical Summary {92-9c-02-64-y3-28-3n-d4-c0-91-xh-27-8a-2e-4e-8e}CD:[id number] Clinic Mentor HospitalPatient Educationon 99-71-1094Fzdncpp EducationUrology Hematuria, Adult Hematuria is blood in the urine. Blood may be visible in the urine, or it may be identified with a test. This condition can be caused by infections of the bladder, urethra, kidney, or prostate. Otherpossible causes include: ? Kidney stones. ? Cancer [...] blood in your urine, even if it ispainless or the blood stops without treatment. Blood in the urine, when it happens and then stops and then happens again, can be a symptom of a very serious condition, including cancer. There is no pain in the initial stages of many urinary cancers. Follow these instructions at home: Medicines ? Take waow-vct-saacdaw and prescription medicines only as told by [...] the blood stops without treatment. ? Take yxpu-thb-roymqhg and prescription medicines only as told by your health care provider. ? Drink enough fluid to keep your urine clear or pale yellow. This information is not intended to replace advice given to you by your health care provider. Make sure you discuss any questions you have with your health care provider. Document Released: 04/23/2006 Document Revised: 09/17/2019 Document Reviewed: 05/26/2017 RMDMgroup Patient Education ? 2019 [employer].[facility] Physician Referralon 05-22-8414Nhfeuveql Referral [id number]#1.00CD:127NoSelect [facility] Specialty [facility] renal BIon 41-43-5753BN renal [facility] [place] [address] Ultrasound Report Signed Patient: Sury Shoemaker MR#: [id number] : 1960 Acct:[id number] Age/Sex: 59 / F ADM Date: 07/28/20 Loc: [facility] Room: Type: [facility] Attending Dr: Canelo Woodard MD Ordering Provider: Canelo Woodard MD Date of Service: 07/28/20 US/US renal BI: Chronic kidney disease, stage III (moderate);Christian hy kid w cr Copies to: Canelo Woodard MD [...] Kaushal Clemente M.D.07/28/2020 2:00 PM Dictation Location: [address] [address] Tech: Evelina Corcoranakilah Transcribed By: [facility] 07/28/20 1400 Dictated By: Kaushal Clemente DO 07/28/20 1359 Signed By: 07/28/20 1400NoAd[facility] Vital Signs Date TimeVital SignValuePerforming QtbsgxlyvFmnhhmed70-75-7762 10:44-0400Body .6 cmRoman Ho MD Work Phone: [facility]04-18-2025 10:44-0400Body mass index (BMI) [Ratio]26.57 kg/k3XaujcRoman Ho MD Work Phone: [facility]04-18-2025 10:44-0400Body gciodq18.22 kgRoman Ho MD Work Phone: [facility]04-18-2025 10:44-0400Diastolic blood xzliypbd61 mm[Hg]Roman Ho MD Work Phone: [facility]04-18-2025 10:44-0400Heart rate 89 /minRoman Ho MD Work Phone: [facility]04-18-2025 10:44-8180KtN9% (BldA) [Mass fraction]99 %Roman Ho MD Work Phone: [facility]04-18-2025 10:44-0400Systolic blood htcolovu915 mm[Hg]Roman Ho MD Work Phone: [facility]03-18-2024 10:48-0400Body zrrtuk145.6 cmEmarques LICONAPLATING FOREMAN Work Phone: [employer]03-18-2024 10:48-0400Body mass index (BMI) [Ratio]26.78 kg/m6HbboeKim LOPEZ Work Phone: [employer] Fzmusj96-29-9240 10:48-0400Body qihumr98.76 kgKim LICONAPLATING FOREMAN Work Phone: [employer]03-18-2024 10:48-0400Diastolic blood wjuaysdt26 mm[Hg]Kim LICONAPLATING FOREMAN Work Phone: [phone] 10:48-0400Heart rate 78 /minEmarques LICONAPLATING FOREMAN Work Phone: [employer]03-18-2024 10:48-9765RdQ1% (BldA) [Mass fraction]97 %Kim LICONAPLATING FOREMAN Work Phone: [employer] Ryvmpc94-52-6177 10:48-0400Systolic blood ptwshnoh286 mm[Hg]Kim LICONAPLATING FOREMAN Work Phone: [employer]06-01-2023 11:00-0400Body abxhwn465.56 cmAbdul Rob Other noNasty Gal [employer] Other 06-01-2023 11:00-0400Body mass index (BMI) [Ratio] 27.39 kg/t6Zcifn Rob Other [employer] Other 06-01-2023 11:00-0400Body xonilrxnnvx12 [degF]Canelo Rob Other [employer] Other 06-01-2023 11:00-0400Body czeqfe76.39 kgAbdul Rob Other [employer] Other 06-01-2023 11:00-0400Diastolic blood vwlfulks07 mm[Hg] Canelo Rob Other [employer] Other 06-01-2023 11:00-0400Respiratory rate18 /minAbdul Rob Other [employer] Other 06-01-2023 11:00-5803ZwK1% (BldA) [Mass fraction]97 % Canelo Rob Other [employer] Other 06-01-2023 11:00-0400Systolic blood nxclovsb597 mm[Hg] Canelo Rob Other [employer] Other 04-18-2023 15:15-0400Body pubnjz879.56 cmLawprabhu Carl Other [employer] Other 04-18-2023 15:15-0400Body mass index (BMI) [Ratio] 27.29 kg/v2Putmorxnsimran Calr Other [employer] Other 04-18-2023 15:15-0400Body ayuufl50.12 kgLawreliseo Carl Other [employer] Other 04-18-2023 15:15-0400Diastolic blood mm[Hg] Angus Carl Other [employer] Other 04-18-2023 15:15-0400Systolic blood bmbkuzhf901 mm[Hg] Angus Carl Other [employer] Other 02-02-2023 14:00-0500Body etgfdd652.56 cmSchan Garcia Other [employer] Other 02-02-2023 14:00-0500Body mass index (BMI) [Ratio] 27.46 kg/m5Ignasktisjayy Garcia Other [employer] Other 02-02-2023 14:00-0500Body wpvtnpzgaaz06.3 [degF] Libby Highault Other [employer] Other 02-02-2023 14:00-0500Body mvfyct99.58 kgStjayy Garcia Other [employer] Other 02-02-2023 14:00-0500Diastolic blood pdvryeaz21 mm[Hg] Libby Jose Other [employer] Other 02-02-2023 14:00-0500Respiratory rate18 /minSchan Garcia Other [employer] Other 02-02-2023 14:00-0821YnU2% (BldA) [Mass fraction]98 % Libby Jose Other [employer] Other 02-02-2023 14:00-0500Systolic blood mm[Hg] Libby Jose Other [employer] Other 11-10-2022 14:20-0500Body wgexnf832.56 cmAbdul Rob Other [employer] Other 11-10-2022 14:20-0500Body mass index (BMI) [Ratio] 27.63 kg/k1Qwolv Rob Other [employer] Other 11-10-2022 14:20-0500Body bmaotrnfypf78.8 [degF]Canelo Rob Other [employer] Other 11-10-2022 14:20-0500Body qauxgj52.03 kgAbdul Rob Other [employer] Other 11-10-2022 14:20-0500Diastolic blood mm[Hg] Canelo Rob Other [employer] Other 11-10-2022 14:20-0500Respiratory rate16 /minAbdul Rob Other [employer] Other 11-10-2022 14:20-8561FiJ5% (BldA) [Mass fraction]97 % Canelo Rob Other [employer] Other 11-10-2022 14:20-0500Systolic blood mm[Hg] Canelo Rob Other [employer] Other 04-14-2022 14:20-0400Body bhidgn087.56 cmAbdul Rob Other [employer] Other 04-14-2022 14:20-0400Body mass index (BMI) [Ratio] 25.81 kg/d8Kwvvn Rob Other [employer] Other 04-14-2022 14:20-0400Body plddacwetuy41.7 [degF]Canelo [facility] Other 04-14-2022 14:20-0400Body guwocj65.22 kgAbdul Rob Other [facility] Other 04-14-2022 14:20-0400Diastolic blood pytywloa12 mm[Hg] Canelo Rob [facility] [employer] Other 04-14-2022 14:20-0400Respiratory rate18 /minAbdul Rob Other [facility] [employer] Other 04-14-2022 14:20-5015ZxT5% (BldA) [Mass fraction]98 % Canelo Rob Other [facility] Other 04-14-2022 14:20-0400Systolic blood veintdui295 mm[Hg] Canelo Rob Other [facility] Other Encounters Encounter DateEncounter TypeCare ProviderFacilityStart: 01-19-2025 End: 54-32-3364EmblhwMtedszs Kohler LPNProMedmickey Physicians CardiologyComment on above:Med RefillStart: 10-23-2024 End: 16-57-8924XztmgqYwoctypMilton LOPEZ Work Phone: [facility]icians CardiologyComment on above:Med RefillStart: 10-01-2024 End: 40-97-1478OptpeuIsuaTong Davis Physicians CardiologyComment on above:Med RefillStart: 09-24-2024 End: 29-90-9524nhbjjsmljiPTPLLD C ONUNC HEALTHProJoint venture between [facility] Resourcestart: 73-19-7143zekkhebfgfWVDNFW Daysi ONHAProMedica San Francisco General Hospitaltart: 08-25-2024 End: 40-37-3510xwowxrnkrxEIVOC BOUMEGOUASPSelect Medical Specialty Hospital - Trumbulltart: 08-22-2024 End: 72-74-8188Gdmslp outpatient visit 25 Mayank Ho MD Work Phone: [facility]icians CardiologyComment on above: Coronary artery disease involving chicken ranch coronary 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 (Primary Dx); ST elevation myocardial infarction involving right coronary artery ([facility]); Tobacco abuse; Mixed hyperlipidemia; Essential hypertension; Palpitations; Stage 3a chronic kidney disease ([facility])Start: 08-22-2024 End: 60-93-9976uztucburlrJGHMLKaiser Foundation Hospitaltart: 08-21-2024 End: 53-76-5771Nbrkwxqvn encounterJessi Huffman CMAProMedica Physicians CardiologyStart: 07-28-2024 End: 17-48-7637IopgdzGpchujd P Kyser PA-C Work Phone: [facility] CardiologyComment on above:Med RefillStart: 06-04-2024 End: 82-77-1172Mbevnbtxn department patient visitNO PCP NO [facility] HospitalStart: 04-28-2024 End: 10-05-2522RsedxfEpazzit P Kyser PA-C Work Phone: [facility] CardiologyComment on above:Med RefillStart: 03-11-2024 End: 97-84-4716Lctbxh French Castillo MD Work Phone: [facility] CardiologyStart: 02-20-2024 End: 40-92-2505uvjzzazvxsLFECMTFI J BIALECKIProMedTenet St. Louis HospitalStart: 01-31-2024 End: 94-79-1418Nwxrxumgn encounterHeri Davis Physicians CardiologyComment on above:Med RefillStart: 01-30-2024 End: 36-84-6517Poylor Suzy Colmenares RNPLake Charles Memorial Hospital for Womenmickey Physicians CardiologyComment on above:Essential hypertension (Primary Dx)Start: 01-28-2024 End: 52-85-6896jldrlwadokTTWNNFW P KYSERProCincinnati Shriners Hospitalca Fort Worth HospitalStart: 01-18-2024 End: 96-65-4233PdaqmiUygpkkiJaida Hernandez OFFICE CLERK ROUTINE-PLATING FOREMAN Work Phone: [facility] Physicians CardiologyComment on above:Med RefillStart: 59-54-7335EpvdmbVcieolob Schlosser OFFICE CLERK ROUTINE-PLATING FOREMAN Work Phone: [facility] Physicians CardiologyComment on above:Med RefillStart: 07-23-2023 End: 60-99-2397Sbyjoa outpatient visit 15 minutesKim Collier APRN-PLATING FOREMAN Work Phone: [facility] Physicians CardiologyComment on above: Essential hypertension (Primary Dx); ST elevation myocardial infarction involving right coronary artery (CMS-HCC); Other hyperlipidemia; Tobacco abuse; ASCVD (arteriosclerotic cardiovascular disease); DizzinessStart: 12-18-5828Wkczsdwrr encounterJessi Huffman [facility] Hospitalca Physicians CardiologyStart: 02-87-4758IzxiveYvkyoflu Lety OFFICE CLERK ROUTINE-PLATING FOREMAN Work Phone: [facility] Physicians CardiologyComment on above:Med RefillStart: 10-05-2022 End: 54-63-3101dfefkxllryMuwdq Rob Other [facility] Other Start: 14-31-2514Bpravc outpatient visit 25 minutes Canelo QadirFPG Nephrology ClydeStart: 09-26-2022 End: 21-33-0170uqsftxrjhmVZHTE QADIRFacility:N9Qpnlr: 08-22-2022 End: 95-91-4350wrjpucejxxOvjqvbeu McCormack Other nort [facility] Other Start: 89-57-5454Xolrmn outpatient visit 25 minutes Angus Justin GastroenterologyStart: 06-26-2022 End: 89-65-5541tstsjonodwHvmhjpwwf Breault Other noJuv [facility]cess[facility] Other Start: 24-38-0714Teyrcycjo encounterStepramona Garcia [facility] ClydeStart: 06-08-2022 End: 06-09-4998dnhfguoaehYlzelmnez Jose Other noJuv [employer] Other Start: 20-46-2920Jvhkpq outpatient visit 25 minutes Libby JoseFPG Family Medicine ClydeStart: 06-02-2022 End: 25-31-1227axgnseihnaEbcfqxuzv Jose Other noJuv [employer] Other Start: 06-29-7520Ipxwtqsof encounterStepramona Garcia [facility] ClydeStart: 05-17-2022 End: 76-20-1083flwqiikatzIztltpxz Siddhartha Other noJuv [employer] Other Start: 34-70-0185Ypxjzkaww encounterLawrence Siddhartha FPG GastroenterologyStart: 03-16-2022 End: 56-81-8862sjadmgfmnrEzrim Rob Other noJuv [employer] Other Start: 02-92-5082Youefp outpatient visit 15 minutes Canelo QadirFPG Nephrology ClydeStart: 03-02-2022 End: 99-81-0597tniycoofifWOAAJ QADIRFacility:M0Graao: 11-29-2021 End: 03-42-2434spgrqpzkbzWiclyqwrq Jose Other noJuv [employer] Other Start: 66-37-8365Gowvojell encounterStepramona Garcia [facility] ClydeStart: 08-18-2021 End: 84-43-7492mqehofvmumClyra Rob Other [employer] Other Start: 65-47-3274Mnjsht outpatient visit 25 minutes Canelo QadirFPG Nephrology ClydeStart: 06-06-2021 End: 35-16-5585djgalqdderNorbmdnmp Breault Other noJuv [employer] Other Start: 60-00-7306Mxaxkqqsq encounterStepramona Garcia [facility] ClydeStart: 05-20-2021 End: 16-56-0172eydapznwaxHhsyx Hykes Other nortCollege Brewer Other Start: 64-31-8650Yspfisxni encounterDavid HykesFPG GastroenterologyStart: 04-06-2021 End: 07-21-8918lzgcbevgiwMqndkmawl Breault Other noJuv Acessórios Other Start: 93-87-5341Xknbmvfej encounterStepramona Garcia [facility] ClydeStart: 35-32-5901Vzbaidimd encounterStephanie BreaultFPG Urgent Care ClydeStart: 70-14-1345Iazhowbag encounterAbdul QadirFPG Nephrology Procedures DateProcedureProcedure DetailPerforming ClinicianStart: 77-36-8219Nij routine ecg w/least 12 lds w/i&rManel Georgia BLAKE Work Phone: Start: 92-85-9816Pnzgtb-up visitFollow-upANDERSONALE HO Plan of Treatment DateCare ActivityDetailAuthorStart: 56-65-1448ZGrA,Tdap and Td Vaccines (2 - Td or Tdap)DTaP,Tdap and Td Vaccines (2 - Td or Tdap)[facility] SystemStart: 33-47-9685Zrfwf BMI ScreeningAdult BMI ScreeningProCincinnati Shriners Hospitalca Health SystemStart: 70-43-6114Qwohf BMI ScreeningAdult BMI ScreeningProCincinnati Shriners Hospitalca [facility] SystemStart: 98-16-2473Osficzl ScreeningTobacco ScreeningProMedica Health SystemStart: 15-13-5080Yfzko BMI ScreeningAdult BMI ScreeningOhioHealth Doctors Hospital SystemStart: 97-12-2497Upzevgj ScreeningTobacco ScreeningOhioHealth Doctors Hospital SystemStart: 02-27-2025 End: 80-50-8250Rwkwasq encounter procedureProMedica Physicians CardiologyStart: 44-86-3773WQAJD-19 Vaccine ()COVID-19 Vaccine ()[facility] SystemStart: 97-71-5839Edjcpshzq vaccinationInfluenza VaccineOhioHealth Doctors Hospital SystemStart: 08-22-2024 End: 07-91-2886Yyihnp monitor studyHolter monitor 24-48 hour Cardiac Services Routine Palpitations Expected: 08/22/2024, Expires: 08/22/2025[facility] Work Phone: Comment on above:Expected: 08/22/2024, Expires: 08/22/2025Start: 08-22-2024 End: 54-95-7562Yhrkjop encounter nwcobdprl64/18/2025 11:00 AM EDT Office Visit [facility] [address] [place] [address] Roman Ho MD [address] [place] [address] [facility] CardiologyStart: 53-57-5893XKWIH-19 Vaccine ()COVID-19 Vaccine ()[facility] SystemStart: 33-46-8818Ohbpj BMI ScreeningAdult BMI ScreeningOhioHealth Doctors Hospital SystemStart: 92-07-1007Qwyavso ScreeningTobacco ScreeningOhioHealth Doctors Hospital SystemStart: 02-20-2024 End: 01-62-6390Vbofl metabolic 2000 panel - Serum or PlasmaBasic Metabolic Panel Lab Routine Essential hypertension Expected: 02/20/2024, Expires: 01/29/2025 [facility] Work Phone: Comment on above:Expected: 02/20/2024, Expires: 01/29/2025Start: 09-87-9110Kmaug BMI ScreeningAdult BMI ScreeningProUc Medical Center SystemStart: 39-29-0481Lyhlsvo ScreeningTobacco ScreeningProUc Medical Center SystemStart: 12-76-5219MNNAI-19 Vaccine ( season)COVID-19 Vaccine ()ProMOwatonna Clinic SystemStart: 24-94-7639Hlaticyfz vaccination Influenza VaccineProUc Medical Center SystemStart: 46-69-4231Xwue Risk ScreeningFall Risk ScreeningProUc Medical Center SystemStart: 08-02-2023 End: 36-56-2287Koqyphj encounter procedureOhioHealth Grove [facility] - Stress ImagingStart: 07-23-2023 End: 25-24-3030TS Heart Perfusion W adenosine and W radionuclide IVNuc stress Lexiscan/Exercise Cardiac Services Routine ST elevation myocardial infarction involving right coronary artery (CMS-HCC) ASCVD (arteriosclerotic cardiovascular disease) Dizziness Expected: 07/23/2023, Expires: 07/22/2024[facility] Work Phone: Comment on above:Expected: 07/23/2023, Expires: 07/22/2024Start: 07-23-2023 End: 18-88-5244Kpwywcd encounter dhcjyxhoi71/18/2024 11:00 AM EDT Office Visit [facility] [address] [place] [address] Kim Collier, OFFICE CLERK ROUTINE-PLATING FOREMAN [address] [place] [address] [facility] CardiologyStart: 33-54-1152DTBDF-19 Vaccine ( season)COVID-19 Vaccine ( season)[facility] SystemStart: 60-74-6517Gzlrgcnbanpsyy of varicella zoster vaccineZoster (Shingles) Vaccine (1 of 2)[facility] SystemStart: 58-23-6096Bhwbybxxj for malignant neoplasm of cervixPap SmearFirstHealthtart: 47-51-8539SLcJ,Tdap and Td Vaccines (1 - Tdap)DTaP,Tdap and Td Vaccines (1 - Tdap)FirstHealthtart: 13-84-0540Tcied BMI Follow Up PlanAdult BMI Follow Up PlanFirstHealthtart: 29-81-5200Konrbbzgqg ScreeningDepression ScreeningFirstHealthtart: 04-03-1959Medicare Annual Wellness VisitMedicare Annual Wellness VisitFirstHealthtart: 51-21-7509Zbmkms Use: CardiovascularStatin Use: CardiovascularK[facility]tering Health End: 52-64-0267Kgsva metabolic 2000 panel - Serum or PlasmaBasic Metabolic Panel Lab Routine Medication management 1 Occurrences starting 01/18/2024 until 01/05K[facility] HealthComment on above:1 Occurrences starting 01/18/2024 until 01/17/2025 End: 53-23-0862Qfzps metabolic 2000 panel - Serum or PlasmaBasic Metabolic Panel Lab Routine Stage 3a chronic kidney disease (CMS-HCC) 1 Occurrences starting 0 08/22/2024 until 08/22/2025[facility] HealthComment on above:1 Occurrences starting 08/22/2024 until 08/22/2025 End: 41-77-1080Hhdle panelLipid panel Lab Routine Medication management 1 Occurrences starting 01/18/2024 until 01/17/2025[facility] Work Phone: Comment on above:1 Occurrences starting 01/18/2024 until 01/17/2025 Immunizations Immunization DateImmunizationNotesCare NjiwifslGakrrfga07-59-0537mtvlqnavy virus vaccine, unspecified formulationJessi Huffman [facility] 46-30-0333tiupaotgi virus vaccine, unspecified formulationMijulieta Davidson OFFICE CLERK ROUTINE-PLATING FOREMAN Work Phone: [facility] HealthIwoqom80-34-6003txrxjrstl, injectable, quadrivalent, preservative freeMijulieta Davidson OFFICE CLERK ROUTINE-PLATING FOREMAN Work Phone: [facility] HealthGtmsrd76-86-5953wybmxdbor, seasonal, injectableAbdul Rob Other nort [facility] Other [id number], injectable, quadrivalent, preservative freeAbdul Rob Other noNasty Gal [facility] Other Payers DatePayer CategoryPayerPolicy ID2024Medicare [id number] [id number] () FOR LIFE [id number] of Defense ( and others)[id number] of Defense ( and others)[id number] of Defense ( and others)[id number] 2.16.840.1.555024.3.57[id number] 2.16.840.1.352398.3.57[id number] 2.16.840.1.782922.3.57[id number] 2.16.840.1.554415.3.57[id number] 2.16.840.1.943390.3.57[id number] 2.16.840.1.476780.3.57[id number] 2.16.840.1.377964.3.57[id number] 2.16.840.1.827902.3.57[id number] 2.16.840.1.584345.3.57[id number] 2.840.1.477882.3.57[id number] 2..840.1.109480.3.579.2.1286Department of Defense ( and others) [id number] 2.840.1.777506.19 Social History DateTypeDetailFacilityUnknown if ever smokedIva VeraLight Other Start: 06-10-2020 End: 65-56-0116Pqm Assigned At BirthNoozarks medical center [facility] Other Start: 30-89-3022Lrnrvdw smoking status NHISEx-smoker [facility] SystemStart: 05-29-1991 End: 61-07-4435Jnfvwxb of tobacco useCurrent smokerOhioHealth Doctors Hospital SystemStart: 05-29-1991 End: 32-99-5257Nhzvhrs of tobacco useCigarette SmokerOhioHealth Doctors Hospital System Start: 06-10-2020 End: 48-97-6515Patfnammra smoked current (pack per day) - Nekevcre2FmvKl[address] [place], [place] [address]tart: 50-18-9612Ytjmerk use and exposureSmokeless tobacco non-user FirstHealthtart: 07-23-2023 End: 69-79-4037Fifsitrzl beverage intakeCurrent drinker of alcohol (finding) [facility] HealthChildcareUnknowOhioHealth Southeastern Medical Center SystemStart: 06-21-2021 Alcohol Commentonce in a whileFirstHealthtart: 67-15-0962Sfj assigned at birthNot on fileFirstHealthtart: 95-33-4712QohIvwfzi (finding)[facility] Medical Equipment Procedure CodeEquipment CodeEquipment Original TextEquipment IdentifierDates System Cor Stnt 3.5mm X 23mm 145cm Xience Skypoint Mtlnk Maria L - [id number] FDAStart: 05-26-2021 Clinical Notes 10-22-2020 to 10-01-2024 Note Date & NtchTgdpEorckthh42-79-4350 Miscellaneous Notes* Telephone Encounter - Solange Goldstein RN - 10/01/2024 8:44 AM EDT Last OV 08/22/24.slm documented in this encounterKettering Health05-28-2025 Telephone encounter Note* Telephone Encounter - Solange Goldstein RN - 10/01/2024 8:44 AM EDT Last OV 08/22/24.slm [facility]04-18-2025 History of Present illness Narrative* Roman Ho MD - 08/22/2024 11:00 AM EDT Sury Deep Shoemaker Date of visit: 08/22/2024 Date of : 1960 Age: 64 y.o. Patient Active Problem List Diagnosis ST elevation myocardial infarction (STEMI) ([facility]) Other hyperlipidemia Essential hypertension Tobacco abuse No Known Allergies Current Outpatient Medications Medication Sig Dispense Refill aspirin 81 mg chewable tablet Chew 1 tablet (81 mg total) and swallow in the morning. 90 tablet 1 atorvastatin (LIPITOR) 40 mg tablet TAKE 1 TABLET BY MOUTH NIGHTLY 90 tablet 1 cetirizine (ZyrTEC) 10 mg tablet Take 1 tablet (10 mg total) by mouth in the morning. lisinopriL (PRINIVIL,ZESTRIL) 2.5 mg tablet TAKE 1 TABLET BY MOUTH EVERY MORNING 90 tablet 1 metoprolol succinate XL (TOPROL XL) 25 mg 24 hr tablet TAKE 1 TABLET BY MOUTH IN THE MORNING 90 tablet 0 nitroglycerin (NITROSTAT) 0.[address] 1 tablet (0.4 mg total) under the tongue every 5 (five) minutes as needed for chest pain. 90 tablet 1 pantoprazole (PROTONIX) 40 mg EC tablet Take 1 tablet (40 mg total) by mouth in the morning. fluticasone propionate (FLONASE) 50 mcg/actuation nasal spray Administer 1 spray into each nostril in the morning. (Patient not taking: Reported on 08/22/2024) 16 g 0 No current facility-administered medications for this visit. Chief Complaint Patient presents with Follow-up 13 mo f/u-l/s EKK-no labs or testing History of Present Illness 64-year-old female is here in follow-up. She has a history of STEMI status post RCA PCI in 2021. She denies chest pain shortness of breath. She reports palpitations daily the last couple of minutes and resolve spontaneously. 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 N/A 05/26/2021 Performed by Gustavo Sanchez MD at [facility] CARDIAC CATH LABS CARDIAC CATHETERIZATION 05/26/2021 Coronary angiogram and left ventricular gram/pressure N/A 05/26/2021 Performed by Gustavo Sanchez MD at [facility] CARDIAC CATH LABS ELBOW SURGERY LAMINECTOMY Revascularization occlusion with myocardial infarction drug eluting stent right coronary artery N/05/26/2021 Performed by Gustavo Sanchez MD at [facility] CARDIAC CATH LABS SHOULDER SURGERY TUBAL LIGATION Family History Problem Relation Age of Onset Cancer Mother Heart disease Father Social History Socioeconomic History Marital status: Spouse name: Not on file Number of children: Not on file Years of education: Not on file Highest education level: Not on file Occupational History Not on file Tobacco Use Smoking status: Former Current packs/day: 0.00 Average packs/day: 1 pack/day for 30.0 years (30.0 ttl pk-yrs) Types: Cigarettes Start date: 05/29/1991 Quit date: 05/29/2021 Years since quittin.2 Smokeless tobacco: Never Vaping Use Vaping status: Never Used Substance and Sexual Activity Alcohol use: Yes Comment: once in a while Drug use: Never Sexual activity: Defer Other Topics Concern Caffeine Use Yes Social History Narrative Not on file Social Drivers of Health Financial Resource Strain: Not on file Food Insecurity: No Food Insecurity (08/22/2024) Hunger Screening Food Insecurity - Worry: Never True Food Insecurity - Inability: Never True Transportation Needs: Not on file Physical Activity: Not on file Stress: Not on file Social Connections: Not on file Interpersonal Safety: Not on file Housing Instability: Not on file Review of Systems Review of Systems Constitutional: Negative. HENT: Negative. Eyes: Negative. Cardiovascular: Negative. Respiratory: Negative. Endocrine: Negative. Hematologic/Lymphatic: Bruises/bleeds easily. Skin: Negative. Musculoskeletal: Positive for back pain. Gastrointestinal: Negative. Genitourinary: Negative. Neurological: Positive for dizziness and loss of balance. Psychiatric/Behavioral: Negative. Allergic/Immunologic: Positive for environmental allergies. Vascular: Negative. CARDIOVASCULAR: Please review HPI. Physical Examination General [...] Appropriate mood, memory and judgement. VITAL SIGNS: Ht 162.6 cm (5' 4 ) Wt 70.2 kg (154 lb 12.8 oz) BMI 26.57 kg/m No orders of the defined types were placed in this encounter. There are no discontinued medications. IMPRESSIONS/PLAN There are no diagnoses linked to this encounter. Single-vessel Coronary artery disease status post PCI to ostial and proximal RCA with MARIA L on 05/26/2021 in the setting of STEMI Preserved LV ejection fraction, normal diastolic function and no significant valvular disease Palpitations Primary hypertension uncontrolled Hyperlipidemia LDL 76 CKD stage 3 Former tobacco abuse quit 2021. Increase Toprol to 50 mg daily with palpitation and get a 48 hour monitor Increase lisinopril to 5 mg daily and repeat basic metabolic panel in a week. Instructed to check her blood pressure at home we will continue to up titrate her meds to achieve goal blood pressure less than 130/80 mm Hg Her LDL was above goal however I do not have recent labs we will await her yearly labs and up titrate Lipitor to 80 mg if still above 70 grams/deciliter TODAYS ORDERS No orders of the defined types were placed in this encounter. FOLLOW UP No follow-ups on file. PCP: MONIKA LYONS MD Referring Physician: No referring provider defined for this encounter. documented in this encounterAdams County Regional Medical CenterAldexa Therapeutics Holland HospitalTzvtse32-30-3286 Miscellaneous Notes* Telephone Encounter - Jessi Huffman CMA - 08/21/2024 8:39 AM EDT Called patient to remind them to bring their most current copy of their medication list with them to their appt. Patient verbalizes understanding. documented in this encounterAdams County Regional Medical CenterAldexa Therapeutics Holland HospitalSdszga34-53-5595 Telephone encounter Note* Telephone Encounter - Jessi Huffman CMA - 08/21/2024 8:39 AM EDT Called patient to remind them to bring their most current copy of their medication list with them to their appt. Patient verbalizes understanding. [facility] Maimai [id number] Miscellaneous Notes* Telephone Encounter - Marion Islas RN - 07/28/2024 10:08 AM EDT Last OV-07/23/2023 Letter sent. documented in this [facility]03-24-2025 Telephone encounter Note* Telephone Encounter - Marion Islas RN - 07/28/2024 10:08 AM EDT Last OV-07/23/2023 Letter sent. [facility]12-23-2024 Miscellaneous Notes* Telephone Encounter - Heri Higgins RN - 04/28/2024 12:53 PM EST OV 07/23/23 02/20/24 BMP 01/28/24 Lipids documented in this [facility]12-23-2024 Telephone encounter Note* Telephone Encounter - Heri Higgins RN - 04/28/2024 12:53 PM EST OV 07/23/23 02/20/24 BMP 01/28/24 Lipids [facility]09-26-2024 Miscellaneous Notes* Telephone Encounter - Heri Higgins RN - 01/31/2024 3:18 PM EDT OV 07/23/23 01/28/24 BMP documented in this [facility]09-26-2024 Telephone encounter Note* Telephone Encounter - Heri Higgins RN - 01/31/2024 3:18 PM EDT OV 07/23/23 01/28/24 BMP [facility]09-13-2024 Miscellaneous Notes* Telephone Encounter - Cathie Romero RN - 01/18/2024 8:03 AM EDT Please sign and route. Thank you RUMA 07/23/23 Lipids 01/22/23 - Labs pended; letter mailed. documented in this encounterKettering Health09-13-2024 Miscellaneous Notes* Telephone Encounter - Cathie Romero RN - 01/18/2024 8:03 AM EDT Please sign and route. Thank you RUMA 07/23/23 documented in this encounterKettering Health09-13-2024 Telephone encounter Note* Telephone Encounter - Cathie Romero RN - 01/18/2024 8:03 AM EDT Please sign and route. Thank you RUMA 07/23/23 Lipids 01/22/23 - Labs pended; letter mailed. [facility]09-13-2024 Telephone encounter Note* Telephone Encounter - Cathie Romero RN - 01/18/2024 8:03 AM EDT Please sign and route. Thank you RUMA 07/23/23 [facility]03-18-2024 History of Present illness Narrative* Kim Collier, OFFICE CLERK ROUTINE-PLATING FOREMAN - 07/23/2023 11:00 AM EDT Sury Shoemaker Date of visit: 07/23/2023 Date of : 1960 Age: 62 y.o. Patient Active Problem List Diagnosis ST elevation myocardial infarction (STEMI) ([facility]) Other hyperlipidemia Essential hypertension Tobacco abuse No [...] 6 MS L/S MAS LABS A T GARY History of Present Illness is a 62 yo F who presents to the office today for her 6 month follow up. She has a hx of CAD s/pstenting, HTN, HLD, and former tobacco use. 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 N/A 05/26/2021 Performed by Gustavo Sanchez MD at [facility] CARDIAC CATH LABS CARDIAC CATHETERIZATION 05/26/2021 Coronary angiogram and left ventricular gram/pressure N/A 05/26/2021 Performed by Gustavo Sanchez MD at [facility] CARDIAC CATH LABS ELBOW SURGERY LAMINECTOMY Revascularization occlusion with myocardial infarction drug eluting stent right coronary artery N/05/26/2021 Performed by Gustavo Sanchez MD at [facility] CARDIAC CATH LABS SHOULDER SURGERY TUBAL LIGATION [...] JOHN Robles 07/23/23 1136 documented in this encounterSpringfield HospitalGradalis [id number] Instructions* Patient Instructions* JOHN Robles - 07/23/2023 11:00 AM EDT PLAN Complete stress test. BP and HR are well controlled. Lipid panel is in great range. Continue cardiac medications. Recommend follow-up in 1 year. Please call the office if you develop new or worsening symptoms and we will see you sooner. documented in this encounterSpringfield HospitalGradalis [id number] Miscellaneous Notes* Telephone Encounter - Jessi Huffman CMA - 07/20/2023 12:47 PM EDT Called patient to remind them to bring their most current copy of their medication list with them to their appt. Patient verbalizes understanding. [facility] encounter [facility]* Telephone Encounter - Jessi Huffman CMA - 07/20/2023 12:47 PM EDT Called patient to remind them to bring their most current copy of their medication list with them to their appt. Patient verbalizes understanding. [facility]12-27-[facility]23 Miscellaneous Notes* Telephone Encounter - Elda Dooley LPN - 05/02/2023 11:32 AM EST Last ov 01/24/23 Lipid 02/01/23 [facility] Telephone encounter Note* Telephone Encounter - Elda Dooley LPN - 05/02/2023 11:32 AM EST Last ov 01/24/23 Lipid 02/01/23 [facility]06[facility] Evaluation note* Encounter Date Diagnosis Assessment Notes Treatment Notes Treatment Clinical Notes Oct, Chronic kidney disease, stage II I (moderate) (ICD-10 - N18.30) She has CKD due to HTN with baseline serum creatinine 1.1 mg/dL. Her renal US showed unremarkable kidneys. I discussed with the importance of good HTN control to slow down the progression of CKD. Oct,en hy kid w cr kid I-IV (ICD-10 - I12.9)Her blood pressure is Controlled . She appears to be euvolemic. Continue current dose of the metopro lol and lisinopril Oct,Vitamin D deficiency (ICD-10 - E55.9)Calcium is within normal limit. Continue oral vitamin D Oct,idney stone (ICD-10 - N20.0)She has a history of kidney stones but denies any recent passage of it. I have advised her adequately hydrate herself. Oct,Microscopic hematuria (ICD-10 - R31.29)She has microscopic hematuria and was seen by Urologist . She had Cystoscopy which she reported that was unremarkable [facility] 04-18-2023 Evaluation note* Encounter Date Diagnosis Assessment Notes Treatment Notes Treatment Clinical Notes Aug, Peptic ulcer disease (ICD-10 - K 27.9) DOING WELL ON PANTOPRAZOLE Aug,Epigastric pain (ICD-10 - R10.13) Aug,Screen for colon cancer (ICD-10 - Z12.11) [facility] Other 02-20-2023 Evaluation note* Encounter Date Diagnosis Assessment Notes Treatment Notes Treatment Clinical Notes Jun, Essential hypertension (ICD-10 - I10) [facility] Other 02-02-2023 Evaluation note* Encounter Date Diagnosis Assessment Notes Treatment Notes Treatment Clinical Notes Jun, Follow-up exam (ICD-10 - Z09) Discussed all test results in office today and what further steps are needed. Patient states understanding. Jun,Essential hypertension (ICD-10 - I10)Medications refills [facility] Other 01-27-2023 Evaluation note* Encounter Date Diagnosis Assessment Notes Treatment Notes Treatment Clinical Notes May, Essential hypertension (ICD-10 - I10) [facility] 11-10-2022 Evaluation note* Encounter Date Diagnosis Assessment Notes Treatment Notes Treatment Clinical Notes Mar, Chronic kidney disease, stage II I (moderate) (ICD-10 - N18.30) She has CKD due to HTN with baseline serum creatinine 1.1 mg/dL. Her renal US showed unremarkable kidneys. I discussed with the importance of good HTN control to slow down the progression of CKD. Mar,en hy kid w cr kid I-IV (ICD-10 - I12.9)Her blood pressure is Controlled . She appears to be euvolemic. Continue current dose of the metopro lol and lisinopril 10 Nov, 2022Vitamin D deficiency (ICD-10 - E55.9)Calcium is within normal limit. Continue oral vitamin D Mar,Kidney stone (ICD-10 - N20.0)She has a history of kidney stones but denies any recent passage of it. I have advised her adequately hydrate herself. Mar,Microscopic hematuria (ICD-10 - R31.29)She has microscopic hematuria and was seen by Urologist . She had Cystoscopy which she reported that was unremarkable [facility] Other 07-26-2022 Evaluation note* Encounter Date Diagnosis Assessment Notes Treatment Notes Treatment Clinical Notes Nov, Essential hypertension (ICD-10 - I10) [facility] Other 04-14-2022 Evaluation note* Encounter Date Diagnosis Assessment Notes Treatment Notes Treatment Clinical Notes Aug, Chronic kidney disease, stage II I (moderate) (ICD-10 - N18.30) She has CKD due to HTN with baseline serum creatinine 1.1 mg/dL. Her renal US showed unremarkable kidneys. I discussed with the importance of good HTN control to slow down the progression of CKD. Aug,en hy kid w cr kid I-IV (ICD-10 - I12.9)Her blood pressure is Controlled . She appears to be euvolemic. Continue current dose of the metopro lol and lisinopril Aug,Vitamin D deficiency (ICD-10 - E55.9)Calcium is within normal limit. I have advised her to change the dosoquin 3x week due to the high normal vitamin D Aug,Kidney stone (ICD-10 - N20.0)She has a history of kidney stones but denies any recent passage of it. I have advised her adequately hydrate herself. Aug,Microscopic hematuria (ICD-10 - R31.29)She has microscopic hematuria and was seen by Urologist . She had Cystoscopy which she reported that was unremarkable [facility] Other 01-31-2022 Evaluation note* Encounter Date Diagnosis Assessment Notes Treatment Notes Treatment Clinical Notes May, Essential hypertension (ICD-10 - I10) [facility] Other 01-20-2022 History general Narrative - Reported* Type Description Date Medical History Kidney stones Medical HistoryHTNMedical HistoryGERD (gastroesophageal reflux disease)Medical HistoryAnxietyMedical HistoryHEART ATTACK 05/26/2021urgical Historylumpectomy, left breast i1Sqpilext HistorycolonoscopySurgical HistoryHEART STENT05/2021 Hospitalization HistoryHEART ATTACK05/2021 [facility] Other 01-20-2022 History general Narrative - Reported* Type Description Date Medical History Kidney stones Medical HistoryHTNMedical HistoryGERD (gastroesophageal reflux disease)Medical HistoryAnxietyMedical HistoryHEART ATTACK 05/26/2021urgical Historylumpectomy, left breast y6Oazdyyix HistorycolonoscopySurgical HistoryHEART STENT05/2021 Hospitalization HistoryHEART ATTACK05/2021Hospitalization HistoryNO [facility] IN THE LAST YEAR (SINCE HEART ATTACK IN 2021)08/2022 [facility] Other 12-01-2021 Evaluation note* Encounter Date Diagnosis Assessment Notes Treatment Notes Treatment Clinical Notes Apr, Vitamin D deficiency (ICD-10 - E 55.9) [facility] Other 06-18-2021 NoteChief Complaint Referral for hematuria [...] Will order Local anesthesia. ABX sent to [facility] in [place]. 2. Dysuria (R30.0: Dysuria) Intermittent. 3. History of kidney stones (Z87.442: Personal history of urinary calculi) Lithotripsy done in the past. Ordering CT. 4. CKD (chronic kidney disease), stage III (N18.30: Chronic kidney disease, stage 3 unspecified) Managed by Dr. Woodard. I have reviewed the previous health record information and history for this pt. from Dr. Valencia. Follow-up With When Contact Information ERIK BLAKE, Ilya Chance, URL [address] [place] [address]- [phone] Additional Instructions: Patient Education Hematuria, Adult I, Allie Casey , personally scribed for Dr. Valencia on 10/22/2020 11:25:14. . Documentation recorded by the scribe, Allie Casey, accurately reflects the services(s) I performed and decisions made by me. Authenticated by Dr. Valencia on 10/22/2020 11:26:23. Problem List/Past Medical History [...] 10/22/2020 Family History Diabetes (more content not included)...[facility] HospitalComment on above:Result Comment: Electronically Signed By: Ilya VALENCIA MD\.br\Date and Time Signed: 10/22/20 11:26 EDT\.br\Electronically Co-Signed By: Allie Casey MA\.br\Date and Time Co-Signed: 10/22/2110:25 EDTEvaluation noteNo InformationNortHaven Behavioral Healthcare [facility] Other Evaluation note* Diagnosis Essential hypertension- Primary Unspecified essential hypertension ST elevation myocardial infarction involving right coronary artery ([facility]) Other hyperlipidemia Tobacco abuse Tobacco use disorder ASCVD (arteriosclerotic cardiovascular disease) Unspecified cardiovascular disease Dizziness Dizziness and giddiness [facility] Diagnosis Medication management- Primary [facility] Diagnosis Essential hypertension- Primary Unspecified essential hypertension documented [facility]* Diagnosis Coronary artery disease involving chicken ranch coronary 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- Primary ST elevation myocardial infarction involving right coronary artery ([facility]) Tobacco abuse Tobacco use disorder Mixed hyperlipidemia Essential hypertension Unspecified essential hypertension Palpitations Stage 3a chronic kidney disease ([facility]) documented [facility] this [facility]* Diagnosis Essential hypertension Unspecified essential hypertension documented in this encounter [facility] SystemHistory general Narrative - Reported* Type Description Date Medical History Kidney stones Medical HistoryHTNMedical HistoryGERD (gastroesophageal reflux disease)Medical HistoryAnxietySurgical Historylumpectomy, left breast o9Obeufvdg History colonoscopyHospitalization HistoryNo Hospitalization history information [facility] Other InstructionsNot on filedocumented in this encounter [facility] SystemInstructionsNot on filedocumented in this encounter [facility] SystemInstructionsNot on filedocumented in this encounter [facility] SystemInstructionsNot on filedocumented in this encounter [facility] SystemInstructionsNot on filedocumented in this encounter [facility] SystemInstructionsNot on filedocumented in this encounter [facility] SystemInstructionsNot on filedocumented in this encounter [facility] SystemInstructionsNot on filedocumented in this encounter [facility] SystemInstructionsNot on filedocumented in this encounter [facility] SystemInstructionsNot on filedocumented in this encounter [facility] Summary Purpose Family History No Family History Records FoundNo Family History Records FoundNo Family History Records FoundNo Family History Records Found Advance Directives No Advanced Directives Records FoundNo Advanced Directives Records FoundNo Advanced Directives Records FoundNo Advanced Directives Records Found Reason for Referral SpecialtyDiagnoses / ProceduresReferred By ContactReferred To Contact Diagnoses ST elevation myocardial infarction involving right coronary artery (CMS-HCC) ASCVD (arteriosclerotic cardiovascular disease) Dizziness Procedures Nuc stress Lexiscan/Exercise Kim Collier, OFFICE CLERK ROUTINE-PLATING FOREMAN [address] [place] [address] [facility] [address] [place] [address] Phone: [phone] Referral IDStatusReasonStart DateExpiration DateVisits RequestedVisits [id number] Review Additional Source Comments INFORMATION SOURCE (unrecogn ized section and content) DATE CREATED AUTHOR 11/19/2020 [facility] DATE CREATED AUTHOR AUTHOR'S ORGANIZ ATION 06/24/2021 [facility] DATE CREATED AUTHOR AUTHOR'S ORGANIZ ATION 10/13/2022 [facility] DATE CREATED AUTHOR AUTHOR'S ORGANIZ ATION 10/05/2024 [facility] REASON FOR VISIT (unrecogniz ed section and content) ReasonOnset DateCommentsMed Xsbwiv1401/19/2025ReasonOnset DateCommentsMed Refill 10/01/2024ReasonCommentsFollow-up13 mo f/u-l/s EKK-no labs or testingReasonOnset DateCommentsMed Camglu0001/31/2024easonCommentsFollow-upEST PT F/U 6 MS L/S MAS LABS A T FREReasonCommentsMed RefillPATIENT HERE FOR 1 YEAR FOLLOW UPFOLLOW UP HTN, MED REFILLS, Simone Lab/Test Follow upClinical AcuteMedicineCKD and HTNCKDREFILL Care Teams (unrecognized sec tion and content) Team MemberRelationshipSpecialtyStart DateEnd Date No Pcp, [place] [address] PCP - GeneralFamily Medicine01/24/23Team MemberRelationshipSpecialtyStart DateEnd Date No Pcp, [place] [address] PCP - GeneralFamily Medicine01/24/23Team MemberRelationshipSpecialtyStart DateEnd Date No Pcp, [place] [address] PCP - GeneralFamily Medicine01/24/23Team MemberRelationshipSpecialtyStart DateEnd Date No Pcp, [place] [address] PCP - GeneralFamily Medicine01/24/23Team MemberRelationshipSpecialtyStart DateEnd Date No Pcp, [place] [address] PCP - GeneralFamily Medicine01/24/23Team MemberRelationshipSpecialtyStart DateEnd Date No Pcp, [place] [address] PCP - GeneralFamily Medicine01/24/23Team MemberRelationshipSpecialtyStart DateEnd Date No Pcp, [place] [address] PCP - GeneralFamily Medicine01/24/23Team MemberRelationshipSpecialtyStart DateEnd Date No Pcp, [place] [address] PCP - GeneralFamily Medicine06/04/24Team MemberRelationshipSpecialtyStart DateEnd Date No Pcp, [place] [address] PCP - GeneralFamily Medicine06/04/24Team MemberRelationshipSpecialtyStart DateEnd Date Monika Lyons MD [address] [place] [address] PCP - GeneralInternal Medicine08/22/24Team MemberRelationshipSpecialtyStart Date End Date Monika Lyons MD [address] [place] [address] PCP - GeneralInternal Medicine08/22/24Team MemberRelationshipSpecialtyStart Date End Date Monika Lyons MD [address] [place] [address] PCP - GeneralInternal Medicine08/22/24 FOR RECORDS PERTAINING TO PATIENTS WHO ARE [...] BE BASED ON THE PRIMARY CLINICAL RECORDS. [facility]. provides no warranty or guarantee of the accuracy or completeness of information in this document.
[2025-03-02 10:31] LABS: Protein Creatinine Ratio Urine 0.12; Total Protein Urine Random 55.1 mg/dL (<=11.9)
[2025-03-02 10:54] LABS: Albumin Level 3.6 g/dL (3.4-5.0); Anion Gap 10.8; Blood Urea Nitrogen 13.0 mg/dL (7.0-18.0); Calcium 9.4 mg/dL (8.5-10.1); Carbon Dioxide 29.0 mmol/L (21.0-32.0); Chloride 99 mmol/L (98-107); Estimated GFR (African America >60 (>=60 mL/min/1.73m^2); Estimated GFR (Non-African Ame 52 (>=60 mL/min/1.73m^2); Glucose 103 mg/dL (74-106); Magnesium 2.2 mg/dL (1.8-2.4); Potassium 3.8 mmol/L (3.5-5.1); Sodium 135 mmol/L (136-145); Uric Acid 5.6 mg/dL (2.6-6.0)
[2025-03-02 10:57] LABS: Glucose Urine UA NEGATIVE (NEGATIVE)
[2025-03-02 11:19] LABS: Cast Seen? NONE SEEN #/LPF (NONE SEEN); Crystals Seen? None Seen #/HPF (None Seen)
== END 2025-03-02 09:59 | disposition home or self-care (01) ==
LOC: LAB 10:04
PROVIDERS: Visit Provider Internal Medicine
DX: R31.29 Other microscopic hematuria (principal); N20.0 Calculus of kidney; E55.9 Vitamin D deficiency, unspecified; I12.9 Hypertensive chronic kidney disease with stage 1 through stage 4 chronic kidney disease, or unspecified chronic kidney disease; N18.30 Chronic kidney disease, stage 3 unspecified
CPT/HCPCS: 36415; 80069; 81001; 82306; 82570; 83735; 83970; 84156; 84550; 85027